=== PATIENT | female | born 1955 | race Caucasian/White ===

== ENCOUNTER 2023-11-20 07:08 | Outpatient (RCR) | payer MEDICARE, OTHER, SELFPAY | END 2023-11-20 23:59 | disposition home or self-care (01) | LOC: RPT 07:08 | PROVIDERS: ATTENDING PHYSICIAN Physical Medicine & Rehabilitation; FAMILY PHYSICIAN Family Medicine | DX: I69.398 Other sequelae of cerebral infarction (principal); Z73.6 Limitation of activities due to disability; I69.320 Aphasia following cerebral infarction | CPT/HCPCS: 92507; 97110; 97535 ==

== ENCOUNTER 2023-11-23 06:57 | Outpatient (RCR) | payer MEDICARE, OTHER, SELFPAY | END 2023-11-23 23:59 | disposition home or self-care (01) | LOC: RPT 06:57 | PROVIDERS: ATTENDING PHYSICIAN Physical Medicine & Rehabilitation; FAMILY PHYSICIAN Family Medicine | DX: I69.320 Aphasia following cerebral infarction (principal); I69.354 Hemiplegia and hemiparesis following cerebral infarction affecting left non-dominant side; I69.322 Dysarthria following cerebral infarction; I69.312 Visuospatial deficit and spatial neglect following cerebral infarction; Z73.6 Limitation of activities due to disability | CPT/HCPCS: 92507; 97110; 97535 ==

== ENCOUNTER 2024-01-18 11:22 | Emergency (ER) | payer MEDICARE, OTHER, SELFPAY ==
[2024-01-18 11:25] VITALS: BP 182/107
--- NOTE | 2024-01-18 12:44 | ED.GENMED ---
History of Present Illness
General
Chief Complaint: Skin Problem
Source: patient and spouse
Time Seen by Provider: 01/18/24 12:00
Travel History
Have you had any contact with someone who has COVID-19?: No
Do you have any symptoms of coronavirus? Fever > 100 degrees, chills, cough, shortness of breath, sore throat, loss of taste or smell, muscle aches, or headache?: No
History of Present Illness
History of Present Illness:
68-year-old female with past medical history of CVA, hypertension, hyperlipidemia, previous rectal cancer presenting to the emergency department for evaluation after she started with left ring finger swelling, pain and erythema over the last 12
hours. Patient notes she has 7 rings on this finger. She normally does not take the rings off. She denies any trauma to the affected area. No other concerns.
Past History
Past History
ED Past Medical History: Cancer, CVA, HTN and Hypercholesterolemia
Social History
Tobacco: Non-smoker
Alcohol: None
Drug: None
Personal:
Living: with family
Review of Systems
Review of Systems
All Other Systems: ROS reviewed and negative except as documented in HPI and ROS
Phy Exam
Physical Exam
Physical Exam:
GENERAL: Alert , in no apparent distress
EYE: conjunctiva clear
Head: Normocephalic atraumatic
NECK: Supple,
ENT: mmm.
LUNGS: no acute respiratory distress
NEUROLOGICAL: Alert and oriented
SKIN: Warm and dry, skin intact.
MUSCULOSKELETAL: well perfused. Multiple rings on the left ring finger with surrounding erythema, edema and ecchymosis. Sensation is intact. Hand/finger is malodorous. Patient does allow for range of motion of the finger but does complain of
pain while doing so
PSYCH: Normal and appropriate interaction.
Scores
Heart Failure Risk
Heart Failure Risk Score: Not Applicable
Heart Score for Chest Pain Patients
STEMI patient?: Not applicable
Withdrawal Assessment of Alcohol
Withdrawal Assessment Completed?: Not applicable
Course
Vital Signs
Initial and Last Documented VS:
Initial Vital Signs
Temp Pulse Resp BP Pulse Ox
97.9 F 82 18 182/107 97
01/18/24 11:25 01/18/24 11:25 01/18/24 11:25 01/18/24 11:25 01/18/24 11:25
Last Documented Vital Signs
Temp Pulse Resp BP Pulse Ox
97.9 F 82 18 182/107 97
01/18/24 11:25 01/18/24 11:25 01/18/24 11:25 01/18/24 11:25 01/18/24 11:25
Procedures
Digital Block
Location of injection for digital block: base of digit
Indiction for Digital Block: pain relief
Was sensory exam normal prior to exam?: intack pin prick
Type of anesthesia: 1% Lidocaine w/o EPI
Complications: none- good anesthesia
Ring removal
Ring removed with: lubricant and other
Is finger swollen distally?: Yes
Distal sensation: intact to touch
Distal capillary refill: brisk
MDM/Problems Addressed
Differential Diagnosis Includes:
Edema is secondary to multiple rings, tenosynovitis, cellulitis
MDM/Problems Addressed:
68-year-old female presenting to the emergency department due to pain over the ring finger with inability to get multiple rings off of her finger secondary to pain and edema. There does appear to be some sort of infectious process underneath the
rings. Due to significant pain patient was digitally blocked with adequate anesthesia that allowed for further exam and removal of rings. 3 rings were removed completely intact. 4 of the rings needed to be cut with [employer] trauma ring cutters.
There was superficial bleeding from the areas of edema following the ring removal with overlying erythema. I do have concern for an overlying cellulitis. Will irrigate wound copiously with saline and peroxide. Discussion of oral antibiotics and
at home management versus inpatient IV antibiotics discussed and patient ultimately be prefers a trial of home antibiotics. She will either come back to the emergency department on Monday to be reevaluated by myself or follow-up with her primary
care provider early in the week next week.
*Pulse Oximetry
Patient hypoxic: no
*Critical Care Note
Total Time (30-74mins, 75-104mins- exclusive of procedures): Not Applicable
ED Attending Note
-
Portions of this chart may have been created with voice recognition software.� Occasional wrong word or��sound alike� substitutions may have occurred due to the inherent limitations of voice recognition software.
Discharge Plan
Departure
Patient Disposition: Home (Routine Discharge)
Date of Disposition: 01/18/24
Time of Disposition: 13:18
Patient with high blood pressure during this ER visit?: Yes
Discharge Problem:
Cellulitis of right ring finger, Ring or other jewelry causing external constriction, initial encounter
Instructions: Cellulitis (Skin Infection), Adult (DC)
Prescriptions:
New
cephalexin 500 mg tablet
500 mg PO Q8H 7 Days Qty: 21 0RF
No Action
atorvastatin 80 MG tablet
80 mg PO DAILY
oxybutynin chloride 5 mg tablet extended release 24hr
5 mg PO QPM
levothyroxine [Synthroid] 50 mcg tablet
50 mcg PO DAILY
vitamin A-vitamin C-vit E-min Tablet
1 tab PO DAILY
omega 5-exo-awm-fish oil [Fish Oil] 1,000 mg (120 mg-180 mg) Capsule
1 cap PO DAILY
aspirin 81 mg Tablet,Chewable
81 mg PO DAILY Qty: 30 0RF
famotidine 20 mg Tablet
20 mg PO DAILY Qty: 30 0RF
cholecalciferol (vitamin D3) 25 mcg (1,000 unit) Tablet
25 mcg PO DAILY Qty: 30 0RF
alendronate 70 MG tablet
70 mg PO WEEKLY Qty: 4 0RF
amlodipine 2.5 MG tablet
2.5 mg PO DAILY Qty: 30 0RF
warfarin [Jantoven] 5 mg Tablet
5 mg PO QPM Qty: 30 0RF
Referrals:
Diego Rosenberg MD [Family Provider] -
Activity Restrictions/Additional Instructions:
Return to the ER on Monday after 9am to see me for wound follow up
Interventions
Interventions:
*Risk Screen - Suicide Last Done: 01/18/24 11:28
*General Assessment Last Done: 01/18/24 11:28
*Neglect/Abuse Screening Last Done: 01/18/24 11:28
*ED COVID-19 Vaccine History Last Done: 01/18/24 11:28
*Nursing Disposition Last Done: 01/18/24 14:05
ED-Skin Assessment Last Done: 01/18/24 12:29
Discharge Date and Time
Discharge Date/Time: 01/18/24 14:05
Print Language: JORDANIAN
== END 2024-01-18 14:05 | disposition home or self-care (01) ==
LOC: EMR 11:22
PROVIDERS: EMERGENCY PHYSICIAN Emergency Medicine; FAMILY PHYSICIAN Family Medicine
DX: L03.011 Cellulitis of right finger (principal); W49.04XA Ring or other jewelry causing external constriction, initial encounter; R22.32 Localized swelling, mass and lump, left upper limb; I10 Essential (primary) hypertension; E78.00 Pure hypercholesterolemia, unspecified; Z85.048 Personal history of other malignant neoplasm of rectum, rectosigmoid junction, and anus; Z86.73 Personal history of transient ischemic attack (TIA), and cerebral infarction without residual deficits
CPT/HCPCS: 99283

== ENCOUNTER 2024-08-23 15:43 | Emergency (ER) | payer MEDICARE, OTHER, SELFPAY ==
[2024-08-23 15:52] VITALS: BP 150/82; BMI 25.0
--- NOTE | 2024-08-23 16:08 | ED.GENMED ---
History of Present Illness
General
Chief Complaint: Psychiatric Problem
Time Seen by Provider: 08/23/24 16:07
History of Present Illness
History of Present Illness:
TIME OF INITIAL ENCOUNTER: 4:15 PM
HPI: Patient comes in from home and reportedly wants to 302 the patient. She reportedly ran out into the neighbors earlier today. She has been having worsening cognitive function as a slow progression over the last several months.
EXAM:
GENERAL: The patient has somewhat of a bizarre affect however is well-groomed
HEENT: Moist oral mucosa
CARDIOVASCULAR: No murmurs, normal heart rate, regular rhythm, No chest wall tenderness
PULMONARY: No respiratory distress, breath sounds are clear and equal
ABDOMEN: Soft with no peritoneal signs, no tenderness
NEUROLOGIC: Excellent strength all extremities, no coordination deficits
PSYCHIATRIC: She does not understand why she is here, has limited insight and judgment, not oriented to month or place
EXTREMITIES: Nontender, no edema, moves all extremities equally
SKIN: No rash, no lesions
NUMBER AND COMPLEXITY OF PROBLEMS ADDRESSED AT THE ENCOUNTER
� Chronic conditions affecting care: High blood pressure, hyperlipidemia, records indicate that she has been aphasic after stroke
� Acute Exacerbation and/or Progression of Chronic Illness: This is an acute problem
� Differential Diagnosis includes: Progressive functional decline, worsening aphasia, cognitive deficits related to old stroke, psychosis
AMOUNT AND/OR COMPLEXITY OF DATA TO BE REVIEWED AND ANALYZED
� I performed an independent evaluation of and my interpretation is:
EKG:
CT:
X-rays:
Laboratory Studies: UDS and urinalysis unremarkable, alcohol undetected, CBC shows mild anemia with hemoglobin just slightly lower than baseline, normal electrolytes, minimal renal insufficiency near baseline
Other:
� Review of other/old records: I reviewed records, the patient was seen by speech therapy in November 2023 and at that time there was evidence for 'mild receptive and moderate expressive aphasia and she presented with deficits in
reading comprehension and written language formulation'
� Clinical information was obtained by an independent historian: EMS
� Prescriptions/Medications Considered but not given:
� Further testing considered but not performed:
RISK OF COMPLICATIONS AND/OR MORBIDITY OR MORTALITY OF PATIENT MANAGEMENT
� Social determinants of health affecting care: Lives at home with
� Discussion with other providers: Discussed with crisis
� Escalation of care including admission/observation vs risk of discharge considered:
ANY OTHER UPDATES:
8:30 PM: Still awaiting disposition from crisis
8:45 PM: 302 was not upheld. Telepsych felt this is more dementia related and I do agree. The patient is not oriented to month and cannot tell me her age and does not understand why she is here. The tells me that this has been a slow
progression. I favor more of a diagnosis of dementia versus worsening executive function related to prior strokes. She has an appointment to see a neurologist in 2 weeks.
Past History
Past History
ED Past Medical History: Cancer, CVA, HTN and Hypercholesterolemia
Social History
Tobacco: Non-smoker
Alcohol: None
Drug: None
Personal:
Living: with family
Phy Exam
Physical Exam
Physical Exam:
See HPI
Course
Orders/Labs/Results
Orders:
Orders
08/23/24 16:49
Alcohol Urgent
Complete Blood Count/With Diff Urgent
Comprehensive Metabolic Panel Urgent
Drug Screen, Urine [Urine Drug Abuse Screen] Urgent
Date Specimen was Collected: 08/23/24
Time Specimen was Collected: 16:16
TSH Reflex To Free T4 Urgent
Urinalysis Reflex To Culture Urgent
Date Specimen was Collected: 08/23/24
Time Specimen was Collected: 16:16
08/23/24 17:56
Crisis Consult Urgent
Reason for Consult: 302
Abnormal Lab Results
08/23/24
16:49
RBC 3.59 L 10^6/uL
(4.20-5.40)
Hgb 10.1 L g/dL
(12.0-16.0)
Hct 29.6 L %
(37.0-47.0)
Absolute Lymphs (auto) 0.4 L 10^3/uL
(1.2-3.4)
Neutrophils % 86.1 H %
(42.2-75.2)
Lymphocytes % 5.9 L %
(20.5-51.1)
BUN 20 H mg/dl
(7-17)
Creatinine 1.2 H mg/dL
(0.6-1.0)
Glucose 108 H mg/dl
(70-99)
AST 43 H U/L
(14-36)
08/23/24 16:49
08/23/24 16:49
Vital Signs
Initial and Last Documented VS:
Initial Vital Signs
Temp Pulse Resp BP Pulse Ox
98.6 F 88 20 150/82 99
08/23/24 15:52 08/23/24 15:52 08/23/24 15:52 08/23/24 15:52 08/23/24 15:52
Last Documented Vital Signs
Temp Pulse Resp BP Pulse Ox
98.6 F 88 20 150/82 99
08/23/24 15:52 08/23/24 15:52 08/23/24 15:52 08/23/24 15:52 08/23/24 15:52
*Critical Care Note
Total Time (30-74mins, 75-104mins- exclusive of procedures): Not Applicable
ED Attending Note
-
Portions of this chart may have been created with voice recognition software.� Occasional wrong word or��sound alike� substitutions may have occurred due to the inherent limitations of voice recognition software.
Discharge Plan
Departure
Patient Disposition: Home (Routine Discharge)
Date of Disposition: 08/23/24
Time of Disposition: 18:17
Patient with high blood pressure during this ER visit?: No
Discharge Problem:
Dementia
Instructions: Dementia ED
Prescriptions:
No Action
atorvastatin 80 MG tablet
80 mg PO DAILY
oxybutynin chloride 5 mg tablet extended release 24hr
5 mg PO QPM
levothyroxine [Synthroid] 50 mcg tablet
50 mcg PO DAILY
vitamin A-vitamin C-vit E-min Tablet
1 tab PO DAILY
omega 3-pln-tmk-fish oil [Fish Oil] 1,000 mg (120 mg-180 mg) Capsule
1 cap PO DAILY
aspirin 81 mg Tablet,Chewable
81 mg PO DAILY Qty: 30 0RF
cephalexin 500 mg tablet
500 mg PO Q8H 7 Days Qty: 21 0RF
famotidine 20 mg Tablet
20 mg PO DAILY Qty: 30 0RF
cholecalciferol (vitamin D3) 25 mcg (1,000 unit) Tablet
25 mcg PO DAILY Qty: 30 0RF
alendronate 70 MG tablet
70 mg PO WEEKLY Qty: 4 0RF
amlodipine 2.5 MG tablet
2.5 mg PO DAILY Qty: 30 0RF
warfarin [Jantoven] 5 mg Tablet
5 mg PO QPM Qty: 30 0RF
Activity Restrictions/Additional Instructions:
Based on my evaluation of the patient, I think that her symptoms very well could be related to either dementia or worsening cognitive dysfunction related to prior stroke. There is no sign of an acute abnormality based on her blood work and urine.
It is very important that you go with her to see the neurologist on the . Return here if worse or any other barth.
Interventions
Interventions:
*Risk Screen - Suicide Last Done: 08/23/24 15:52
*General Assessment Last Done: 08/23/24 15:52
*Neglect/Abuse Screening Last Done: 08/23/24 15:52
ED- Fall Risk Assessment Last Done: 08/23/24 15:52
*ED COVID-19 Vaccine History Last Done: 08/23/24 15:52
ED-Psychological Assessment Last Done: 08/23/24 15:52
Discharge Date and Time
Print Language: CROATIAN
[2024-08-23 16:58] LABS: % Basophils 0.5 % (0-2); % Eosinophils 0.5 % (0-6); % Immature Granulocytes 0.3 % (0-0.5); % Lymphocytes 5.9 % (20.5-51.1); % Monocytes 6.7 % (1.7-9.3); % Neutrophils 86.1 % (42.2-75.2); Absolute Lymphocytes 0.4 10^3/uL (1.2-3.4); Absolute Monocytes 0.4 10^3/uL (0.1-0.6); Absolute Neutrophils 5.2 10^3/uL (1.4-6.5); Hematocrit 29.6 % (37.0-47.0); Hemoglobin 10.1 g/dL (12.0-16.0); Mean Corp Hgb Conc. 34.1 g/dL (33.0-37.0); Mean Corpuscular Hgb 28.1 pg (27.0-31.0); Mean Corpuscular Volume 82.5 fL (81.0-99.0); Mean Platelet Volume 9.9 fL (7.4-10.4); Nucleated Red Blood Cells % 0 %; Platelet Count 189 10^3/uL (130-400); Red Blood Cell Count 3.59 10^6/uL (4.20-5.40); Red Cell Dist. Width 14.2 % (11.5-14.5); White Blood Cell Count 6.1 10^3/uL (4.8-10.8)
[2024-08-23 17:30] LABS: ALT (SGPT) 29 U/L (0-35); AST (SGOT) 43 U/L (14-36); Albumin 4.1 g/dl (3.5-5.0); Alcohol None Detected; Alkaline Phosphatase 68 U/L (38-126); Blood Urea Nitrogen 20 mg/dl (7-17); Calcium 9.2 mg/dl (8.4-10.2); Carbon Dioxide 25 mmol/L (22-30); Chloride 107 mmol/L (98-107); Estimated Creatinine Clearance 39 ml/min; Glucose 108 mg/dl (70-99); Potassium 4.7 mmol/L (3.5-5.1); Sodium 141 mmol/L (135-145); Total Bilirubin 0.7 mg/dl (0.2-1.3); Total Protein 6.9 g/dl (6.3-8.2)
[2024-08-23 17:59] LABS: TSH Reflex To Free T4 3.64 uIU/ml (0.47-4.68)
[2024-08-23 18:24] LABS: Urine Albumin Negative (Neg - Trace); Urine Bilirubin Negative (Negative); Urine Character Clear (Clear); Urine Color Yellow; Urine Glucose Negative (Negative); Urine Ketone Negative (Negative); Urine Leukocyte Negative (Negative); Urine Nitrite Negative (Negative); Urine Occult Blood Negative (Negative); Urine Urobilinogen Negative (Neg - 1+); Urine pH 6.5 (5.0-9.0)
[2024-08-23 18:46] LABS: Amphetamines Negative (Negative); Barbiturates Negative (Negative); Benzodiazepines Negative (Negative); Buprenorphine Negative (Negative); Cocaine Negative (Negative); Marijuana Negative (Negative); Methadone Negative (Negative); Methamphetamines Negative (Negative); Opiates Negative (Negative); Phencyclidine Negative (Negative); Tricyclic Antidepressants Negative (Negative)
[2024-08-23 20:38] VITALS: BP 127/95
== END 2024-08-23 21:01 | disposition home or self-care (01) ==
LOC: EMR 15:43
PROVIDERS: EMERGENCY PHYSICIAN Emergency Medicine; FAMILY PHYSICIAN Internal Medicine
DX: F03.90 Unspecified dementia, unspecified severity, without behavioral disturbance, psychotic disturbance, mood disturbance, and anxiety (principal); E78.00 Pure hypercholesterolemia, unspecified; I10 Essential (primary) hypertension; Z86.73 Personal history of transient ischemic attack (TIA), and cerebral infarction without residual deficits
CPT/HCPCS: 99283; 80053; 80306; 81003; 82077; 84443; 85025

== ENCOUNTER 2024-09-02 13:43 | Emergency (ER) | payer MEDICARE, OTHER, SELFPAY ==
[2024-09-02 13:49] VITALS: BP 156/87
--- NOTE | 2024-09-02 14:30 | ED.GENMED ---
History of Present Illness
<Frank Greene PA-C - Last Filed: 09/02/24 16:50>
General
Chief Complaint: Social Service Referral
Source: patient
Exam Limitations: none
Time Seen by Provider: 09/02/24 14:12
History of Present Illness
History of Present Illness:
68-year-old female presents for reevaluation. She was here 1 week ago for the same. She has a history of dementia and her behavior has been calm more violent lately. She is very agitated. She is a flight risk and has run several times from the
house. She throws things at family members. She does not recognize her family members. It is not safe for her to be home or for her family members to be around her. They are looking for placement. Patient was here 1 week ago under 302 but the
302 was not upheld as there was underlying dementia. It has come to the point now where the family is unable to take care of her.
Past History
<Frank Greene PA-C - Last Filed: 09/02/24 16:50>
Past History
ED Past Medical History: Cancer, CVA, HTN and Hypercholesterolemia
Social History
Tobacco: Non-smoker
Alcohol: None
Drug: None
Personal:
Living: with family
Phy Exam
<BASILIO Raman Last Filed: 09/02/24 16:50>
Physical Exam
Physical Exam:
General: Well-appearing female no acute respiratory distress
HEENT: Normocephalic atraumatic
Heart: Regular rate and rhythm no murmurs
Lungs: Clear no wheeze
Abdomen soft nontender nondistended
Extremities: No cyanosis
Course
<BASILIO Raman Last Filed: 09/02/24 16:50>
Orders/Labs/Results
Orders:
Orders
09/02/24 14:05
Case Management Consult ONCE
Case Management Consult: VN/Home Care
Comment: worsening dimentia-aggressive. family can not care for her.
09/02/24 14:21
PT Consult [Pt Eval And Treat] Urgent
Activity Level: Ambulate
09/02/24 14:33
Crisis Consult Urgent
Reason for Consult: agitation
09/02/24 15:07
PSYCHIATRY CONSULT Urgent
Consulting Provider: Sylvester Gonsales
Was physician already notified: Yes
09/02/24 19:09
Drug Screen, Urine [Urine Drug Abuse Screen] Urgent
09/02/24 19:10
Electrocardiogram (*1) Urgent
Reason for Study: Other
Other Reason for Exam: alt ms
CT Head W/o Iv Contrast Urgent
Comment:
Reason For Exam: alt ms
EKG- Treatment ONCE
Alprazolam [Xanax] 0.5 mg PO NOW STA
09/03/24 08:00
Escitalopram Oxalate [Lexapro] 5 mg PO DAILY
Vital Signs
Initial and Last Documented VS:
Initial Vital Signs
Temp Pulse Resp BP Pulse Ox
98.3 F 76 20 156/87 97
09/02/24 13:49 09/02/24 13:49 09/02/24 13:49 09/02/24 13:49 09/02/24 13:49
Last Documented Vital Signs
Temp Pulse Resp BP Pulse Ox
98.3 F 76 20 156/87 97
09/02/24 13:49 09/02/24 13:49 09/02/24 13:49 09/02/24 13:49 09/02/24 13:49
<Patrick Ames, DO - Last Filed: 09/02/24 19:54>
Orders/Labs/Results
Orders:
Orders
09/02/24 14:05
Case Management Consult ONCE
Case Management Consult: VN/Home Care
Comment: worsening dimentia-aggressive. family can not care for her.
09/02/24 14:21
PT Consult [Pt Eval And Treat] Urgent
Activity Level: Ambulate
09/02/24 14:33
Crisis Consult Urgent
Reason for Consult: agitation
09/02/24 15:07
PSYCHIATRY CONSULT Urgent
Consulting Provider: Sylvester Gonsales
Was physician already notified: Yes
09/02/24 19:09
Drug Screen, Urine [Urine Drug Abuse Screen] Urgent
09/02/24 19:10
Electrocardiogram (*1) Urgent
Reason for Study: Other
Other Reason for Exam: alt ms
CT Head W/o Iv Contrast Urgent
Comment:
Reason For Exam: alt ms
EKG- Treatment ONCE
Alprazolam [Xanax] 0.5 mg PO NOW STA
09/03/24 08:00
Escitalopram Oxalate [Lexapro] 5 mg PO DAILY
Vital Signs
Initial and Last Documented VS:
Initial Vital Signs
Temp Pulse Resp BP Pulse Ox
98.3 F 76 20 156/87 97
09/02/24 13:49 09/02/24 13:49 09/02/24 13:49 09/02/24 13:49 09/02/24 13:49
Last Documented Vital Signs
Temp Pulse Resp BP Pulse Ox
98.3 F 76 20 156/87 97
09/02/24 13:49 09/02/24 13:49 09/02/24 13:49 09/02/24 13:49 09/02/24 13:49
Mileylt;Frank Greene PA-C - Last Filed: 09/02/24 16:50>
MDM/Problems Addressed
Differential Diagnosis Includes:
Patient here with progressive decline in cognitive function now associated with violent behavior and behaviors that pose her risk for others or for herself. Family unable to take care of patient. Patient had lab work done last time she was here.
No new issues otherwise but they are worsening. Discussed with case management who feels as though this is more appropriate for [facility] placement. Will consult crisis
<Frank Greene PA-C - Last Filed: 09/02/24 16:50>
*Critical Care Note
Total Time (30-74mins, 75-104mins- exclusive of procedures): Not Applicable
<Frank Greene PA-C - Last Filed: 09/02/24 16:50>
Update Note
Update Note:
Discussed case with CM, crisis and psychiatry who all saw the patient. Psychiatry recommends placement in geriatric psychiatric facility secondary to level of agitation and dementia. Crisis team working on placement. I reviewed labs from last
week. No new studies were ordered at this time.
Crisis working on placement for [facility]. Case signed out
ED Attending Note
<Frank Greene PA-C - Last Filed: 09/02/24 16:50>
-
Portions of this chart may have been created with voice recognition software.� Occasional wrong word or��sound alike� substitutions may have occurred due to the inherent limitations of voice recognition software.
<Patrick Ames DO - Last Filed: 09/02/24 19:54>
ED Attending Note
Patient seen and examined by attending physician: Yes
I performed the substantive portion of visit, reviewed & personally made and approve the management plan that is documented in note by myself or ROJELIO.: Yes
I performed a history and physical exam of patient and discussed management with resident, I reviewed resident's note and agree with documented findings and plan of care.: Yes
ED Attending Note:
Patient intermittently agitated while in ED. She was seen by psychiatry who recommended Lexapro but not ordered until the morning. Giving a dose of Xanax. Currently awaiting placement. EKG unremarkable and QTc 408 ms.
Discharge Plan
Departure
Patient Disposition: Psych Facility
Date of Disposition: 09/02/24
Time of Disposition: 16:49
Discharge Problem:
Dementia
Prescriptions:
No Action
atorvastatin 80 MG tablet
80 mg PO DAILY
oxybutynin chloride 5 mg tablet extended release 24hr
5 mg PO QPM
levothyroxine [Synthroid] 50 mcg tablet
50 mcg PO DAILY
vitamin A-vitamin C-vit E-min Tablet
1 tab PO DAILY
omega 6-ntq-zvn-fish oil [Fish Oil] 1,000 mg (120 mg-180 mg) Capsule
1 cap PO DAILY
aspirin 81 mg Tablet,Chewable
81 mg PO DAILY Qty: 30 0RF
cephalexin 500 mg tablet
500 mg PO Q8H 7 Days Qty: 21 0RF
famotidine 20 mg Tablet
20 mg PO DAILY Qty: 30 0RF
cholecalciferol (vitamin D3) 25 mcg (1,000 unit) Tablet
25 mcg PO DAILY Qty: 30 0RF
alendronate 70 MG tablet
70 mg PO WEEKLY Qty: 4 0RF
amlodipine 2.5 MG tablet
2.5 mg PO DAILY Qty: 30 0RF
warfarin [Jantoven] 5 mg Tablet
5 mg PO QPM Qty: 30 0RF
Referrals:
Diego Rosenberg MD [Family Provider] -
Interventions
Interventions:
*Risk Screen - Suicide Last Done: 09/02/24 14:12
*General Assessment Last Done: 09/02/24 14:12
*Neglect/Abuse Screening Last Done: 09/02/24 14:12
ED-Psychological Assessment Last Done: 09/02/24 14:12
Discharge Date and Time
Print Language: POLISH
--- NOTE | 2024-09-02 14:35 | CM ---
Addendum entered by Yady Tse RN 09/02/24 15:57:
CM was made aware that crisis cannot place in [facility] at this time due to concerns for lack of psychiatric diagnosis, disposition plan at family is going to refuse to take her home and patient does not have a POA. CM updated CM director with
discharge planning difficulties. CM advised ED PA that placement in a SNF or dementia unit would be difficult as patient's behaviors are not managed.
Plan to await psychiatry consult.
Original Note:
CM reviewed medical records. Patient has been denied a 302 during last admission. CM met with family and they would be agreeable to a 201 for [facility]. CM advised PA to consult crisis.
--- NOTE | 2024-09-02 16:31 | CS.PSYCHR ---
Consult Summary - Psychiatry
-
Pt is a 68 yo female with history of several ischemic strokes, last in April of 2023, who presents with progressive cognitive decline, mood and behavior disturbance. Dtr and (reportedly is POA) present, giving history; pt is unable to give
relevant history. Pt was brought to ED last week for same issues. Family states pt started on Zyprexa 5 mg HS for the past 3 days without benefit. Pt reportedly crying and perseverating daily, not eating or sleeping regularly, up repeatedly at
night. Family reports pt has been easily agitated, throwing things including furniture and clothes down the stairway, wanders out of the house. Pt reportedly needs increasing help with self-care and the home is not equipped (eg has a claw-foot
tub, pt not able to negotiate). Dtr lives in [place], came to help and notes a marked deterioration in the pt, did not recognize dtr at first.
Psych Hx: denied prior to onset of strokes in Nov 2019, reported cognitive decline since then
No prior inpatient or outpatient psychiatric treatment. Started on Zyprexa 5 mg HS- took for the past 3 nights- not effective per family
PMH: ischemic strokes- 11/2019, February 2022 L frontal lobe, April 2023 Rt frontal/parietal; hypertension, hyperlipidemia, anal cancer in remission S/P resection
SH: retired, residing with in older home in [place]
MSE: alert, sitting on gurney, oriented to self/name only, not able to give history, perseverative- repeats 'help me'. No current agitation. No signs of psychosis. Affect is tearful, mood depressed, expressing feelings of guilt
Imp: Unspecified Depressive d/o
Dementia, likely vascular, progressive, with behavior disturbance
Rec: Inpatient [facility] placement. Start trial of SSRI;
would hold off Zyprexa for now- could give 5 mg IM prn for severe agitation/aggressive behavior
will follow
[2024-09-02] MEDS: XANAX 0.5 MG PO (19:17)
[2024-09-02 20:40] VITALS: BP 144/78
[2024-09-03 05:39] VITALS: BP 139/74
[2024-09-03 06:55] VITALS: BP 145/89
[2024-09-03] MEDS: LEXAPRO 5 MG PO (07:17)
[2024-09-03] MEDS: ZYPREXA 5 MG IM (07:29)
[2024-09-03] MEDS: ATIVAN 2 MG IM (08:32)
--- NOTE | 2024-09-03 09:38 | ED.CRISIS ---
ED Crisis Note
ED Crisis Note
Subjective:
Patient sent in for aggressive behavior in the setting of known dementia. Seen by psychiatry, medications adjusted (Zyprexa changed to as needed, started on SSRI). No acute events overnight has been resting comfortably but this morning patient
awake and more agitated, trying to get out of bed and difficult to redirect.
Objective:
Awake and alert, pleasant but disoriented. Actively trying to climb out of bed.
Assessment/Plan:
68-year-old female with dementia presents with worsening behavioral issues. Already seen by psychiatry and medications have been adjusted, they are working towards placement and in fact she has a [facility] bed available at 3 PM today.
Currently here in the ER however she is agitated and difficult to redirect. Will give a dose of IM Zyprexa, IM Ativan and continue to monitor.
--- NOTE | 2024-09-03 12:01 | W.PN.UPDATE ---
Update Note
Progress Note Update
Pt seen, reviewed with Crisis and ED nurse. Pt was trying to get out of bed overnight/early this morning- was given Zyprexa and Ativan IM. Pt is sleeping, resting quietly. Crisis staff report potential bed at [facility] in [facility].
Imp: Unspecified Depressive d/o
Dementia, likely vascular, progressive, with behavior disturbance
Rec: pursuing inpatient [facility] placement
--- NOTE | 2024-09-03 12:48 | EDRN ---
Pt has a lot of jewelry on her person... 5 bracelets, at least 4 necklaces ( yellow metal chains and 1 that resembles pearls). She has rngs on her lt hand ring finger. There were earrings in place but the prior shift removed these and they are in a
container in a belonging bag with her shoes. I am not trying to remove anything from her d/t her degree of dementia and agitation potential , I did take photos and will try to attach photos to her chart
--- NOTE | 2024-09-03 12:54 | EDRN ---
[facility] on Mrs Beatty
[2024-09-03 15:58] VITALS: BP 111/75
== END 2024-09-03 16:01 ==
LOC: EMR 13:43
PROVIDERS: CONSULT PHYSICIAN Psychiatry & Neurology Psychiatry; EMERGENCY PHYSICIAN Emergency Medicine; FAMILY PHYSICIAN Family Medicine
DX: F03.918 Unspecified dementia, unspecified severity, with other behavioral disturbance (principal); I10 Essential (primary) hypertension; E78.00 Pure hypercholesterolemia, unspecified; Z86.73 Personal history of transient ischemic attack (TIA), and cerebral infarction without residual deficits; Z85.048 Personal history of other malignant neoplasm of rectum, rectosigmoid junction, and anus
CPT/HCPCS: 96372; 99285; 70450; 93005; J2358

== ENCOUNTER 2024-11-04 06:56 | Emergency (ER) | payer MEDICARE, OTHER, SELFPAY ==
[2024-11-04 07:00] VITALS: BP 112/76
[2024-11-04 07:31] LABS: % Basophils 0.6 % (0-2); % Eosinophils 0.4 % (0-6); % Immature Granulocytes 0.7 % (0-0.5); % Lymphocytes 5.9 % (20.5-51.1); % Monocytes 5.7 % (1.7-9.3); % Neutrophils 86.7 % (42.2-75.2); Absolute Lymphocytes 0.3 10^3/uL (1.2-3.4); Absolute Monocytes 0.3 10^3/uL (0.1-0.6); Absolute Neutrophils 4.7 10^3/uL (1.4-6.5); Hematocrit 26.9 % (37.0-47.0); Hemoglobin 8.8 g/dL (12.0-16.0); Mean Corp Hgb Conc. 32.7 g/dL (33.0-37.0); Mean Corpuscular Hgb 28.6 pg (27.0-31.0); Mean Corpuscular Volume 87.3 fL (81.0-99.0); Mean Platelet Volume 9.3 fL (7.4-10.4); Nucleated Red Blood Cells % 0 %; Platelet Count 117 10^3/uL (130-400); Red Blood Cell Count 3.08 10^6/uL (4.20-5.40); White Blood Cell Count 5.4 10^3/uL (4.8-10.8)
[2024-11-04 07:34] LABS: Urine Albumin Trace (Neg - Trace); Urine Bilirubin Negative (Negative); Urine Character Slightly Cloudy (Clear); Urine Color Yellow; Urine Glucose Negative (Negative); Urine Ketone Negative (Negative); Urine Leukocyte 2+ (Negative); Urine Nitrite Positive (Negative); Urine Occult Blood Negative (Negative); Urine Urobilinogen Negative (Neg - 1+); Urine pH 6.5 (5.0-9.0)
[2024-11-04 07:41] LABS: ALT (SGPT) 18 U/L (0-35); AST (SGOT) 27 U/L (14-36); Albumin 3.1 g/dl (3.5-5.0); Alkaline Phosphatase 97 U/L (38-126); Blood Urea Nitrogen 20 mg/dl (7-17); Calcium 8.2 mg/dl (8.4-10.2); Carbon Dioxide 24 mmol/L (22-30); Chloride 102 mmol/L (98-107); Glucose 110 mg/dl (70-99); Lipase 101 U/L (23-300); Potassium 4.1 mmol/L (3.5-5.1); Sodium 136 mmol/L (135-145); Total Bilirubin 0.4 mg/dl (0.2-1.3); Total Protein 6.2 g/dl (6.3-8.2); eGFR > 60.00
--- NOTE | 2024-11-04 07:48 | ED.GENMED ---
Addendum entered and electronically signed by Frank Greene PA-C 11/07/24 07:02:
Urine culture shows greater than 100,000 colony-forming units of E. coli. Treated with fosfomycin. The E. coli was pansensitive
Original Note:
History of Present Illness
General
Chief Complaint: Seizure
Source: patient
Exam Limitations: altered mental status and dementia
Time Seen by Provider: 11/04/24 07:33
Nursing documentation reviewed up to this point in time: agreed with
History of Present Illness
History of Present Illness:
68-year-old female past medical history of dementia previous stroke hypertension hyperlipidemia presenting to the emergency department after her prison staff believes she was having convulsions. They claimed that she was having spasms of the
right shoulder. EMS observed this as well and believe it look like she was having spasm of the shoulder but otherwise she was responding and speaking with them en route. She does have dementia at baseline and is not oriented to person place or
time at baseline. They also noticed blood to her lip
Past History
Past History
ED Past Medical History: Cancer, CVA, HTN and Hypercholesterolemia
Social History
Tobacco: Non-smoker
Alcohol: None
Drug: None
Personal:
Living: with family
Review of Systems
Review of Systems
Allergies reviewed?: Yes
All Other Systems: ROS reviewed and negative except as documented in HPI and ROS
Phy Exam
Physical Exam
Physical Exam:
GENERAL: Alert , in no apparent distress
EYE: pupils equal and reactive
NECK: Supple, no significant adenopathy.
ENT: o/p clr, mmm.
CARDIAC: Regular rate and rhythm .
LUNGS: Clear breath sounds bilaterally, no acute respiratory distress, no wheezes/rales/rhonchi
ABDOMEN: Soft, without focal tenderness, no r/g, no cvat
NEUROLOGICAL: Moving all extremities no focal neuro deficits
SKIN: Warm and dry, skin intact.
MUSCULOSKELETAL: No edema, well perfused.
PSYCH: Normal and appropriate interaction.
Course
Orders/Labs/Results
Orders:
Orders
11/04/24 07:20
COVID-19 Antigen Urgent
Source: Nasal Swab
Complete Blood Count/With Diff Urgent
Comprehensive Metabolic Panel Urgent
Lipase Urgent
Urinalysis Reflex To Culture Urgent
Date Specimen was Collected: 11/04/24
Time Specimen was Collected: 07:04
Urine Microscopic Reflex Cult Urgent
Influenza A+B Rapid Molecular Urgent
[place] Source: Nasal Swab
Specimen Description:
Urine Culture Urgent
[place] Source: U
Specimen Description:
Date Specimen was Collected: 11/04/24
Time Specimen was Collected: 07:04
11/04/24 07:45
CT Head W/o Iv Contrast Urgent
Comment:
Reason For Exam: AMS, seizure like activity
11/04/24 09:04
Fosfomycin [Monurol] 3 gm PO ONCE ONE
Abnormal Lab Results
11/04/24
07:20
RBC 3.08 L 10^6/uL
(4.20-5.40)
Hgb 8.8 L g/dL
(12.0-16.0)
Hct 26.9 L %
(37.0-47.0)
MCHC 32.7 L g/dL
(33.0-37.0)
RDW 15.0 H %
(11.5-14.5)
Plt Count 117 L 10^3/uL
(130-400)
Absolute Lymphs (auto) 0.3 L 10^3/uL
(1.2-3.4)
Immature Gran % 0.7 H %
(0-0.5)
Neutrophils % 86.7 H %
(42.2-75.2)
Lymphocytes % 5.9 L %
(20.5-51.1)
BUN 20 H mg/dl
(7-17)
Glucose 110 H mg/dl
(70-99)
Calcium 8.2 L mg/dl
(8.4-10.2)
Total Protein 6.2 L g/dl
(6.3-8.2)
Albumin 3.1 L g/dl
(3.5-5.0)
Urine Nitrite (Reflex) Positive A
(Negative)
Leukocyte Esterase Rfl 2+ A
(Negative)
Urine WBC (Reflex) 26-30 A /HPF
(0-5)
Urine Bacteria (Reflex) Many A
(Negative)
11/04/24 07:20
11/04/24 07:20
Vital Signs
Initial and Last Documented VS:
Initial Vital Signs
Temp Pulse Resp BP Pulse Ox
99.1 F 89 20 112/76 96
11/04/24 07:00 11/04/24 07:00 11/04/24 07:00 11/04/24 07:00 11/04/24 07:00
Last Documented Vital Signs
Temp Pulse Resp BP Pulse Ox
99.1 F 73 13 114/73 97
11/04/24 07:27 11/04/24 10:00 11/04/24 10:00 11/04/24 10:00 11/04/24 10:00
MDM/Problems Addressed
MDM/Problems Addressed:
68-year-old female presenting to the emergency department from nursing facility with concerns of convulsions. Here no ongoing issues. Patient is following basic commands moving all extremities she does have a small cut to her lip at the central
portion of lip that does not appear to be likely traumatic appears more consistent with likely dryness to the lip that split with movement. Patient in no distress here. Vital signs normal on arrival. Patient no distress hemoglobin 8.8 typically
around 10 no evidence of bleeding. Otherwise slight elevation in BUN to creatinine ratio urinalysis potentially consistent with UTI was given antibiotic otherwise stable throughout ER stay no emergent findings head CT with chronic findings but no
emergent findings. Stable for outpatient management return precautions given.
*Critical Care Note
Total Time (30-74mins, 75-104mins- exclusive of procedures): Not Applicable
ED Attending Note
-
Portions of this chart may have been created with voice recognition software.� Occasional wrong word or��sound alike� substitutions may have occurred due to the inherent limitations of voice recognition software.
Discharge Plan
Departure
Patient Disposition: Intermediate/SNF
Date of Disposition: 11/04/24
Time of Disposition: 10:37
Patient with high blood pressure during this ER visit?: No
Condition: Good
Covid-19: Not Applicable
Discharge Problem:
Acute UTI
Instructions: Urinary tract infections in adults
Prescriptions:
No Action
atorvastatin 80 MG tablet
40 mg PO QPM
oxybutynin chloride 5 mg tablet extended release 24hr
5 mg PO DAILY
aspirin 81 mg Tablet,Chewable
81 mg PO DAILY Qty: 30 0RF
amlodipine 2.5 MG tablet
5 mg PO DAILY
alendronate 70 MG tablet
70 mg PO SA
olanzapine 5 mg Tablet
5 mg PO HS
levothyroxine [Synthroid] 75 mcg Tablet
75 mcg PO DAILY
cholecalciferol (vitamin D3) [Vitamin D3] 25 mcg (1,000 unit) Tablet
125 mcg PO DAILY
sennosides [senna] 8.6 mg Tablet
8.6 mg PO DAILY
acetaminophen [Tylenol] 325 mg Tablet
650 mg PO Q6HPRN PRN (Reason: MILD PAIN)
polyethylene glycol 3350 [Miralax] 17 gram Powder In Packet
17 g PO DAILY
famotidine [Pepcid] 20 mg Tablet
20 mg PO DAILY
magnesium hydroxide [Milk of Magnesia] 400 mg/5 mL Suspension
2,400 mg PO [id number] PRN (Reason: CONSTIPATION)
ferrous sulfate 325 mg (65 mg iron) Tablet
325 mg PO DAILY
sertraline 50 mg Tablet
50 mg PO DAILY
ezetimibe [Zetia] 10 mg Tablet
10 mg PO DAILY
Referrals:
Jaja Shaw CRNP [Family Provider] -
Activity Restrictions/Additional Instructions:
Genet was found to have a urinary tract infection here. She was given a single dose of fosfomycin for treatment. Otherwise her head CT did not show any emergent findings. Hemoglobin was slightly lower than baseline. This should be monitored as
an outpatient. Return for any worsening, new or concerning symptoms.
Interventions
Interventions:
*Risk Screen - Suicide Last Done: 11/04/24 07:00
*General Assessment Last Done: 11/04/24 07:00
*Neglect/Abuse Screening Last Done: 11/04/24 07:00
*ED COVID-19 Vaccine History Last Done: 11/04/24 07:28
ED- Cardiac Assessment Last Done: 11/04/24 07:28
ED- Neurological Assessment Last Done: 11/04/24 07:28
ED- Pulmonary Assessment Last Done: 11/04/24 07:28
Discharge Date and Time
Print Language: [place]
[2024-11-04 07:55] LABS: COVID-19 Antigen Negative (Negative)
[2024-11-04 08:00] VITALS: BP 99/68
[2024-11-04 09:00] VITALS: BP 112/71
[2024-11-04 09:00] LABS: Urine Amorphous Seen
[2024-11-04 09:01] LABS: Urine Bacteria Many (Negative); Urine Red Blood Cell 0-2 /HPF (0-2); Urine White Cell 26-30 /HPF (0-5)
[2024-11-04 10:00] VITALS: BP 114/73
[2024-11-04] MEDS: MONUROL 3 GM PO (10:11)
[2024-11-04 11:00] VITALS: BP 125/83
[2024-11-04 12:00] VITALS: BP 123/85
== END 2024-11-04 12:39 ==
LOC: EMR 06:56
PROVIDERS: EMERGENCY PHYSICIAN Emergency Medicine; FAMILY PHYSICIAN Nurse Practitioner Adult Health
DX: N39.0 Urinary tract infection, site not specified (principal); I10 Essential (primary) hypertension; E78.00 Pure hypercholesterolemia, unspecified
CPT/HCPCS: 99284; 70450; 80053; 81003; 81015; 83690; 85025; 87077; 87086; 87186; 87502; 87811

== ENCOUNTER 2025-01-08 07:34 | Emergency (ER) | payer MEDICARE, OTHER, SELFPAY ==
[2025-01-08] VITALS (7 sets, daily range): BP systolic 114–147; BP diastolic 67–91
--- NOTE | 2025-01-08 07:48 | ED.GENMED ---
History of Present Illness
General
Chief Complaint: Head Injury
Source: ambulance crew
Time Seen by Provider: 01/08/25 07:43
History of Present Illness
History of Present Illness:
69-year-old female from behavioral dementia unit presents via EMS after being found on the floor in her room. The bed was at its lowest setting and she was found next to her bed. It looks like she bit her lip. She cannot provide any history. She
is anticoagulated on Coumadin.
Past History
Past History
ED Past Medical History: Cancer, CVA, HTN and Hypercholesterolemia
Social History
Tobacco: Non-smoker
Alcohol: None
Drug: None
Personal:
Living: with family
Phy Exam
Physical Exam
Physical Exam:
General: Well-appearing female no acute respiratory distress
HEENT: Normocephalic swollen lower lip. There is also area of ecchymosis lateral to the right eye. The pupils are equal round reactive
Heart: Regular rate and rhythm
Lungs: Clear no wheeze
Abdomen is soft nontender nondistended
Musculoskeletal exam: No reproducible tenderness about the spine. Patient is rigid in general however motion of her hips seems to reproduce pain response. No obvious deformities.
Course
Orders/Labs/Results
Orders:
Orders
01/08/25 07:48
CT Head W/o Iv Contrast Urgent
Comment:
Reason For Exam: fall
CR Pelvis - 1 Or 2 Views Urgent
Comment:
Reason For Exam: fall
01/08/25 08:10
Complete Blood Count/With Diff Urgent
Comprehensive Metabolic Panel Urgent
Prothrombin Time Urgent
Abnormal Lab Results
01/08/25
08:10
WBC 4.1 L 10^3/uL
(4.8-10.8)
RBC 3.07 L 10^6/uL
(4.20-5.40)
Hgb 8.8 L g/dL
(12.0-16.0)
Hct 26.6 L %
(37.0-47.0)
Absolute Lymphs (auto) 0.4 L 10^3/uL
(1.2-3.4)
Neutrophils % 80.6 H %
(42.2-75.2)
Lymphocytes % 8.6 L %
(20.5-51.1)
PT 21.6 H Sec
(11.4-14.6)
BUN 24 H mg/dl
(7-17)
01/08/25 08:10
01/08/25 08:10
Vital Signs
Initial and Last Documented VS:
Initial Vital Signs
BP
138/73
01/08/25 07:48
Last Documented Vital Signs
Temp BP Pulse Ox
98.6 F 132/75 98
01/08/25 07:50 01/08/25 10:00 01/08/25 11:00
MDM/Problems Addressed
Differential Diagnosis Includes:
Fall. There is a bite vanita to the mucosal surface of the lower lip without significant laceration. CT of head pending. Will x-ray pelvis as well. She is anticoagulated will check INR and basic labs
*Critical Care Note
Total Time (30-74mins, 75-104mins- exclusive of procedures): Not Applicable
Update Note
Update Note:
CT of the head shows no acute finding. X-ray of the pelvis negative for acute finding. Stable for discharge back to facility
ED Attending Note
-
Portions of this chart may have been created with voice recognition software.� Occasional wrong word or��sound alike� substitutions may have occurred due to the inherent limitations of voice recognition software.
Discharge Plan
Departure
Patient Disposition: Home (Routine Discharge)
Date of Disposition: 01/08/25
Time of Disposition: 11:49
Patient with high blood pressure during this ER visit?: No
Discharge Problem:
Fall
Instructions: Minor Head Injury (DC)
Prescriptions:
No Action
atorvastatin 80 MG tablet
40 mg PO QPM
oxybutynin chloride 5 mg tablet extended release 24hr
5 mg PO DAILY
aspirin 81 mg Tablet,Chewable
81 mg PO DAILY Qty: 30 0RF
amlodipine 2.5 MG tablet
5 mg PO DAILY
alendronate 70 MG tablet
70 mg PO SA
olanzapine 5 mg Tablet
5 mg PO HS
levothyroxine [Synthroid] 75 mcg Tablet
75 mcg PO DAILY
cholecalciferol (vitamin D3) [Vitamin D3] 25 mcg (1,000 unit) Tablet
125 mcg PO DAILY
sennosides [senna] 8.6 mg Tablet
8.6 mg PO DAILY
acetaminophen [Tylenol] 325 mg Tablet
650 mg PO Q6HPRN PRN (Reason: MILD PAIN)
polyethylene glycol 3350 [Miralax] 17 gram Powder In Packet
17 g PO DAILY
famotidine [Pepcid] 20 mg Tablet
20 mg PO DAILY
magnesium hydroxide [Milk of Magnesia] 400 mg/5 mL Suspension
2,400 mg PO [id number] PRN (Reason: CONSTIPATION)
ferrous sulfate 325 mg (65 mg iron) Tablet
325 mg PO DAILY
sertraline 50 mg Tablet
50 mg PO DAILY
ezetimibe [Zetia] 10 mg Tablet
10 mg PO DAILY
Referrals:
UNKNOWN,NO INTERVIEW [Family Provider] -
Activity Restrictions/Additional Instructions:
Resume normal medication regimen. Return if needed
Interventions
Interventions:
*Risk Screen - Suicide Last Done: 01/08/25 07:50
*General Assessment Last Done: 01/08/25 07:50
*Neglect/Abuse Screening Last Done: 01/08/25 07:50
ED- Neurological Assessment Last Done: 01/08/25 07:50
ED-Skin Assessment Last Done: 01/08/25 07:50
Discharge Date and Time
Print Language: [place]
[2025-01-08 08:26] LABS: % Basophils 0.7 % (0-2); % Eosinophils 0.5 % (0-6); % Immature Granulocytes 0.5 % (0-0.5); % Lymphocytes 8.6 % (20.5-51.1); % Monocytes 9.1 % (1.7-9.3); % Neutrophils 80.6 % (42.2-75.2); Absolute Lymphocytes 0.4 10^3/uL (1.2-3.4); Absolute Monocytes 0.4 10^3/uL (0.1-0.6); Absolute Neutrophils 3.3 10^3/uL (1.4-6.5); Hematocrit 26.6 % (37.0-47.0); Hemoglobin 8.8 g/dL (12.0-16.0); Mean Corp Hgb Conc. 33.1 g/dL (33.0-37.0); Mean Corpuscular Hgb 28.7 pg (27.0-31.0); Mean Corpuscular Volume 86.6 fL (81.0-99.0); Mean Platelet Volume 9.7 fL (7.4-10.4); Nucleated Red Blood Cells % 0 %; Platelet Count 164 10^3/uL (130-400); Red Blood Cell Count 3.07 10^6/uL (4.20-5.40); Red Cell Dist. Width 14.1 % (11.5-14.5); White Blood Cell Count 4.1 10^3/uL (4.8-10.8)
[2025-01-08 08:34] LABS: INR 1.83; PT 21.6 Sec (11.4-14.6)
[2025-01-08 08:43] LABS: ALT (SGPT) 21 U/L (0-35); AST (SGOT) 27 U/L (14-36); Albumin 3.8 g/dl (3.5-5.0); Alkaline Phosphatase 93 U/L (38-126); Blood Urea Nitrogen 24 mg/dl (7-17); Calcium 9.2 mg/dl (8.4-10.2); Carbon Dioxide 26 mmol/L (22-30); Chloride 104 mmol/L (98-107); Glucose 89 mg/dl (70-99); Potassium 4.1 mmol/L (3.5-5.1); Sodium 139 mmol/L (135-145); Total Bilirubin 0.7 mg/dl (0.2-1.3); Total Protein 7.3 g/dl (6.3-8.2); eGFR > 60.00
== END 2025-01-08 14:37 | disposition home or self-care (01) ==
LOC: EMR 07:34
PROVIDERS: Physician Assistant; EMERGENCY PHYSICIAN Emergency Medicine; FAMILY PHYSICIAN Family Medicine
DX: S09.90XA Unspecified injury of head, initial encounter (principal); W19.XXXA Unspecified fall, initial encounter; F03.90 Unspecified dementia, unspecified severity, without behavioral disturbance, psychotic disturbance, mood disturbance, and anxiety; E78.00 Pure hypercholesterolemia, unspecified; I10 Essential (primary) hypertension; Z79.01 Long term (current) use of anticoagulants; Z86.73 Personal history of transient ischemic attack (TIA), and cerebral infarction without residual deficits
CPT/HCPCS: 99284; 70450; 72170; 80053; 85025; 85610

== ENCOUNTER 2025-03-09 13:23 | Inpatient (IN) | payer MEDICARE, OTHER, SELFPAY ==
[2025-03-09] VITALS (53 sets, daily range): BP systolic 83–159; BP diastolic 46–96; BMI 18.9
--- NOTE | 2025-03-09 10:43 | ED.GENMED ---
History of Present Illness
<Sally Nguyen PA-C - Last Filed: 03/09/25 14:59>
General
Chief Complaint: Rectal Bleeding
Source: ambulance crew and shelter records
Exam Limitations: dementia
Time Seen by Provider: 03/09/25 10:22
History of Present Illness
History of Present Illness:
Patient is a 69-year-old female with past medical history of hypertension, hyperlipidemia, previous CVA, vascular dementia, lupus anticoagulant syndrome, currently on warfarin, rectal cancer, gastric ulcer, who presents to the emergency department
via EMS from [facility] for evaluation of rectal bleeding. According to staff, the patient had a large bloody bowel movement this morning. They report that it was bright red but also somewhat tarry in some places. Patient
herself is unable to provide additional history given her dementia and communication deficit.
Past History
<BASILIO Gomez Last Filed: 03/09/25 14:59>
Past History
ED Past Medical History: Cancer, CVA, HTN and Hypercholesterolemia
Social History
Tobacco: Non-smoker
Alcohol: None
Drug: None
Personal:
Living: with family
Review of Systems
<BASILIO Gomez Last Filed: 03/09/25 14:59>
Review of Systems
Allergies reviewed?: Yes
Unable to obtain full review of systems at this time due to: dementia
Other source history: shelter and ambulance crew
All Other Systems: ROS reviewed and negative except as documented in HPI and ROS
ABD/GI: Reports bloody stools
Phy Exam
<Sally Nguyen PA-C - Last Filed: 03/09/25 14:59>
General Physical Exam
General Presentation: no apparent distress
General age: appears older than age
General Skin: warm, dry, pale and other
General Habitus: frail
General Mental: alert
General Hydration: appears well hydrated
General Chronic Disability: contractures and diapers
ENT Exam
ENT Exam: EOMI, pharynx normal, neck supple and normocephalic
Eye Exam
Eye Exam: PERRL, cornea clear and other (pale conjunctiva bilaterally)
Cardiovascular Exam
Cardiovascular Exam: regular rate/rhythm, no edema, no murmur and normal peripheral pulses
Pulmonary Exam
Pulmonary Exam: lungs clear, no respiratory distress, no rales, no crackles, no rhonchi, no stridor, no wheezing and no cough
Gastrointestinal Exam
Gastrointestinal Exam: normal bowel sounds, non tender, soft, no organomegaly, no pulsatile mass and non distended
Rectal Exam: other (maroon blood noted at the rectum, no external hemorrhoids or anal fissures)
Stool: maroon
Guaiac Status: grossly bloody - positive
Neurological Exam
Neurological Exam: alert and other (non-verbal)
Musculoskeletal Exam
Musculoskeletal Exam: other (contractures of the lower extremities)
Skin Exam
Skin Exam: normal color, warm/dry and other (scattered ecchymosis to the bilateral lower extremities)
Psychiatric Exam
Psychiatric Exam: normal mood/affect
Course
<Sally Nguyen PA-C - Last Filed: 03/09/25 14:59>
Orders/Labs/Results
Orders:
Orders
03/09/25 10:42
IV Insert/Care/Rem.- Treatment PRN
03/09/25 10:43
0.9% Sodium Chloride 1000 ml [Nss] 1,000 ml IV BOLUS
03/09/25 10:49
Type+Screen Urgent
Complete Blood Count/With Diff Urgent
Comprehensive Metabolic Panel Urgent
Ferritin Urgent
Comment: ADD ON
Iron Urgent
Comment: ADD ON
Lipase Urgent
PTT Urgent
Prothrombin Time Urgent
Total Iron Binding Urgent
Comment: ADD ON
Transferrin [S] Urgent
Comment: ADD ON
03/09/25 11:59
* Blood Bank Products Urgent
Blood Bank Products: *Packed RBC Leuko(PRBC's)
Quantity: 3
Transfuse Today: Yes
Reason: Anemia
03/09/25 12:01
IV Insert/Care/Rem.- Treatment PRN
03/09/25 12:29
ABO2 Routine
BBK Wristband Number:
Associate notified that ABO2 has been ordered: [id number]
Date: 03/09/25
Time: 11:34
Video Tape Duplicator ID: [id number]
03/09/25 12:33
Prothrombin Complex(Pcc),Human [Kcentra] 2,660 unit Empty Viaflex Container 100 ml [Viaflex Empty Container] 100 ml IV NOW
03/09/25 12:35
Phytonadione [Aquamephyton] 10 mg 0.9% Sodium Chloride 50 ml [Nss] 50 ml IV NOW
03/09/25 12:50
Admit/Transfer Patient As Directed
Co-Sign Provider:
Level of Care: Inpatient admission
Assign to:: ICU
Physician / Group: shaq
Diagnosis: UGIB
Reason for Hospitalization: UGIB
Expected length of stay greater than two midnights?: Yes
ELOS- Estimated Length of Stay in days: 2
I certify the patient meets the requirements for IP care: Yes
03/09/25 12:51
Code Status As Directed
Resuscitation Status: Do not resuscitate
Reached after discussion with pt or family/Healthcare POA: Yes
DNR Bracelet Application ONCE
PRN Pain Medication Management As Directed
May give lesser potent ordered pain med per pt: Yes
preference::
Protocol:: Medication orders for pain may be administered in a
manner that supports deferring to patient preference
when the pt is:
- Requesting an ordered lesser potent pain medication.
Least to most potent pain medications are defined
as: acetaminophen < NSAID < tramadol < opioids
(morphine, oxycodone, hydromorphone).
- Requesting a lesser dose of the same medication IF
ORDERED.
- Requesting a less intrusive route of administration
if both routes are prescribed by the provider (PO <
IV).
03/09/25 12:53
Add On- LAB Routine
Tests Added?: tibc, ferritin, transferrin, iron
Pantoprazole [Protonix IV] 80 mg IV NOW STA
03/09/25 13:00
Pantoprazole 80 mg/100 ml Nss [Protonix] 80 mg in 100 ml IV Q10H
03/09/25 13:05
0.9% Sodium Chloride [Nss (Preservative Free)] 20 ml IV NOW STA
Abnormal Lab Results
03/09/25
10:49
RBC 1.31 L 10^6/uL
(4.20-5.40)
Hgb 3.7 L* g/dL
(12.0-16.0)
Hct 11.6 L* %
(37.0-47.0)
MCHC 31.9 L g/dL
(33.0-37.0)
RDW 15.9 H %
(11.5-14.5)
MPV 10.6 H fL
(7.4-10.4)
Abs Immat Gran (auto) 0.1 H 10^3/uL
(0-0.05)
Absolute Lymphs (auto) 0.5 L 10^3/uL
(1.2-3.4)
Immature Gran % 0.9 H %
(0-0.5)
Neutrophils % 85.1 H %
(42.2-75.2)
Lymphocytes % 7.6 L %
(20.5-51.1)
PT 98.6 H Sec
(11.4-14.6)
INR > 8.0 H*
APTT 133.0 H Sec
(23.4-35.0)
Chloride 112 H mmol/L
(98-107)
Carbon Dioxide 20 L mmol/L
(22-30)
BUN 51 H mg/dl
(7-17)
Creatinine 1.2 H mg/dL
(0.6-1.0)
Glucose 132 H mg/dl
(70-99)
Calcium 8.3 L mg/dl
(8.4-10.2)
TIBC 239 L ug/dl
(265-497)
Total Protein 5.9 L g/dl
(6.3-8.2)
Albumin 3.2 L g/dl
(3.5-5.0)
Crossmatch IS Only See Detail
03/09/25 10:49
03/09/25 10:49
Vital Signs
Initial and Last Documented VS:
Initial Vital Signs
BP
105/48
03/09/25 10:26
Last Documented Vital Signs
Temp Pulse Resp BP Pulse Ox
98.1 F 86 18 112/72 98
03/09/25 10:27 03/09/25 13:45 03/09/25 13:45 03/09/25 13:45 03/09/25 13:45
Mileylt;Long Ashford DO - Last Filed: 03/09/25 13:08>
Orders/Labs/Results
Orders:
Orders
03/09/25 10:42
IV Insert/Care/Rem.- Treatment PRN
03/09/25 10:43
0.9% Sodium Chloride 1000 ml [Nss] 1,000 ml IV BOLUS
03/09/25 10:49
Type+Screen Urgent
Complete Blood Count/With Diff Urgent
Comprehensive Metabolic Panel Urgent
Ferritin Urgent
Comment: ADD ON
Iron Urgent
Comment: ADD ON
Lipase Urgent
PTT Urgent
Prothrombin Time Urgent
Total Iron Binding Urgent
Comment: ADD ON
Transferrin [S] Urgent
Comment: ADD ON
03/09/25 11:59
* Blood Bank Products Urgent
Blood Bank Products: *Packed RBC Leuko(PRBC's)
Quantity: 3
Transfuse Today: Yes
Reason: Anemia
03/09/25 12:01
IV Insert/Care/Rem.- Treatment PRN
03/09/25 12:29
ABO2 Routine
[employer]pp[employer]Pal[employer] Wristband Number:
Associate notified that ABO2 has been ordered: [id number]
Date: 03/09/25
Time: 11:34
Video Tape Duplicator ID: [id number]
03/09/25 12:33
Prothrombin Complex(Pcc),Human [Kcentra] 2,660 unit Empty Viaflex Container 100 ml [Viaflex Empty Container] 100 ml IV NOW
03/09/25 12:35
Phytonadione [Aquamephyton] 10 mg 0.9% Sodium Chloride 50 ml [Nss] 50 ml IV NOW
03/09/25 12:50
Admit/Transfer Patient As Directed
Co-Sign Provider:
Level of Care: Inpatient admission
Assign to:: ICU
Physician / Group: shaq
Diagnosis: UGIB
Reason for Hospitalization: UGIB
Expected length of stay greater than two midnights?: Yes
ELOS- Estimated Length of Stay in days: 2
I certify the patient meets the requirements for IP care: Yes
03/09/25 12:51
Code Status As Directed
Resuscitation Status: Do not resuscitate
Reached after discussion with pt or family/Healthcare POA: Yes
DNR Bracelet Application ONCE
PRN Pain Medication Management As Directed
May give lesser potent ordered pain med per pt: Yes
preference::
Protocol:: Medication orders for pain may be administered in a
manner that supports deferring to patient preference
when the pt is:
- Requesting an ordered lesser potent pain medication.
Least to most potent pain medications are defined
as: acetaminophen < NSAID < tramadol < opioids
(morphine, oxycodone, hydromorphone).
- Requesting a lesser dose of the same medication IF
ORDERED.
- Requesting a less intrusive route of administration
if both routes are prescribed by the provider (PO <
IV).
03/09/25 12:53
Add On- LAB Routine
Tests Added?: tibc, ferritin, transferrin, iron
Pantoprazole [Protonix IV] 80 mg IV NOW STA
03/09/25 13:00
Pantoprazole 80 mg/100 ml Nss [Protonix] 80 mg in 100 ml IV Q10H
03/09/25 13:05
0.9% Sodium Chloride [Nss (Preservative Free)] 20 ml IV NOW STA
Abnormal Lab Results
03/09/25
10:49
RBC 1.31 L 10^6/uL
(4.20-5.40)
Hgb 3.7 L* g/dL
(12.0-16.0)
Hct 11.6 L* %
(37.0-47.0)
MCHC 31.9 L g/dL
(33.0-37.0)
RDW 15.9 H %
(11.5-14.5)
MPV 10.6 H fL
(7.4-10.4)
Abs Immat Gran (auto) 0.1 H 10^3/uL
(0-0.05)
Absolute Lymphs (auto) 0.5 L 10^3/uL
(1.2-3.4)
Immature Gran % 0.9 H %
(0-0.5)
Neutrophils % 85.1 H %
(42.2-75.2)
Lymphocytes % 7.6 L %
(20.5-51.1)
PT 98.6 H Sec
(11.4-14.6)
INR > 8.0 H*
APTT 133.0 H Sec
(23.4-35.0)
Chloride 112 H mmol/L
(98-107)
Carbon Dioxide 20 L mmol/L
(22-30)
BUN 51 H mg/dl
(7-17)
Creatinine 1.2 H mg/dL
(0.6-1.0)
Glucose 132 H mg/dl
(70-99)
Calcium 8.3 L mg/dl
(8.4-10.2)
TIBC 239 L ug/dl
(265-497)
Total Protein 5.9 L g/dl
(6.3-8.2)
Albumin 3.2 L g/dl
(3.5-5.0)
Crossmatch IS Only See Detail
03/09/25 10:49
03/09/25 10:49
Vital Signs
Initial and Last Documented VS:
Initial Vital Signs
BP
105/48
03/09/25 10:26
Last Documented Vital Signs
Temp Pulse Resp BP Pulse Ox
98.1 F 86 18 112/72 98
03/09/25 10:27 03/09/25 13:45 03/09/25 13:45 03/09/25 13:45 03/09/25 13:45
<Long Ashford DO - Last Filed: 03/09/25 13:08>
*Critical Care Note
Total Time (30-74mins, 75-104mins- exclusive of procedures): 30
<Sally Nguyen PA-C - Last Filed: 03/09/25 14:59>
Update Note
Update Note:
69-year-old female sent to the emergency department from her nursing facility for evaluation after a large bloody bowel movement. Patient has dementia and a communication deficit from previous CVA and is unable to provide additional history.
Medics report that on their arrival the patient was hypotensive with systolics in the 80s to 90s. They report that this did improve with IV fluids that they administered and route. On arrival, patient's vital signs are stable, blood pressure is
105/48. On exam, patient does appear pale but is in no acute distress with a benign abdominal exam, rectal exam does demonstrate maroon heme positive stool. Labs were obtained and are notable for a hemoglobin of 3.7 as well as an INR greater than
8.
12:09 I spoke with patient's , Santy Beatty, phone number [phone]. He consents to blood transfusion for the patient. He reports he is the patient's power of traveling repair accountant and notes that the patient is DO NOT RESUSCITATE. In addition,
[employer] conservator notified of the case. 2 units of packed red blood cells were ordered and reversal of warfarin also initiated with vitamin K and Kcentra after discussion with ED attending who also evaluated the patient. Patient signed
out to the hospitalist without complication.
ED Attending Note
<Sally Nguyen PA-C - Last Filed: 03/09/25 14:59>
-
Portions of this chart may have been created with voice recognition software.� Occasional wrong word or��sound alike� substitutions may have occurred due to the inherent limitations of voice recognition software.
<Long Ashford DO - Last Filed: 03/09/25 13:08>
ED Attending Note
Patient seen and examined by attending physician: Yes
I performed the substantive portion of visit, reviewed & personally made and approve the management plan that is documented in note by myself or ROJELIO.: Yes
ED Attending Note:
Seen with PA examined independently 69-year-old female on warfarin presents with fatigue low blood pressure which responded to fluids looks very pale
Hemoglobin noted INR noted
Will resuscitate with packed cells reverse her coagulopathy
Consent obtained over the phone from spouse
Discharge Plan
Departure
Patient Disposition: Admit
Date of Disposition: 03/09/25
Time of Disposition: 12:36
Presentation/result/management discussed w/ accepting MD/DO: Hospitalist
Patient with high blood pressure during this ER visit?: No
Condition: Fair
Discharge Problem:
GI bleed, Anemia, Supratherapeutic INR
Interventions
Interventions:
*Risk Screen - Suicide Last Done: 03/09/25 12:51
*General Assessment Last Done: 03/09/25 12:51
*Neglect/Abuse Screening Last Done: 03/09/25 12:51
*ED- Fall Risk Assessment Last Done: 03/09/25 12:51
UE-Ifbbzd-Mbiukjrjro Assessment Last Done: 03/09/25 12:51
ED- Cardiac Assessment Last Done: 03/09/25 12:51
ED- Pulmonary Assessment Last Done: 03/09/25 12:51
[2025-03-09] MEDS: NSS 1000 IV ×2 (11:10→19:44)
[2025-03-09 11:33] LABS: ALT (SGPT) 14 U/L (0-35); AST (SGOT) 21 U/L (14-36); Albumin 3.2 g/dl (3.5-5.0); Alkaline Phosphatase 53 U/L (38-126); Blood Urea Nitrogen 51 mg/dl (7-17); Calcium 8.3 mg/dl (8.4-10.2); Carbon Dioxide 20 mmol/L (22-30); Chloride 112 mmol/L (98-107); Glucose 132 mg/dl (70-99); Lipase 76 U/L (23-300); Potassium 3.7 mmol/L (3.5-5.1); Sodium 140 mmol/L (135-145); Total Bilirubin 0.3 mg/dl (0.2-1.3); Total Protein 5.9 g/dl (6.3-8.2); eGFR 48.39
[2025-03-09 11:41] LABS: % Basophils 0.1 % (0-2); % Eosinophils 0.3 % (0-6); % Immature Granulocytes 0.9 % (0-0.5); % Lymphocytes 7.6 % (20.5-51.1); % Neutrophils 85.1 % (42.2-75.2); Absolute Immature Granulocytes 0.1 10^3/uL (0-0.05); Absolute Lymphocytes 0.5 10^3/uL (1.2-3.4); Absolute Monocytes 0.4 10^3/uL (0.1-0.6); Absolute Neutrophils 5.7 10^3/uL (1.4-6.5); Hematocrit 11.6 % (37.0-47.0); Hemoglobin 3.7 g/dL (12.0-16.0); Mean Corp Hgb Conc. 31.9 g/dL (33.0-37.0); Mean Corpuscular Hgb 28.2 pg (27.0-31.0); Mean Corpuscular Volume 88.5 fL (81.0-99.0); Mean Platelet Volume 10.6 fL (7.4-10.4); Nucleated Red Blood Cells % 0.3 %; Platelet Count 230 10^3/uL (130-400); Red Blood Cell Count 1.31 10^6/uL (4.20-5.40); Red Cell Dist. Width 15.9 % (11.5-14.5); White Blood Cell Count 6.7 10^3/uL (4.8-10.8)
[2025-03-09 11:45] LABS: PT 98.6 Sec (11.4-14.6)
[2025-03-09 11:55] LABS: INR > 8.0
--- NOTE | 2025-03-09 12:58 | HPS.HSE ---
Family Physician
-
Family Physician: Honey Leos
Chief Complaint
-
rectal bleeding
History of Present Illness
69-year-old female past medical history of hypertension, hyperlipidemia, prior CVA, vascular dementia, lupus anticoagulant on Coumadin, rectal cancer s/p chemotherapy. hypothyroidism presenting from [facility] for rectal
bleeding. Patient had a large bloody bowel movement this morning. It was bright red but somewhat tarry in some areas. Patient unable to provide additional history due to dementia.
Had colonoscopy several tears ago which was normal.
Does not take NSAIDs, Does nt drink alcohol anymore. Never smoked.
Medical History
Past Medical History
Past Medical History: Reports Other ( hypertension, hyperlipidemia, prior CVA, vascular dementia, lupus anticoagulant on Coumadin, rectal cancer s/p chemotherapy. hypothyroidism)
Past Surgical History: Reports None
Social History
Tobacco: Non-smoker
Alcohol: None
Drug: None
Family History
Family History: Not pertinent
Allergies / Home Medications
Allergies reflects when Allergies were last updated in [facility].
Home Medications with original date entered in [facility]
Allergy/Medication List:
Allergies
Allergy/AdvReac Type Severity Reaction Status Date / Time
sulfamethoxazole Allergy Rash Verified 11/04/24 07:04
[From Bactrim]
trimethoprim [From Bactrim] Allergy Rash Verified 11/04/24 07:04
Home Medications
atorvastatin 80 mg tablet 40 mg PO QPM High Cholesterol 04/04/22
oxybutynin chloride 5 mg tablet,extended release 24 hr 5 mg PO DAILY Urinary Issue 05/17/23
aspirin 81 mg chewable tablet 81 mg PO DAILY #30 tabs 05/22/23
alendronate 70 mg tablet 70 mg PO SA OSTEOPOROSIS 09/03/24
amlodipine 2.5 mg tablet 5 mg PO DAILY Blood Pressure 09/03/24
cholecalciferol (vitamin D3) 25 mcg (1,000 unit) tablet (Vitamin D3) 125 mcg PO DAILY 09/03/24
levothyroxine 75 mcg tablet (Synthroid) 75 mcg PO DAILY 09/03/24
olanzapine 5 mg tablet 5 mg PO HS 09/03/24
acetaminophen 325 mg tablet (Tylenol) 650 mg PO Q6HPRN PRN MILD PAIN 11/04/24
ezetimibe 10 mg tablet (Zetia) 10 mg PO DAILY 11/04/24
famotidine 20 mg tablet (Pepcid) 20 mg PO DAILY 11/04/24
ferrous sulfate 325 mg (65 mg iron) tablet 325 mg PO DAILY 11/04/24
magnesium hydroxide 400 mg/5 mL oral suspension (Milk of Magnesia) 2,400 mg PO [id number] PRN CONSTIPATION 11/04/24
polyethylene glycol 3350 17 gram oral powder packet (Miralax) 17 g PO DAILY 11/04/24
sennosides 8.6 mg tablet (senna) 8.6 mg PO DAILY 11/04/24
sertraline 50 mg tablet 50 mg PO DAILY 11/04/24
Review of Systems
-
History Source: Patient
A 12 point ROS was completed and negative except as noted: Yes
Constitutional: Reports No Symptoms
EENT: Reports No Symptoms
Respiratory: Reports No Symptoms
Cardiac: Reports No Symptoms
Abdomen/GI: Reports See HPI
: Reports No Symptoms
Musculoskeletal: Reports No Symptoms
Skin: Reports No Symptoms
Neurological: Reports No Symptoms
Endocrine: Reports No Symptoms
Hematologic/Lymphatic: Reports No Symptoms
Psych: Reports No Symptoms
Physical Exam
Vital Signs
Vital Signs
Temp Pulse Resp BP Pulse Ox
98.1 F 76 16 105/48 96
03/09/25 10:27 03/09/25 10:27 03/09/25 10:27 03/09/25 10:27 03/09/25 10:27
Physical Exam
General: Well Developed, Well Nourished and No Apparent Distress
HEENT: NormoCephalic, Moist mucous membranes and Atraumatic
Respiratory: Clear
Cardiac: S1/S2 and Regular Rhythm; No Murmur or Rub
GI: Soft, Non Tender, Non Distended and Normal Bowel Sounds; No Organomegaly
Rectal: Deferred by Provider
Musculoskeletal: No Clubbing, No Cyanosis and No Edema
Skin: No Rash
Neuro: Nonfocal/grossly intact
Laboratory Results
-
03/09/25 10:49
03/09/25 10:49
Laboratory Results
PT 98.6 Sec (11.4-14.6) H 03/09/25 10:49
INR > 8.0 H* 03/09/25 10:49
APTT 133.0 Sec (23.4-35.0) H 03/09/25 10:49
Total Bilirubin 0.3 mg/dl (0.2-1.3) 03/09/25 10:49
AST 21 U/L (14-36) 03/09/25 10:49
ALT 14 U/L (0-35) 03/09/25 10:49
Alkaline Phosphatase 53 U/L (38-126) 03/09/25 10:49
Lipase 76 U/L (23-300) 03/09/25 10:49
Data Reviewed
-
Lab Data: Labs Reviewed by me
Old Records: Reviewed
Impression/Plan
-
IMPRESSION:
PLAN:
# Acute blood loss anemia secondary to upper GI bleeding
# Supratherapeutic INR
-Blood pressure 90s
-Maroon-colored stool on rectal examination
- Hemoglobin of 3.7 from 8.8
-INR greater than 8, PTT 133
- IV fluids given, 2 units of blood ordered, will add third unit
-Hold Coumadin, aspirin
- Kcentra, vitamin K being given
- Check iron studies, B12 and folate
-N.p.o.
- Protonix drip
- GI consulted
# Acute kidney injury likely prerenal
- IV fluids given, monitor with fluid bolus, blood transfusion
Lupus anticoagulant
History of rectal cancer
Vascular dementia
Anxiety/depression
- Continue sertraline, olanzapine
Essential hypertension
- Hold amlodipine
Hyperlipidemia
- Continue Zetia
Prior CVA
Osteoporosis
- Hold alendronate
Hypothyroidism
- Continue levothyroxine
Rectal Cancer
-s/p chemotherapy
DNR/DNI
DVT prophylaxis SCDs
N.p.o.
[2025-03-09] MEDS: KCENTRA 100 UNIT IV (13:18)
[2025-03-09] MEDS: PROTONIX IV 80 MG IV (13:21)
[2025-03-09] MEDS: NSS (PRESERVATIVE FREE) 20 ML IV (13:24)
[2025-03-09] MEDS: AQUAMEPHYTON 51 MG IV (13:24)
[2025-03-09] MEDS: PROTONIX 100 IV ×2 (13:25→21:42)
[2025-03-09 14:09] LABS: Iron 88 ug/dl (37-170)
[2025-03-09 14:19] LABS: Percent Saturation 36 % (20-50); Total Iron Binding Capacity 239 ug/dl (265-497)
[2025-03-09 14:40] LABS: Ferritin 78.6 ng/ml (11.1-264.0)
--- NOTE | 2025-03-09 16:26 | PTCARENOTE ---
Rec'd pt at approx 1600 from ED. Pt alert and awake, oriented to self only, says few words. CHG bath completed. Monitor SR. Lungs dim, pox 98-100 RA. +BS, abd soft/nt. Small amt maroon stool with clots noted, pericare performed. in to visit
briefly, updated. 1 unit PRBCs transfusing.
--- NOTE | 2025-03-09 16:35 | CON.INTV ---
Consultation
Consultation Request
Date/Time Consultation Requested: 03/09/2025 - 160
Date/Time Consultation Performed: 03/09/2025 - 163
Requesting Provider: Dr. Acuña
Performing Provider: Dr. Lopez
Reason for Consultation: GI bleed
Medical History
-
Chief Complaint: Bloody stool
History of Present Illness:
69-year-old female with a past medical history of hypertension, hyperlipidemia, history of CVA with residual expressive aphasia, rectal cancer s/p chemotherapy and dementia who presented with rectal bleeding. Patient currently lives on a dementia
unit at [facility] and developed a moderate-sized bowel movement consisting of clots with tarry stool and demetrio blood per EMS. She was brought here to the ER for further care. Reportedly, patient does not take NSAIDs and
does not drink alcohol. In the ER she was afebrile to 98.1 �F, pulse rate 76, respiratory rate 16, BP 105/48 and saturating 96% on room air. Initial labs showed Hb 3.7, INR >8, PT 98.6 seconds, APTT 133 seconds, creatinine 1.2, serum bicarbonate
level 20, and iron saturation 36%. Patient was given 1 L NS 0.9%, Kcentra and pantoprazole and admitted to the ICU for further care. [employer] services consulted for additional management/recommendations.
When I saw the patient she was resting in bed in no acute distress. Patient is nonverbal so history and ROS unable to be obtained. Heart rate 82, BP 127/77 and saturating 98% on room air. Per the RN, she is continuing to have a mild amount of
maroon-colored blood with small amounts of clots.
PMHx: Hypertension, hyperlipidemia, back pain, history of CVA (02/2022), rectal cancer s/p chemotherapy, dementia
PSHx: Hammertoe surgery, right knee surgery, loop implantation (03/2022)
Past Medical History
Past Medical History: Other (Above as per HPI)
Past Surgical History: Other (Above as per HPI)
Social History
Tobacco: Non-smoker
Alcohol: None
Drug: None
Personal:
Living: With Family
Family History
Family History: Other (Mother: 'Heart problems')
Allergies / Home Medications
Allergies
Allergy/AdvReac Type Severity Reaction Status Date / Time
sulfamethoxazole Allergy Rash Verified 11/04/24 07:04
[From Bactrim]
trimethoprim [From Bactrim] Allergy Rash Verified 11/04/24 07:04
Home Medications
�Medication �Instructions �Recorded �Confirmed �Last Taken �Type
alendronate 70 mg tablet 70 mg PO TU OSTEOPOROSIS 09/03/24 03/09/25 Unknown History
olanzapine 5 mg tablet 5 mg PO HS 09/03/24 03/09/25 Unknown History
acetaminophen 325 mg tablet 650 mg PO Q6HPRN PRN mild 11/04/24 03/09/25 Unknown History
(Tylenol) pain/fever
ezetimibe 10 mg tablet (Zetia) 10 mg PO DAILY 11/04/24 03/09/25 Unknown History
famotidine 20 mg tablet (Pepcid) 20 mg PO DAILY 11/04/24 03/09/25 Unknown History
ferrous sulfate 325 mg (65 mg 325 mg PO Q48H 11/04/24 03/09/25 Unknown History
iron) tablet
magnesium hydroxide 400 mg/5 mL 2,400 mg PO DAILYPRN PRN 11/04/24 03/09/25 Unknown History
oral suspension (Milk of Magnesia) CONSTIPATION
sennosides 8.6 mg tablet (senna) 8.6 mg PO DAILY 11/04/24 03/09/25 Unknown History
amlodipine 5 mg tablet 5 mg PO DAILY 03/09/25 03/09/25 Unknown History
atorvastatin 40 mg tablet 40 mg PO DAILY 03/09/25 03/09/25 Unknown History
levothyroxine 100 mcg tablet 100 mcg PO DAILY 03/09/25 03/09/25 Unknown History
sertraline 100 mg tablet 100 mg PO DAILY 03/09/25 03/09/25 Unknown History
tramadol 50 mg tablet 50 mg PO TID 03/09/25 03/09/25 Unknown History
warfarin 2.5 mg tablet 2.5 mg PO QPM 03/09/25 03/09/25 Unknown History
Review of Systems
-
Unable to Obtain full review of systems at this time due to: Dementia
Vitals / Labs / Diagnostic Testing
Vital Signs
Temp Pulse Resp BP Pulse Ox
98.1 F 92 22 110/69 100
03/09/25 15:15 03/09/25 15:31 03/09/25 15:31 03/09/25 15:30 03/09/25 16:07
Lab Data
03/09/25 10:49
03/09/25 10:49
Laboratory Results
03/09/25
10:49
PT 98.6 H
INR > 8.0 H*
APTT 133.0 H
Diagnostic Testing:
Physical Exam
-
HEENT: Normocephalic and Anicteric
Cardiovascular: Peripheral Edema (negative)
Respiratory: Wheeze (negative), Rales (negative), Rhonchi (negative) and Non-Labored Respirations
GI: Soft, Non Distended, Non Tender and Normal Bowel Sounds
Neurology: Awake, Tremors (negative) and Other
Skin: Warm and Dry
General: Respiratory Distress (negative), Comfortable, Chills (negative), Sweats (negative), Other (Pushes me away when I am trying to examine her) and Other (Female who appears as stated age in NAD)
Assessment
-
Assessment: 69-year-old female with a past medical history of hypertension, hyperlipidemia, history of CVA with residual expressive aphasia, rectal cancer s/p chemotherapy and dementia who presented with rectal bleeding. Patient currently lives on
a dementia unit at [facility] and developed a moderate-sized bowel movement consisting of clots with tarry stool and demetrio blood per EMS. She was brought here to the ER for further care. Reportedly, patient does not take
NSAIDs and does not drink alcohol. In the ER she was afebrile to 98.1 �F, pulse rate 76, respiratory rate 16, BP 105/48 and saturating 96% on room air. Initial labs showed Hb 3.7, INR >8, PT 98.6 seconds, APTT 133 seconds, creatinine 1.2, serum
bicarbonate level 20, and iron saturation 36%. Patient was given 1 L NS 0.9%, Kcentra and pantoprazole and admitted to the ICU for further care. [employer] services consulted for additional management/recommendations.
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
Impression:
#Acute gastrointestinal hemorrhage, likely due to brisk upper GI bleed versus lower GI bleed
#Acute blood loss anemia due to above
#Chronic Coumadin use with supratherapeutic INR
#Coagulopathy with elevated PT, INR and APTT
#TODD (baseline creatinine 0.8 � 0.9)
#History of rectal cancer s/p chemotherapy
#History of dementia
#Anxiety depression
#History of essential hypertension
#History of CVA
#History of E. coli UTI (October 2024)
Plan:
- Hb is severely reduced at 3.7, with significantly elevated INR at >8
- 3 units PRBC is ordered and Kcentra was given
- There was reports of maroon-colored stool and also reports of tarry stool hence location of GI bleed not exactly clear at this juncture
- Maintain large-bore IV x 2
- GI consulted, recs appreciated
- Defer endoscopy to GI
- Keep NPO
- Trend H/H and transfuse if needed to keep Hb>7g/dL; keep plt>50k; INR >8 --> Kcentra given; would re-check INR to assure INR is now <1.8
- PPI gtt; can likely change to intermittent dosing by tomorrow
- Hold antiplatelet/anticoagulants for now
- If GI bleeding continues/worsens or if H&H does not rise appropriately then would favor urgent EGD, however if unstable then would obtain CTA abdomen/pelvis with consult to IR depending on findings
- Maintain MAP>65
- Would hold patient's PO antihypertensives for now in this acute period
- Would be prudent to start maintenance IVF while patient remains NPO
- Maintain SpO2 >90-94%
- Aspiration precautions; keep HOB >30-45�C
- Considering we have no recent imaging, obtain CXR to evaluate lung parenchyma
- Replete electrolytes with K>4, Mg>2
- Maintain euglycemia with goal BG 140-180
- prn nebulized bronchodilators - not currently bronchospastic
- Incentive spirometer encouraged 10x per hour for at least 4 hrs a day
- DVT ppx: SCDs for now
Code status: DNR/DNI
Continue ICU level care for this critically ill patient.
Critical care statement: A total of 42 minutes of critical care time was provided for this patient today. This includes management of unstable vital signs, evaluation of the patient at bedside, reviewing the patient's pertinent medical records
including radiographs, microbiology, laboratory evaluations, and discussion with primary team, consultants, pharmacy, nutrition, physical therapy, case management, charge nurse, critical care nursing, and respiratory therapy.
[2025-03-09 18:19] LABS: Magnesium 1.9 mg/dl (1.6-2.3); Phosphorus 4.5 mg/dl (2.5-4.5)
--- NOTE | 2025-03-09 20:00 | PTCARENOTE ---
rec'd pt resting in bed, nonverbal, occas moaning w/ stimulation, extremities stiff, does not follow commands, SR, bp stable, weak distal pulses, skin warm/dry, RA, lungs clear, sat 98, + bowel sounds, abd soft, no vomiting, npo, inc of urine, tanya
care givem
[2025-03-09 21:00] LABS: Hematocrit 19.9 % (37.0-47.0); Hemoglobin 6.9 g/dL (12.0-16.0); Mean Corp Hgb Conc. 34.7 g/dL (33.0-37.0); Mean Corpuscular Hgb 28.6 pg (27.0-31.0); Mean Corpuscular Volume 82.6 fL (81.0-99.0); Mean Platelet Volume 9.8 fL (7.4-10.4); Platelet Count 160 10^3/uL (130-400); Red Blood Cell Count 2.41 10^6/uL (4.20-5.40); Red Cell Dist. Width 14.5 % (11.5-14.5); White Blood Cell Count 6.1 10^3/uL (4.8-10.8)
[2025-03-09 21:07] LABS: INR 1.03
--- NOTE | 2025-03-09 21:14 | PTCARENOTE ---
Nikunj Zamorano NP aware of hgb 6.9, order recd
--- NOTE | 2025-03-09 21:33 | PTCARENOTE ---
1 unit prbc hung per order
[2025-03-10] VITALS (21 sets, daily range): BP systolic 101–153; BP diastolic 64–107; BMI 19.0; BMI 18.9
--- NOTE | 2025-03-10 | PTCARENOTE ---
sys reviewed, changes noted, prbc infused, chg bath done, linens changed
[2025-03-10 01:27] LABS: % Basophils 0.5 % (0-2); % Eosinophils 0.2 % (0-6); % Immature Granulocytes 1.1 % (0-0.5); % Lymphocytes 9.7 % (20.5-51.1); % Monocytes 6.9 % (1.7-9.3); % Neutrophils 81.6 % (42.2-75.2); Absolute Immature Granulocytes 0.1 10^3/uL (0-0.05); Absolute Lymphocytes 0.6 10^3/uL (1.2-3.4); Absolute Monocytes 0.4 10^3/uL (0.1-0.6); Absolute Neutrophils 5.2 10^3/uL (1.4-6.5); Hematocrit 25.2 % (37.0-47.0); Hemoglobin 8.9 g/dL (12.0-16.0); Mean Corp Hgb Conc. 35.3 g/dL (33.0-37.0); Mean Corpuscular Hgb 28.7 pg (27.0-31.0); Mean Corpuscular Volume 81.3 fL (81.0-99.0); Mean Platelet Volume 9.3 fL (7.4-10.4); Nucleated Red Blood Cells % 0.9 %; Platelet Count 155 10^3/uL (130-400); Red Cell Dist. Width 14.8 % (11.5-14.5); White Blood Cell Count 6.4 10^3/uL (4.8-10.8)
[2025-03-10 01:34] LABS: PT 13.7 Sec (11.4-14.6)
--- NOTE | 2025-03-10 01:41 | PTCARENOTE ---
inc of sm amt black soft bm, tanya care given, pt pulled out r hand IV, new R periph 22 g iv inserted
[2025-03-10 01:49] LABS: ALT (SGPT) 13 U/L (0-35); AST (SGOT) 21 U/L (14-36); Albumin 2.9 g/dl (3.5-5.0); Alkaline Phosphatase 53 U/L (38-126); Blood Urea Nitrogen 40 mg/dl (7-17); Calcium 7.9 mg/dl (8.4-10.2); Carbon Dioxide 23 mmol/L (22-30); Chloride 114 mmol/L (98-107); Estimated Creatinine Clearance 41 ml/min; Glucose 115 mg/dl (70-99); Magnesium 1.8 mg/dl (1.6-2.3); Phosphorus 3.4 mg/dl (2.5-4.5); Potassium 3.3 mmol/L (3.5-5.1); Sodium 141 mmol/L (135-145); Total Bilirubin 2.2 mg/dl (0.2-1.3); Total Protein 5.4 g/dl (6.3-8.2); eGFR > 60.00
[2025-03-10 02:53] LABS: Folate 8.9 ng/ml (2.76-20); Vitamin B12 359 pg/ml (239-931)
--- NOTE | 2025-03-10 04:00 | PTCARENOTE ---
sys reviewed, changes noted
[2025-03-10] MEDS: KCL 270 MEQ IV (06:12)
--- NOTE | 2025-03-10 07:04 | CON.GI ---
Addendum entered and electronically signed by Kristopher Light MD 03/10/25 18:54:
I saw and examined the patient.
The PA's note was reviewed and I agree with the note.
Comment:
69 year old female with h/o CVA, vascular dementia, HTN, and lupus antiphospholipid syndrome on Coumadin with previous failed ASA/Plavix, gastric ulcers and ? rectal cancer who p/w melena and rectal bleeding in setting of supratherapeutic INR. Hgb
3.7 with INR >8 on admission. BUN 51, creat 1.2. INR reversed with Kcentra, 1 today. Hgb 8.9 after transfusion. Proceeded to have EGD/unprepped colonoscopy today. EGD normal, colonoscopy showed no blood in TI/proximal colon with melenic stool
in mid/distal colon. Mild/moderate proctitis otherwise no obvious source of bleeding found. Will need hep gtt for now given her anti-phospholipid syndrome. Monitor for rebleed and if occurs, may need repeat endo eval.
Original Note:
Consultation
-
Date/Time Consultation Requested: 03/09/25 1550
Date/Time Consultation Performed: 03/10/25 0700
Requesting Provider: Sallie Acuña MD
Performing Provider: KAMAR Anderson, Kristopher Light MD
Reason for Consultation: GI bleed
Medical History
Chief Complaint / HPI
History of Present Illness:
Pt is a 69yo with hx CVA, vascular dementia, HTN, hyperlipidemia, 2023 hip fx with pinning at [facility], lupus antiphospholipid syndrome on Coumadin, ?gastric ulcers(family did not recall) and rectal cancer ( 3 years treated at [facility] with chemo-
cleared by oncology)with onset of rectal bleeding with noted red and black stools report in ER. On admission pt noted with hbg 3.7 with INR >8, BUN 51, creat 1.2 with rise in hbg to 2.2 after admission. In review with patient and family she
currently denies odynophagia, dysphagia, GERD, nausea, vomiting, abdominal pain, or diarrhea. Pt with hx constipation now with incontinence of stool since cancer treatment . No NSAIDs prior to admission.
Prior scopes
about 3 years colonoscopy - [place] rectal cancer
no hx EGD per family
04/2016 colonoscopy - [facility]- internal hemorrhoids
Past Medical History
Past Medical History: Cancer (rectal CA), CVA, HTN, Hypercholesterolemia and Other (vascular dementia, lupus antiphospholipid syndrome on coumadin, gastric ulcers)
Past Surgical History: Cardiac (loop recorder), Orthopedic (knee surgery, hip pinning ) and Other (hammertoe surgery )
Social History
Tobacco: Non-Smoker
Alcohol: Occasional
Drug: None
Personal:
Living: Other ([facility])
Employment: Retired
Family History
Family History: Other (no family hx colon caner or GI problems)
Allergies / Home Medications
Allergy/AdvReac Type Severity Reaction Status Date / Time
sulfamethoxazole Allergy Rash Verified 11/04/24 07:04
[From Bactrim]
trimethoprim [From Bactrim] Allergy Rash Verified 11/04/24 07:04
�Medication �Instructions �Recorded
alendronate 70 mg tablet 70 mg PO TU OSTEOPOROSIS 09/03/24
olanzapine 5 mg tablet 5 mg PO HS 09/03/24
acetaminophen 325 mg tablet 650 mg PO Q6HPRN PRN mild 11/04/24
(Tylenol) pain/fever
ezetimibe 10 mg tablet (Zetia) 10 mg PO DAILY 11/04/24
famotidine 20 mg tablet (Pepcid) 20 mg PO DAILY 11/04/24
ferrous sulfate 325 mg (65 mg 325 mg PO Q48H 11/04/24
iron) tablet
magnesium hydroxide 400 mg/5 mL 2,400 mg PO DAILYPRN PRN 11/04/24
oral suspension (Milk of Magnesia) CONSTIPATION
sennosides 8.6 mg tablet (senna) 8.6 mg PO DAILY 11/04/24
amlodipine 5 mg tablet 5 mg PO DAILY 03/09/25
atorvastatin 40 mg tablet 40 mg PO DAILY 03/09/25
levothyroxine 100 mcg tablet 100 mcg PO DAILY 03/09/25
sertraline 100 mg tablet 100 mg PO DAILY 03/09/25
tramadol 50 mg tablet 50 mg PO TID 03/09/25
warfarin 2.5 mg tablet 2.5 mg PO QPM 03/09/25
Review of Systems
-
Unable to obtain full review of systems at this time due to: Dementia
History Source: Patient and Family
Constitutional: Reports Fever and Weight Loss (118 prior now 110 )
EENT: Reports No Symptoms
Respiratory: Reports No Symptoms
Cardiac: Reports No Symptoms
Abdomen/GI: Reports Constipated and Other (incontinence of stool)
: Reports Incontinence
Musculoskeletal: Reports Other (hx hip fracture -- several fall at [place] )
Neurological: Reports Weakness
Endocrine: Reports No Symptoms
Hematologic/Lymphatic: Reports Bleeding
Vital Signs
Temp Pulse Resp BP Pulse Ox
98.2 F 75 15 123/67 100
03/10/25 03:28 03/10/25 06:00 03/10/25 06:00 03/10/25 06:00 03/10/25 04:00
Physical Exam
Exam
General: Well Developed, Well Nourished and No Apparent Distress
HEENT: Normocephalic and Anicteric
Respiratory: Clear
Cardiac: Regular Rhythm
GI: Soft, Non Tender and Non Distended
Rectal: Black (black stools ) and Other (no palpible masses or lesions )
Musculoskeletal: No Clubbing and No Cyanosis
Skin: Warm and Dry
Neuro: Awake, Alert and Other (confused )
Psych: Calm
Results
WBC 6.4 10^3/uL (4.8-10.8) 03/10/25 01:17
Hgb 8.9 g/dL (12.0-16.0) L D 03/10/25 01:17
Hct 25.2 % (37.0-47.0) L 03/10/25 01:17
MCV 81.3 fL (81.0-99.0) 03/10/25 01:17
Plt Count 155 10^3/uL (130-400) 03/10/25 01:17
Absolute Neuts (auto) 5.2 10^3/uL (1.4-6.5) 03/10/25 01:17
PT 13.7 Sec (11.4-14.6) 03/10/25 01:17
INR 1.00 03/10/25 01:17
APTT 133.0 Sec (23.4-35.0) H 03/09/25 10:49
Sodium 141 mmol/L (135-145) 03/10/25 01:17
Potassium 3.3 mmol/L (3.5-5.1) L 03/10/25 01:17
Chloride 114 mmol/L (98-107) H 03/10/25 01:17
Carbon Dioxide 23 mmol/L (22-30) 03/10/25 01:17
BUN 40 mg/dl (7-17) H 03/10/25 01:17
Creatinine 1.0 mg/dL (0.6-1.0) 03/10/25 01:17
Calcium 7.9 mg/dl (8.4-10.2) L 03/10/25 01:17
Total Bilirubin 2.2 mg/dl (0.2-1.3) H D 03/10/25 01:17
AST 21 U/L (14-36) 03/10/25 01:17
ALT 13 U/L (0-35) 03/10/25 01:17
Alkaline Phosphatase 53 U/L (38-126) 03/10/25 01:17
Lipase 76 U/L (23-300) 03/09/25 10:49
Diagnostic Image Results:
Prior GI Procedures:
EGD: family did not recall
Colonoscopy:
about 3 years colonoscopy - [facility] rectal cancer
04/2016 colonoscopy - [facility]- internal hemorrhoids
Assessment / Plan
-
Pt is a 69yo with hx CVA, vascular dementia, HTN, hyperlipidemia, lupus antiphospholipid syndrome on Coumadin, gastric ulcers and rectal cancer with onset of rectal bleeding with noted red and black stools report in ER. On admission pt noted with
hbg 3.7 with INR >8, BUN 51, creat 1.2 with rise in hbg to 2.2 after admission.
-rectal bleeding - red and black stools
-hx rectal cancer with chemo 3 years ago at [facility]
-anemia
-coagulopathy on admission
-hypokalemia
-hx lupus antiphospholipid ab syndrome on coumadin prior to admission
-hx rectal cancer
-possilbe hx gastric ulcers- family did not recall
'
other med problems:
-CVA
-vascular dementia
-hx hip/knee surgery
-loop recorder
PLAN:
ETiology of bleeding/anemia related to upper GI source as noted with black stools in setting of high INR-- PUD, ectasia, mass vs other --
plan for EGD today if neg will need to consider colonoscopy with hx rectal CA-- though no palpable mass on exam
NPO
replete K -- K rider already ordered
INR down to 1 today and hbg 8.9 overnight
cont PPI gtt
trend hbg
spouse updated on plan and agreeable to EGD
NSAID avoidance
-
-
Thank you for consultation and allowing me to participate in the patient's care. Please call the location director GI physician during the after hours with any questions or concerns.
[2025-03-10] MEDS: PROTONIX 100 IV (08:11)
--- NOTE | 2025-03-10 09:00 | PTCARENOTE ---
Rec'd care of patient at 0700. Patient alert. Oriented to self. Occasionally aware she is in a hospital. Confused/forgetful. Slow to respond at times. Hx cva/aphasia. Follows commands. MAEx4. NSR with prolonged QT interval on tele. Rate in the
60-70's. Lung sounds cta. Pulse ox 99-100% on RA. +BS. NPO. Reported dark stools overnight by previous RN. Incontinent of urine. CHG bath provided and purewick placed for accurate I/O. NSR/PPI/KCl infusing through peripheral INTs. Repeat H&H ordered
for 1000. GI at bedside; plan for EGD today.
[2025-03-10 10:36] LABS: Hematocrit 26.6 % (37.0-47.0); Hemoglobin 9.1 g/dL (12.0-16.0)
--- NOTE | 2025-03-10 11:14 | PTCARENOTE ---
Patient transported to GI lab for endoscopy. VSS.
--- NOTE | 2025-03-10 12:57 | PTCARENOTE ---
Patient back in room. Vitals stable. Drowsy. NSR on tele. Pulse ox 100% on RA. IVFs and PPI gtt infusing.
[2025-03-10] MEDS: NSS 1000 IV (14:00)
--- NOTE | 2025-03-10 15:59 | CM ---
Addendum entered by Vikki Garcia 03/10/25 16:12:
[facility] does not use [facility] or [facility] for referrals. Referral forwarded via standard fax to [phone]. , Swathi Quiroz.
Original Note:
Initial assessment completed with . Patient is a resident of [facility] memory care unit since September 10, 2024. She is W/CH dependent. She has a defibrillator, was not in the , does have a HC POA which will supply.
PCP is Dr. Diego Rosenberg and Pharmacy is [facility] on [address] in [place]. Discharge Plan of Care is to return to [facility]. Will forward referral.
--- NOTE | 2025-03-10 16:17 | W.PN.INTV ---
Today's Communication / Plan
Recommendations
- Monitor serial H&H
- No further bleeding noted, patient can be transferred out of ICU. [employer] service will sign off, please call as needed.
Assessment
-
Assessment: 69-year-old female with a past medical history of hypertension, hyperlipidemia, history of CVA with residual expressive aphasia, rectal cancer s/p chemotherapy and dementia who presented with rectal bleeding. Patient currently lives on
a dementia unit at [facility] and developed a moderate-sized bowel movement consisting of clots with tarry stool and demetrio blood per EMS. She was brought here to the ER for further care. Reportedly, patient does not take
NSAIDs and does not drink alcohol. In the ER she was afebrile to 98.1 �F, pulse rate 76, respiratory rate 16, BP 105/48 and saturating 96% on room air. Initial labs showed Hb 3.7, INR >8, PT 98.6 seconds, APTT 133 seconds, creatinine 1.2, serum
bicarbonate level 20, and iron saturation 36%. Patient was given 1 L NS 0.9%, Kcentra and pantoprazole and admitted to the ICU for further care. [employer] services consulted for additional management/recommendations.
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
03/10. Patient hemodynamically stable, 119/81, not on any pressors.
Current infusions, IV proton pump inhibitor as well as normal saline infusing at 75 mL/h. Saturating in high 90s on room air. No further hematochezia, melena or hematemesis noted overnight
Assessment and plan:
#1. Acute blood loss anemia with GI bleed, ?upper vs lower in the setting of Coumadin related supratherapeutic INR.
- Status post vitamin K, Kcentra and blood transfusion
- Hemoglobin improved, 9.1 this morning. No further bleeding noted
- Currently on IV PPI, plan for EGD and colonoscopy today
- Patient hemodynamically stable, not requiring any pressors.
- INR down to 1.0 this morning
Code status: DNR/DNI
Continue ICU level care for this critically ill patient.
Critical care statement: A total of 41 minutes of critical care time was provided for this patient today. This includes management of unstable vital signs, evaluation of the patient at bedside, reviewing the patient's pertinent medical records
including radiographs, microbiology, laboratory evaluations, and discussion with primary team, consultants, pharmacy, nutrition, physical therapy, case management, charge nurse, critical care nursing, and respiratory therapy.
Subjective Dataa
Subjective Data
Date of Service:
Date of Service: March 10, 2025
Subjective:
Patient comfortably sitting in bed, in no acute distress.
Review of Systems
Genitourinary: Other (No new symptoms reported.)
Objective Data
Data Reviewed
Vital Signs / I&O / Oxygen:
Vital Signs
Temp Pulse Resp BP Pulse Ox
98.3 F 73 18 119/81 100
03/10/25 15:35 03/10/25 15:00 03/10/25 15:00 03/10/25 15:00 03/10/25 15:00
Intake and Output
03/09/25 03/10/25 03/11/25
06:59 06:59 06:59
Intake Total 1500 / 1652.5 875.0 / 875.0
Output Total 625 / 625
Balance 1500 / 1652.5 250.0 / 250.0
SaO2 100
Physical Exam
General: Comfortable
HEENT: Normocephalic
Cardiovascular: S1-S2
Respiratory: Clear
GI: Soft and Non Distended
Neurology: Awake
Skin: Warm
Labs/Micro/Reports
Lab Data
03/10/25 10:13
03/10/25 01:17
Laboratory Results
03/09/25 03/10/25
20:49 01:17
PT 14.0 13.7
INR 1.03 D 1.00
--- NOTE | 2025-03-10 16:35 | PTCARENOTE ---
Patient downgraded to tele level.
--- NOTE | 2025-03-10 18:14 | W.PN.HOSP.TC ---
Addendum entered and electronically signed by Mark Major MD 03/11/25 16:30:
69 female history of hypertension dementia lupus anticoagulant on Coumadin, rectal cancer status postchemotherapy hypothyroidism
Acute blood loss anemia secondary to upper GI bleeding with a s/p 3 units PRBC supratherapeutic INR
S/p 3 units PRBC
S/p Kcentra and vitamin K
Hold Coumadin
PPI
GI consult for EGD
If noted more bleeding hemodynamically unstable obtain stat stat CT GI bleed study and start pressor support if needed along with blood transfusion
TODD early prerenal etiology
IV fluids
Lupus anticoagulant
Hold Coumadin
Consult hematology for recommendation in terms along term anticoagulation as she has had life-threatening bleeding and presented with hemoglobin of 3.7
Anxiety/depression
Continue olanzapine and sertraline
Hypothyroidism
Continue levothyroxine
Original Note:
Today's Communication/Plan
-
Endoscopy/colonoscopy
Assessment / Plan
Assessment / Plan
Impression
Patient is a 69-year-old female with extensive past medical history including hypertension hyperlipidemia, history of CVA with residual expressive aphasia, rectal cancer s/p chemo and dementia who presented with rectal bleeding. She resides in a
dementia unit at [facility]. Developed diarrhea stool with demetrio blood per EMS and was brought to ER for further care.
Does not take NSAIDs or drink alcohol. In ER she was vitally stable, maintaining saturations on room air.
Patient has a history of antiphospholipid syndrome for which she is on chronic Coumadin therapy. On arrival her hemoglobin was 3.7 and INR of greater than 8, PT greater than 98.6 seconds, APTT 133 seconds, received 2 units of Kcentra andVitamin K,
which helped to bring INR down to 1. In addition she also received 3 packs of blood now her hemoglobin is 8.9.
Endoscopy and colonoscopy done. Gastroenterology suggested heparin infusion
Assessment/plan
1. Acute blood loss anemia secondary to lower GI bleed
Presented with hemoglobin of 3.7 and INR of greater than 8
S/p vitamin K and Kcentra along with blood transfusion
Now hemoglobin improved to 8.9, INR 1, no further bleed overnight
As per the nurse, she had black stool in the morning
Endoscopy 03/10/2025
Impression: - Normal esophagus.
- No gross lesions in the entire stomach.
- Normal duodenal bulb, first portion of the duodenum
and second portion of the duodenum.
- No specimens collected.
Colonoscopy 03/10/2025
Impression: - Preparation of the colon was inadequate.
- Hemorrhoids found on perianal exam.
- The examined portion of the ileum was normal. No
blood or hematin noted.
- Blood in the rectum, in the sigmoid colon, in the
descending colon and in the transverse colon.
- Congested mucosa in the rectum.
- Erythematous mucosa in the rectum.
- Internal hemorrhoids.
- No specimens collected.
Heparin infusion suggested by Dr. Kuldeep Mancilla
2. Chronic anticoagulation for lupus antiphospholipid syndrome
Patient requires chronic Coumadin therapy
Need hematology consult in the dilemma as the patient developed bleeding with Coumadin and INR of greater than 8 with life-threatening bleed
Awaiting hematology recommendations
3. Dementia
Patient has baseline dementia
Resides at [facility]
other med problems:
-CVA
-vascular dementia
-hx hip/knee surgery
-loop recorder
DVT prophylaxis- sequential compression devices
CODE STATUS full code
Anticipated Discharge: 24 - 48 hours
Subjective/Interval History
-
Date of Service: March 10, 2025
Patient has dementia, denies any abdominal pain, any blood in stool, sleeping but easily arousable
Objective Data
-
Labs:
Laboratory Results
03/10/25
10:13
Hgb 9.1 L
Hct 26.6 L
Vital Signs:
Vital Signs
Temp Pulse Resp BP Pulse Ox
98.3 F 73 21 125/75 100
03/10/25 15:35 03/10/25 18:00 03/10/25 18:00 03/10/25 16:00 03/10/25 18:00
I&O
03/09/25 03/10/25 03/11/25
06:59 06:59 06:59
Intake Total 1500 / 1652.5 960.0 / 960.0
Output Total 825 / 825
Balance 1500 / 1652.5 135.0 / 135.0
Review of Systems
-
All other systems: Reviewed and negative
Physical Exam
-
General: No Apparent Distress and Appears Chronically Ill
HEENT: Moist Mucous Membranes and Anicteric
Respiratory: Clear to Auscultation; Negative Wheezes, Rales or Rhonchi
Cardiac: Regular Rhythm and S1/S2
GI: Soft, Nontender, Nondistended and Normal Bowel Sounds
Musculoskeletal: No Clubbing, No Cyanosis and No Edema
Skin: Warm and Dry
Neuro: Awake, Oriented and No Motor Deficits
Psych: Calm
[2025-03-10 19:52] LABS: White Blood Cell Count 11.9 10^3/uL (4.8-10.8)
[2025-03-10] MEDS: PROTONIX 40 MG PO (20:16)
[2025-03-10] MEDS: HEPARIN 3000 UNITS IV (20:19)
[2025-03-10 20:22] LABS: Hemoglobin 9.2 g/dL (12.0-16.0); Mean Corp Hgb Conc. 35.4 g/dL (33.0-37.0); Mean Corpuscular Hgb 28.9 pg (27.0-31.0); Mean Corpuscular Volume 81.8 fL (81.0-99.0); Mean Platelet Volume 9.4 fL (7.4-10.4); Platelet Count 67 10^3/uL (130-400); Red Blood Cell Count 3.18 10^6/uL (4.20-5.40); Red Cell Dist. Width 15.4 % (11.5-14.5)
[2025-03-10] MEDS: HEPARIN 25000 UNITS/250 ML IV (20:23)
--- NOTE | 2025-03-10 21:38 | CON.ONC ---
Consultation
-
Date Consultation Requested: 03/10/25
Date Consultation Performed: 03/10/25
Requesting Provider: Sallie Acuña MD
Performing Provider: Chandni Vargas MD
Reason for Consultation: Coagulopathy, anemia
Impression
Impression
Coagulopathy
Rectal bleeding in settin gof supratherapeutic INR
Plan
Plan
Warfarin is standard of care for APLA.
But in this pt with dementia and multiple other medical problems, now admitted coagulopathic and GI bleeding, switch to Eliquis could be considered.
Obtain records from [facility] regarding previous cancer treatment.
Thank you for consult, will follow along with you.
Patient History
History of Present Illness
Pt is a 69yo with hx CVA, vascular dementia, HTN, hyperlipidemia, 2023 hip fx, lupus antiphospholipid syndrome on Coumadin, gastric ulcers and rectal cancer s/p chemo/RT at [facility]. She is on coumadin for APLA. She presents with onset of rectal
bleeding. On admission pt noted with hbg 3.7 with INR >8, BUN 51, creat 1.2 with rise in hbg to 2.2 after admission. Denies being on antibiotics recently. Pt unable to give much history.
Past-Medical/Surgical History
Past Medical History
Rectal CA, CVA, HTN, Hypercholesterolemia, vascular dementia, lupus antiphospholipid syndrome on coumadin, gastric ulcers
Past Surgical History
Cardiac (loop recorder), Orthopedic (knee surgery, hip pinning ) and Other (hammertoe surgery)
Social History
Tobacco: Non-Smoker
Alcohol: Occasional
Drug: None
Personal:
Living: Other ([facility])
Employment: Retired
Family History
Family History: Denies family history of cancer or blood disorders.
Patient Medication
�Medication �Instructions �Recorded �Confirmed �Last Taken �Type
alendronate 70 mg tablet 70 mg PO OSTEOPOROSIS 09/03/24 03/09/25 Unknown History
olanzapine 5 mg tablet 5 mg PO HS Mental Health/Anxiety 09/03/24 03/09/25 Unknown History
acetaminophen 325 mg tablet 650 mg PO Q6HPRN PRN mild 11/04/24 03/09/25 Unknown History
(Tylenol) pain/fever
ezetimibe 10 mg tablet (Zetia) 10 mg PO DAILY High Cholesterol 11/04/24 03/09/25 Unknown History
famotidine 20 mg tablet (Pepcid) 20 mg PO DAILY Gastrointestinal 11/04/24 03/09/25 Unknown History
Issue
ferrous sulfate 325 mg (65 mg 325 mg PO Q48H Electrolyte 11/04/24 03/09/25 Unknown History
iron) tablet Repletion
magnesium hydroxide 400 mg/5 mL 2,400 mg PO DAILYPRN PRN 11/04/24 03/09/25 Unknown History
oral suspension (Milk of Magnesia) CONSTIPATION
sennosides 8.6 mg tablet (senna) 8.6 mg PO DAILY Constipation 11/04/24 03/09/25 Unknown History
amlodipine 5 mg tablet 5 mg PO DAILY Blood Pressure 03/09/25 03/09/25 Unknown History
atorvastatin 40 mg tablet 40 mg PO DAILY High Cholesterol 03/09/25 03/09/25 Unknown History
levothyroxine 100 mcg tablet 100 mcg PO DAILY Thyroid 03/09/25 03/09/25 Unknown History
sertraline 100 mg tablet 100 mg PO DAILY Mental 03/09/25 03/09/25 Unknown History
Health/Anxiety
tramadol 50 mg tablet 50 mg PO TID Pain 03/09/25 03/09/25 Unknown History
warfarin 2.5 mg tablet 2.5 mg PO QPM Blood Clot 03/09/25 03/09/25 Unknown History
Prevention/Tx
Active Medications
Generic Name Dose Route Start Last Admin
Trade Name Freq PRN Reason Stop Dose Admin
Heparin Sodium 25,000 units in 250 mls @ 0 mls/hr 03/10/25 18:15 03/10/25 20:23
Heparin 10490 Units/250 Ml IV 250 mls
PER PROTOCOL HERMINIA Administration
Protocol
Per Protocol
Pantoprazole Sodium 40 mg 03/10/25 20:00 03/10/25 20:16
Pantoprazole 40 Mg Delayed Release Tablet PO 04/07/25 19:59 40 mg
BID HERMINIA Administration
Sodium Chloride 0 flush 03/09/25 17:00
Sodium Chloride 0.9% (Flush) Syringe IV 04/06/25 16:59
PER PROTOCOL HERMINIA
Physical Exam
-
Awake, interactive, confused, poor historian
Labs
Lab Results
WBC 11.9 10^3/uL (4.8-10.8) H 03/10/25:25
RBC 3.18 10^6/uL (4.20-5.40) L 03/10/25:
Hgb 9.2 g/dL (12.0-16.0) L 03/10/25:
Hct 26.0 % (37.0-47.0) L 03/10/25
MCV 81.8 fL (81.0-99.0) 03/10/25:
MCH 28.9 pg (27.0-31.0) 03/10/25:
MCHC 35.4 g/dL (33.0-37.0) 03/10/25:
RDW 15.4 % (11.5-14.5) H 03/10/25:
Plt Count 67 10^3/uL (130-400) L D 03/10/25
MPV 9.4 fL (7.4-10.4) 03/10/25:
Abs Immat Gran (auto) 0.1 10^3/uL (0-0.05) H 03/10/25 01:17
Absolute Neuts (auto) 5.2 10^3/uL (1.4-6.5) 03/10/25 01:17
Absolute Lymphs (auto) 0.6 10^3/uL (1.2-3.4) L 03/10/25 01:17
Absolute Monos (auto) 0.4 10^3/uL (0.1-0.6) 03/10/25 01:17
Absolute Eos (auto) 0.0 10^3/uL (0-0.7) 03/10/25 01:17
Absolute Basos (auto) 0.0 10^3/uL (0-0.2) 03/10/25 01:17
Immature Gran % 1.1 % (0-0.5) H 03/10/25 01:17
Neutrophils % 81.6 % (42.2-75.2) H 03/10/25 01:17
Lymphocytes % 9.7 % (20.5-51.1) L 03/10/25 01:17
Monocytes % 6.9 % (1.7-9.3) 03/10/25 01:17
Eosinophils % 0.2 % (0-6) 03/10/25 01:17
Basophils % 0.5 % (0-2) 03/10/25 01:17
Creatinine 1.0 mg/dL (0.6-1.0) 03/10/25 01:17
Vital Signs
Vital Signs
Temp Pulse Resp BP Pulse Ox
98.3 F 75 21 130/71 100
03/10/25 15:35 03/10/25 19:00 03/10/25 19:00 03/10/25 19:00 03/10/25 19:00
[2025-03-11 02:56] LABS: APTT 151.9 Sec (23.4-35.0)
[2025-03-11 03:19] VITALS: BP 152/74
[2025-03-11 07:00] VITALS: BP 140/83
--- NOTE | 2025-03-11 07:00 | W.PN.GI.CBS2 ---
Addendum entered and electronically signed by Lynda Leo MD 03/11/25 17:02:
I saw and examined the patient.
The VESSEL SPECIALIST or PA's note was reviewed and I agree with the note.
Comment: 69-year-old female with history of CVA, vascular dementia, lupus antiphospholipid syndrome on Coumadin presenting with rectal bleeding and melena with INR greater than 8 and hemoglobin 3.7. She underwent an endoscopy with Dr. Light yesterday
which was negative and did a colonoscopy which showed blood in the colon. She is now having brown stools. She was started on low residue diet.
We started her heparin yesterday given her history of antiphospholipid syndrome but her platelets dramatically dropped. I discussed with hematology Dr. Church and plan to stop heparin for now as could be heparin-induced thrombocytopenia.
If has overt significant bleeding event from CTA, if recurrent drop in hemoglobin or signs of bleeding may need full prep for colonoscopy and then potential capsule.
Addendum entered and electronically signed by KAMAR Torres 03/11/25 14:37:
per review prior drop in platelets in past -- heme following Dr. Leo texted to review with heme
Addendum entered and electronically signed by KAMAR Torres 03/11/25 14:35:
pt also noted with 42,000 Etiology unclear
Addendum entered and electronically signed by KAMAR Torres 03/11/25 10:41:
bili 2.2 on 03/10 repeat pending
Original Note:
Today's Communication / Plan
-
Etiology of bleeding/anemia unclear- colonic vs SB bleeding in setting of severe coagulopathy on admission
s/p neg EGD to 2nd portion of duodenum neg and colon with blood throughout and poor prep
bleeding improved with correction of INR
if recurrent drop in hbg or signs of active bleeding consider full prep for colonoscopy then capsule
if aggressive bleeding can also consider CTA
last stool brown-yellow without signs of bleeding
clear diet ok to advance
close watch of hbg and INR- slight drop to hbg 8.4 today
currently on heparin gtt-discussed with pt, spouse and hospitalist for risk/benefit wtih anticoagulation and hx falls
for heme eval for consideration of alternative to Coumadin for antiphospholipid syndrome - if resuming coumadin stressed good watch of INR-- spouse also on coumadin so aware of importance of levels
NSAID avoidance
repeat K pending - hospitalist for management
spouse updated -- review with Dr. Major and resident team
Assessment / Plan
-
69 year old female with h/o CVA, vascular dementia, HTN, and lupus antiphospholipid syndrome on Coumadin with previous failed ASA/Plavix, gastric ulcers and ? rectal cancer who p/w melena and rectal bleeding in setting of supratherapeutic INR. Hgb
3.7 with INR >8 on admission. BUN 51, creat 1.2. INR reversed with Kcentra. Hgb 8.9 after transfusion. Proceeded to have EGD/unprepped colonoscopy 03/10. EGD normal, colonoscopy showed no blood in TI/proximal colon with melenic stool in
mid/distal colon. Mild/moderate proctitis otherwise no obvious source of bleeding found. Will need hep gtt for now given her anti-phospholipid syndrome.
Laboratory Tests
03/09/25 03/10/25 03/10/25
20:49 01:17 10:13
Hgb 6.9 L* D 8.9 L D 9.1 L
03/10/25
19:25
Hgb 9.2 L
Laboratory Tests
03/11/25
10:03
Hgb 8.4 L
03/10/25 EGD to 2nd portion duodenum Kuldeep - Normal esophagus.
- No gross lesions in the entire stomach.
- Normal duodenal bulb, first portion of the duodenum
and second portion of the duodenum.
- No specimens collected.
03/10/25 colon to TILee - Preparation of the colon was inadequate.
- Hemorrhoids found on perianal exam.
- The examined portion of the ileum was normal. No
blood or hematin noted.
- Blood in the rectum, in the sigmoid colon, in the
descending colon and in the transverse colon.
- Congested mucosa in the rectum.
- Erythematous mucosa in the rectum.
- Internal hemorrhoids.
- No specimens collected.
-rectal bleeding - red and black stools
-hx rectal cancer with chemo 3 years ago at [place]
-anemia
-coagulopathy on admission s/p K centra
-hypokalemia
-hx lupus antiphospholipid ab syndrome on Coumadin prior to admission
-hx rectal cancer
-possible hx gastric ulcers- family did not recall
'
other med problems:
-CVA
-vascular dementia
-hx hip/knee surgery
-loop recorder
PLAN:
Etiology of bleeding/anemia unclear- colonic vs SB bleeding in setting of severe coagulopathy on admission
s/p neg EGD to 2nd portion of duodenum neg and colon with blood throughout and poor prep
bleeding improved with correction of INR
if recurrent drop in hbg or signs of active bleeding consider full prep for colonoscopy then capsule
if aggressive bleeding can also consider CTA
last stool brown-yellow without signs of bleeding
clear diet ok to advance
close watch of hbg and INR- slight drop to hbg 8.4 today
currently on heparin gtt-discussed with pt, spouse and hospitalist for risk/benefit wtih anticoagulation and hx falls
for heme eval for consideration of alternative to Coumadin for antiphospholipid syndrome - if resuming coumadin stressed good watch of INR-- spouse also on coumadin so aware of importance of levels
NSAID avoidance
repeat K pending - hospitalist for management
spouse updated -- review with Dr. Major and resident team
Subjective
Subjective
Date of Service: March 11, 2025
03/11 yellow/brown stool on clear diet feeling well no complaints
Objective
Data Reviewed
Laboratory Data:
Laboratory Results
PT 13.7 Sec (11.4-14.6) 03/10/25 01:17
INR 1.00 03/10/25 01:17
APTT 151.9 Sec (23.4-35.0) H* 03/11/25 02:32
Phosphorus 3.4 mg/dl (2.5-4.5) 03/10/25 01:17
Magnesium 1.8 mg/dl (1.6-2.3) 03/10/25 01:17
Total Bilirubin 2.2 mg/dl (0.2-1.3) H D 03/10/25 01:17
AST 21 U/L (14-36) 03/10/25 01:17
ALT 13 U/L (0-35) 03/10/25 01:17
Alkaline Phosphatase 53 U/L (38-126) 03/10/25 01:17
Lipase 76 U/L (23-300) 03/09/25 10:49
Vital Signs and I&O:
Vital Signs
Temp Pulse Resp BP Pulse Ox
99.1 F 79 18 152/74 96
03/11/25 03:19 03/11/25 03:19 03/11/25 03:19 03/11/25 03:19 03/11/25 03:19
I&O
03/10/25 03/11/25 03/12/25
06:59 06:59 06:59
Intake Total 1500 / 1652.5 960.0 / 960.0
Output Total 825 / 825
Balance 1500 / 1652.5 135.0 / 135.0
Physical Exam
Physical Exam
HEENT: Anicteric and Moist mucous membranes
Cardiology: Normal Sinus Rhythm
Pulmonary: Clear
GI: Soft, Non Distended and Non Tender
Extremities: No Edema
Neuro: Non Focal
--- NOTE | 2025-03-11 09:01 | PN.CDI ---
CDI
- -
CDI:
Physician Documentation Request
Admit Date: 03/09/25 13:23
Dear Doctor Avery,
Clinical Indicators:
Patient admitted with rectal bleeding.
PMH included antiphospholipid syndrome; Home medication: Coumadin 2.5 mg po qPM.
03/10 GI consult ' who p/w melena and rectal bleeding in setting of supratherapeutic INR... Mild/moderate proctitis otherwise no obvious source of bleeding found.'
03/10 PN, 'INR of greater than 8 S/p vitamin K and Kcentra...'
Please clarify the likely relationship between the rectal bleeding and Coumadin use:
Yes, rectal bleeding is related to/associated with/exacerbated by Coumadin use.
No, rectal bleeding is not related to/associated with/exacerbated by Coumadin use.
Other, please specify
Use of terms such as suspected, likely, concern for, or probable (associated with a specific diagnosis that is being evaluated, monitored, or treated as if it exists) are acceptable and can be coded in the inpatient setting, when documented at the
time of discharge.
Thank you,
JESSICA Mcneil RN
CDI Specialist
available via tiger text
Please use your independent medical judgment in providing your response.
[2025-03-11] MEDS: PROTONIX 40 MG PO ×2 (09:03→20:39)
--- NOTE | 2025-03-11 09:13 | PN.CDI ---
CDI
- -
CDI:
Physician Documentation Request
Admit Date: 03/09/25 13:23
Dear Doctor Avery,
Clinical Indicators:
Patient admitted with rectal bleeding.
03/09 RN skin/wound assessment: Right Heel Pressure Injury Unstageable, POA
Left Lateral Ankle Pressure Injury Stage 2, POA
Physician documentation of the type and location of wounds is required for compliant documentation. Based on the above clinical findings and your assessment, please provide the following in your progress note:
1. Location of the ulcer/wound, including laterality.
2. Type (etiology) of ulcer/wound:
- Pressure (decubitus) ulcer
- Other, please specify
3. If a pressure ulcer, please also include the stage* of the ulcer:
- Stage 1 - Skin intact, non-blanchable redness
- Stage 2 - Partial thickness loss of dermis, includes intact or open blister
- Stage 3 - Full thickness tissue not including bone, tendon or muscle
- Stage 4 - Full thickness tissue loss, including exposed bone, tendon or muscle
- Unstageable - Full thickness loss in which the base of the ulcer is covered by slough (yellow, may, gonzalez, green or brown) and/or eschar (may, brown or black) in the wound bed.
- Unable to determine
Use of terms such as suspected, likely, concern for, or probable (associated with a specific diagnosis that is being evaluated, monitored, or treated as if it exists) are acceptable and can be coded in the inpatient setting, when documented at the
time of discharge.
Thank you,
JESSICA Mcneil RN
CDI Specialist
available via tiger text
Please use your independent medical judgment in providing your response.
*Source: National Pressure Ulcer Advisory Panel (NPUAP)
[2025-03-11 10:25] LABS: Hematocrit 23.6 % (37.0-47.0); Hemoglobin 8.4 g/dL (12.0-16.0); Mean Corp Hgb Conc. 35.6 g/dL (33.0-37.0); Mean Corpuscular Hgb 29.4 pg (27.0-31.0); Mean Corpuscular Volume 82.5 fL (81.0-99.0); Platelet Count 42 10^3/uL (130-400); Red Blood Cell Count 2.86 10^6/uL (4.20-5.40); Red Cell Dist. Width 15.2 % (11.5-14.5); White Blood Cell Count 9.1 10^3/uL (4.8-10.8)
[2025-03-11 10:26] LABS: APTT 65.7 Sec (23.4-35.0)
[2025-03-11 11:00] VITALS: BP 139/83
[2025-03-11 11:08] LABS: ALT (SGPT) 14 U/L (0-35); AST (SGOT) 25 U/L (14-36); Albumin 2.8 g/dl (3.5-5.0); Alkaline Phosphatase 66 U/L (38-126); Blood Urea Nitrogen 14 mg/dl (7-17); Calcium 7.7 mg/dl (8.4-10.2); Carbon Dioxide 22 mmol/L (22-30); Chloride 109 mmol/L (98-107); Estimated Creatinine Clearance 45 ml/min; Glucose 102 mg/dl (70-99); Potassium 2.4 mmol/L (3.5-5.1); Sodium 137 mmol/L (135-145); Total Bilirubin 1.3 mg/dl (0.2-1.3); Total Protein 5.2 g/dl (6.3-8.2); eGFR > 60.00
[2025-03-11] MEDS: KCL 40 MEQ PO ×2 (11:34→17:43)
--- NOTE | 2025-03-11 14:59 | W.PN.ONC ---
Today's Communication / Plan
-
Hold heparin
Monitor CBC and for bleeding
Impression
Impression
Coagulopathy
Rectal bleeding in setting of supratherapeutic INR (blood in colon on colonoscopy)
Antiphospholipid syndrome (triple positive), w/ h/o thrombosis/CVAs
Thrombocytopenia
Plan
Plan
With platelet count < 50, will hold heparin
Monitor CBC daily, monitor for bleeding
Etiology of thrombocytopenia unclear - can be seen in APL syndrome, also dilutional after multiple PRBC transfusions.
With triple positive APL syndrome, should be back on a/c when able. Coumadin is ideal if able to better monitor INR at [facility].
Subjective/Objective
Subjective/Objective
Unable to give any history or concerns. at bedside. No obvious GI bleeding, but platelets now = 42.
Vital Signs:
Vital Signs
Temp Pulse Resp BP Pulse Ox
98.5 F 77 17 139/83 97
03/11/25 11:00 03/11/25 11:00 03/11/25 11:00 03/11/25 11:00 03/11/25 11:00
Lab Results:
Laboratory Data
WBC 9.1 10^3/uL (4.8-10.8) 03/11/25 10:03
Hgb 8.4 g/dL (12.0-16.0) L 03/11/25 10:03
Plt Count 42 10^3/uL (130-400) L D 03/11/25 10:03
PT 13.7 Sec (11.4-14.6) 03/10/25 01:17
INR 1.00 03/10/25 01:17
APTT 65.7 Sec (23.4-35.0) H 03/11/25 10:03
eGFR > 60.00 03/11/25 10:03
[2025-03-11 15:00] VITALS: BP 116/67
--- NOTE | 2025-03-11 15:15 | W.PN.HOSP.TC ---
Addendum entered and electronically signed by Mark Major MD 03/11/25 16:33:
69 female history of hypertension dementia lupus anticoagulant on Coumadin, rectal cancer status postchemotherapy hypothyroidism
Acute blood loss anemia secondary to upper GI bleeding with a s/p 3 units PRBC supratherapeutic INR
S/p 3 units PRBC
S/p Kcentra and vitamin K
Hold Coumadin
PPI
GI s/p EGD/C-Scope EGD findings without acute pathology noted. C-scope findings with old blood and congested mucosa of the rectum with some erythema. Internal hemorrhoids.
If noted more bleeding hemodynamically unstable obtain stat stat CT GI bleed study and start pressor support if needed along with blood transfusion
TODD early prerenal etiology
IV fluids
Lupus anticoagulant
Hold Coumadin
Consult hematology for recommendation in terms along term anticoagulation as she has had life-threatening bleeding and presented with hemoglobin of 3.7
-Post bidirectional scope GI recommended to initiate heparin drip
Anxiety/depression
Continue olanzapine and sertraline
Hypothyroidism
Continue levothyroxine
Thrombocytopenia�acute
Did not receive heparin products prior to drop from the low 100 to the 60s. Started on heparin drip while platelets were in the 60s now 42. Will go ahead and hold heparin drip until platelet count improves to greater than 50. Hematology following
Hypokalemia replete
Original Note:
Today's Communication/Plan
-
Hold heparin
Monitor platelet count
Observe for any further bleed
Obtain medical records from [facility]
Assessment / Plan
Assessment / Plan
Impression
Patient is a 69-year-old female with extensive past medical history including hypertension hyperlipidemia, history of CVA with residual expressive aphasia, rectal cancer s/p chemo and dementia who presented with rectal bleeding. She resides in a
dementia unit at [facility]. Developed diarrhea stool with demetrio blood per EMS and was brought to ER for further care.
Does not take NSAIDs or drink alcohol. In ER she was vitally stable, maintaining saturations on room air.
Patient has a history of antiphospholipid syndrome for which she is on chronic Coumadin therapy. On arrival her hemoglobin was 3.7 and INR of greater than 8, PT greater than 98.6 seconds, APTT 133 seconds, received 2 units of Kcentra andVitamin K,
which helped to bring INR down to 1. In addition she also received 3 packs of blood now her hemoglobin is 8.9.
Endoscopy and colonoscopy done.
Assessment/plan
1. Acute blood loss anemia secondary to lower GI bleed
Presented with hemoglobin of 3.7 and INR of greater than 8
S/p vitamin K and Kcentra along with blood transfusion
Now hemoglobin improved to 8.9, INR 1, no further bleed overnight
Endoscopy 03/10/2025
Impression: - Normal esophagus.
- No gross lesions in the entire stomach.
- Normal duodenal bulb, first portion of the duodenum
and second portion of the duodenum.
- No specimens collected.
Colonoscopy 03/10/2025
Impression: - Preparation of the colon was inadequate.
- Hemorrhoids found on perianal exam.
- The examined portion of the ileum was normal. No
blood or hematin noted.
- Blood in the rectum, in the sigmoid colon, in the
descending colon and in the transverse colon.
- Congested mucosa in the rectum.
- Erythematous mucosa in the rectum.
- Internal hemorrhoids.
- No specimens collected.
Unclear source of bleed
Given the coagulopathy with an INR of greater than 8, bleeding could have been provoked from otherwise benign appearing ulcer
Advance diet as tolerated
risk versus benefit discussed with the spouse, heme-onc evaluating for alternative to Coumadin for antiphospholipid syndrome
In case of resuming Coumadin, strict monitoring of INR
Heparin held as platelet counts below 50
2. Chronic anticoagulation for lupus antiphospholipid syndrome
Patient requires chronic Coumadin therapy
Rectal bleeding most likely secondary to inappropriate INR monitoring, secondary to warfarin use
Risk versus benefit discussed with the family, heme-onc following for appropriate anticoagulation over discharge
Records requested from [facility] regarding her rectal cancer treatment
3. Dementia
Patient has baseline dementia
Resides at [facility]
other med problems:
-CVA
-vascular dementia
-hx hip/knee surgery
-loop recorder
DVT prophylaxis- sequential compression devices
CODE STATUS full code
Anticipated Discharge: 24 - 48 hours
Subjective/Interval History
-
Date of Service: March 11, 2025
Patient very quiet and communicates with 1 word, reports no issues denies abdominal pain or any blood in stools
Oriented to name and place
Objective Data
-
Labs:
Laboratory Results
03/11/25 03/11/25
10:03 17:00
WBC 9.1
Hgb 8.4 L
Hct 23.6 L
Plt Count 42 L D
APTT 65.7 H Pending
Sodium 137
Potassium 2.4 L* D
Chloride 109 H
Carbon Dioxide 22
BUN 14
Creatinine 0.9
Glucose 102 H
Calcium 7.7 L
Total Bilirubin 1.3
AST 25
ALT 14
Alkaline Phosphatase 66
Vital Signs:
Vital Signs
Temp Pulse Resp BP Pulse Ox
98.5 F 77 17 139/83 97
03/11/25 11:00 03/11/25 11:00 03/11/25 11:00 03/11/25 11:00 03/11/25 11:00
I&O
03/10/25 03/11/25 03/12/25
06:59 06:59 06:59
Intake Total 1500 / 1652.5 960.0 / 960.0
Output Total 825 / 825
Balance 1500 / 1652.5 135.0 / 135.0
Review of Systems
-
All other systems: Reviewed and negative
Physical Exam
-
General: No Apparent Distress
HEENT: Moist Mucous Membranes
Respiratory: Clear to Auscultation; Negative Wheezes, Rales or Rhonchi
Cardiac: Regular Rhythm and S1/S2
GI: Soft, Nontender, Nondistended and Normal Bowel Sounds
Musculoskeletal: No Clubbing, No Cyanosis and No Edema
Skin: Warm, Dry and Other (Stage I pressure injury on right heel, stage 2 pressure injury on her left lateral ankle )
Neuro: Awake, Oriented and Nonfocal/Grossly Intact
Psych: Calm
[2025-03-11] MEDS: COUMADIN 3 MG PO (17:43)
[2025-03-11 17:58] LABS: Transferrin 163 mg/dL (200-360)
[2025-03-11 19:50] VITALS: BP 140/82
[2025-03-11 20:13] LABS: Blood Urea Nitrogen 14 mg/dl (7-17); Carbon Dioxide 24 mmol/L (22-30); Chloride 108 mmol/L (98-107); Estimated Creatinine Clearance 45 ml/min; Glucose 106 mg/dl (70-99); Potassium 3.3 mmol/L (3.5-5.1); Sodium 134 mmol/L (135-145); eGFR > 60.00
[2025-03-11 23:35] VITALS: BP 148/79
[2025-03-12] MEDS: KCL 40 MEQ PO (00:12)
[2025-03-12 03:10] VITALS: BP 146/91
[2025-03-12 07:21] LABS: INR 1.18; PT 15.5 Sec (11.4-14.6)
[2025-03-12 07:25] VITALS: BP 155/96
[2025-03-12 07:28] LABS: % Basophils 0.1 % (0-2); % Eosinophils 0.4 % (0-6); % Immature Granulocytes 1.6 % (0-0.5); % Monocytes 5.8 % (1.7-9.3); % Neutrophils 85.1 % (42.2-75.2); Absolute Immature Granulocytes 0.1 10^3/uL (0-0.05); Absolute Lymphocytes 0.5 10^3/uL (1.2-3.4); Absolute Monocytes 0.4 10^3/uL (0.1-0.6); Absolute Neutrophils 5.9 10^3/uL (1.4-6.5); Hematocrit 23.9 % (37.0-47.0); Hemoglobin 8.4 g/dL (12.0-16.0); Mean Corp Hgb Conc. 35.1 g/dL (33.0-37.0); Mean Corpuscular Hgb 29.1 pg (27.0-31.0); Mean Corpuscular Volume 82.7 fL (81.0-99.0); Nucleated Red Blood Cells % 0.3 %; Platelet Count 28 10^3/uL (130-400); Red Blood Cell Count 2.89 10^6/uL (4.20-5.40); Red Cell Dist. Width 15.9 % (11.5-14.5); White Blood Cell Count 6.9 10^3/uL (4.8-10.8)
[2025-03-12 07:43] LABS: Blood Urea Nitrogen 14 mg/dl (7-17); Calcium 8.3 mg/dl (8.4-10.2); Carbon Dioxide 23 mmol/L (22-30); Chloride 111 mmol/L (98-107); Estimated Creatinine Clearance 41 ml/min; Glucose 97 mg/dl (70-99); Magnesium 1.6 mg/dl (1.6-2.3); Potassium 4.1 mmol/L (3.5-5.1); Sodium 137 mmol/L (135-145); eGFR > 60.00
--- NOTE | 2025-03-12 07:52 | W.PN.ONC2 ---
Today's Communication / Plan
-
Continue to hold heparin with following platelet count.
Timing of platelet count drop too soon for HIT.
Always challenging balancing treatment of bleeding and thrombosis simultaneously. Luckily no current thrombosis despite high risk antiphospholipid antibody syndrome. HgB stable.
Impression
Impression
Coagulopathy
Rectal bleeding in setting of supratherapeutic INR (blood in colon on colonoscopy)
Antiphospholipid syndrome (triple positive), w/ h/o thrombosis/CVAs
Thrombocytopenia, progressive
Plan
Plan
With platelet count < 50, continue to hold heparin
Monitor CBC daily, monitor for bleeding
Etiology of thrombocytopenia unclear - can be seen in APL syndrome, also dilutional after multiple PRBC transfusions.
Unlikely HIT with rapid timing of thrombocytopenia. 4Ts score = 3 (<5% likelihood HIT)
With triple positive APL syndrome, should be back on a/c when able. Coumadin is ideal if able to better monitor INR at [facility].
Subjective/Objective
Chief Complaint
ACS heme-onc follow-up
Subjective
Poor historian. Mostly nonverbal but does answer simple questions. Denies bleeding but history unreliable.
Vital Signs:
Vital Signs
Temp Pulse Resp BP Pulse Ox
98.3 F 76 18 146/91 97
03/12/25 03:10 03/12/25 03:10 03/12/25 03:10 03/12/25 03:10 03/12/25 03:10
Lab Results:
Laboratory Data
WBC 6.9 10^3/uL (4.8-10.8) 03/12/25 06:31
Hgb 8.4 g/dL (12.0-16.0) L 03/12/25 06:31
Plt Count 28 10^3/uL (130-400) L* D 03/12/25 06:31
PT 15.5 Sec (11.4-14.6) H 03/12/25 06:31
INR 1.18 03/12/25 06:31
APTT Cancelled 03/11/25 17:00
eGFR > 60.00 03/12/25 06:31
Physical Exam
Cardiology: S1 and S2
Pulmonary: Clear
GI: Soft
Extremities: No C/C/E
[2025-03-12] MEDS: PROTONIX 40 MG PO ×2 (08:05→20:12)
[2025-03-12 10:17] LABS: Band Neutrophils 0 % (0-3); Lymphocytes 5 % (20-51); Metamyelocytes 1 % (-); Monocytes 7 % (2-9); Normal RBC Morphology No; Nucleated Red Blood Cells 1 (-); Platelets Checked Yes; Segmented Neutrophils 87 % (42-75)
[2025-03-12 10:19] LABS: Anisocytosis 1+; Hypochromasia 1+; Polychromasia 1+
[2025-03-12 10:21] LABS: Acanthocytes FEW; Basophilic Stippling FEW; Ovalocytes FEW
[2025-03-12 10:22] LABS: Total Cells Counted 100
[2025-03-12 11:25] VITALS: BP 146/82
--- NOTE | 2025-03-12 11:39 | W.PN.GI.CBS2 ---
Today's Communication / Plan
-
GI signing off pls call with changes in clinical status, monitor for si/sx of bleeding
Assessment / Plan
-
69-year-old female with history of CVA, vascular dementia, lupus antiphospholipid syndrome on Coumadin presenting with rectal bleeding and melena with INR greater than 8 and hemoglobin 3.7. She underwent an endoscopy with Dr. Light 03/10 which was
negative and also did a colonoscopy which showed blood in the colon. She is now having brown stools. She was started on low residue diet.
We started her heparin 03/10 given her history of antiphospholipid syndrome but her platelets dramatically dropped. Heparin now off. Hematology following re: thrombocytopenia. Coumadin restarted.
If has overt significant bleeding event from CTA, if recurrent drop in hemoglobin or signs of bleeding may need full prep for colonoscopy and then potential capsule.
At this juncture, GI will sign off pls call with ?s or changes in clinical status
Subjective
Subjective
Date of Service: March 12, 2025
No further bleeding
Restarted on coumadin
Pt with no GI complaints
Objective
Data Reviewed
Laboratory Data:
Laboratory Results
03/12/25 06:31
03/12/25 06:31
Laboratory Results
PT 15.5 Sec (11.4-14.6) H 03/12/25 06:31
INR 1.18 03/12/25 06:31
APTT Cancelled 03/11/25 17:00
Phosphorus 3.4 mg/dl (2.5-4.5) 03/10/25 01:17
Magnesium 1.6 mg/dl (1.6-2.3) 03/12/25 06:31
Total Bilirubin 1.3 mg/dl (0.2-1.3) 03/11/25 10:03
AST 25 U/L (14-36) 03/11/25 10:03
ALT 14 U/L (0-35) 03/11/25 10:03
Alkaline Phosphatase 66 U/L (38-126) 03/11/25 10:03
Lipase 76 U/L (23-300) 03/09/25 10:49
Vital Signs and I&O:
Vital Signs
Temp Pulse Resp BP Pulse Ox
98.5 F 78 18 146/82 99
03/12/25 11:25 03/12/25 11:25 03/12/25 11:25 03/12/25 11:25 03/12/25 11:25
I&O
03/11/25 03/12/25 03/13/25
06:59 06:59 06:59
Intake Total 960.0 / 960.0 282 / 282 120 / 120
Output Total 825 / 825
Balance 135.0 / 135.0 282 / 282 120 / 120
Physical Exam
Physical Exam
GI: Non Distended and Non Tender
--- NOTE | 2025-03-12 14:54 | W.PN.HOSP.TC ---
Addendum entered and electronically signed by Mark Major MD 03/13/25 14:20:
Acute blood loss anemia secondary to upper GI bleeding with a s/p 3 units PRBC supratherapeutic INR
Hgb stable
S/p 3 units PRBC
S/p Kcentra and vitamin K
Hold Coumadin
PPI
GI s/p EGD/C-Scope EGD findings without acute pathology noted. C-scope findings with old blood and congested mucosa of the rectum with some erythema. Internal hemorrhoids.
If noted more bleeding hemodynamically unstable obtain stat stat CT GI bleed study and start pressor support if needed along with blood transfusion
TODD Resovled
Lupus anticoagulant
Resume Coumadin, daily INR, goal 2-3
Consult hematology for recommendation in terms along term anticoagulation as she has had life-threatening bleeding and presented with hemoglobin of 3.7
-Post bidirectional scope GI recommended to initiate heparin drip
Anxiety/depression
Continue olanzapine and sertraline
Hypothyroidism
Continue levothyroxine
Thrombocytopenia�acute
Did not receive heparin products prior to drop from the low 100 to the 60s. Started on heparin drip while platelets were in the 60s now 42. Therfore, unlikley HIT.
Will go ahead and hold heparin drip until platelet count improves to greater than 50. Hematology following
Hypokalemia replete
Original Note:
Today's Communication/Plan
-
Continue to monitor platelet count
Continue to monitor INR
Watch out for bleeding
Assessment / Plan
Assessment / Plan
Impression
Patient is a 69-year-old female with extensive past medical history including hypertension hyperlipidemia, history of CVA with residual expressive aphasia, rectal cancer s/p chemo and dementia who presented with rectal bleeding. She resides in a
dementia unit at [facility]. Developed diarrhea stool with demetrio blood per EMS and was brought to ER for further care.
Does not take NSAIDs or drink alcohol. In ER she was vitally stable, maintaining saturations on room air.
Patient has a history of antiphospholipid syndrome for which she is on chronic Coumadin therapy. On arrival her hemoglobin was 3.7 and INR of greater than 8, PT greater than 98.6 seconds, APTT 133 seconds, received 2 units of Kcentra andVitamin K,
which helped to bring INR down to 1. In addition she also received 3 packs of blood now her hemoglobin is 8.9.
Endoscopy and colonoscopy done.
Assessment/plan
1.Acute thrombocytopenia
Unclear etiology
Could be dilutional secondary to multiple blood transfusions
Given timing of heparin, less likely to be HIT
Possible thrombocytopenia with antiphospholipid syndrome, but patient has never had platelet counts below 50
Patient required bridging of heparin and warfarin, given the platelet counts,heparin is on hold
Heme-onc is following-appreciate recommendations-continue warfarin for now without heparin-continue to monitor platelet counts-can resume heparin once platelet count above 50
2. Acute blood loss anemia secondary to lower GI bleed
Presented with hemoglobin of 3.7 and INR of greater than 8
S/p vitamin K and Kcentra along with blood transfusion
Now hemoglobin improved to 8.9, INR 1, no further bleed overnight
Endoscopy 03/10/2025
Impression: - Normal esophagus.
- No gross lesions in the entire stomach.
- Normal duodenal bulb, first portion of the duodenum
and second portion of the duodenum.
- No specimens collected.
Colonoscopy 03/10/2025
Impression: - Preparation of the colon was inadequate.
- Hemorrhoids found on perianal exam.
- The examined portion of the ileum was normal. No
blood or hematin noted.
- Blood in the rectum, in the sigmoid colon, in the
descending colon and in the transverse colon.
- Congested mucosa in the rectum.
- Erythematous mucosa in the rectum.
- Internal hemorrhoids.
- No specimens collected.
Unclear source of bleed
Given the coagulopathy with an INR of greater than 8, bleeding could have been provoked from otherwise benign appearing ulcer
Advance diet as tolerated
May need full prep colonoscopy and then potential capsule, if hemoglobin continues to drop or if there are overt signs of bleeding.
risk versus benefit discussed with the spouse, heme-onc evaluating for alternative to Coumadin for antiphospholipid syndrome
In case of resuming Coumadin, strict monitoring of INR
Heparin held as platelet counts below 50
Challenging situation- Given low platelet counts, requirement of heparin bridging and subtherapeutic INR
3. Chronic anticoagulation for lupus antiphospholipid syndrome
Patient requires chronic Coumadin therapy
Rectal bleeding most likely secondary to inappropriate INR monitoring, secondary to warfarin use
Risk versus benefit discussed with the family, heme-onc following for appropriate anticoagulation over discharge
Records requested from [facility] regarding her rectal cancer treatment
4. Dementia
Patient has baseline dementia
Resides at [facility]
other med problems:
-CVA
-vascular dementia
-hx hip/knee surgery
-loop recorder
DVT prophylaxis- sequential compression devices
CODE STATUS full code
Anticipated Discharge: 24 - 48 hours
Subjective/Interval History
-
Date of Service: March 12, 2025
Patient denies any complaints, mostly remains quite in response with 1 or 2 words, has underlying dementia
Objective Data
-
Labs:
Laboratory Results
03/12/25
06:31
WBC 6.9
Hgb 8.4 L
Hct 23.9 L
Plt Count 28 L* D
PT 15.5 H
INR 1.18
Sodium 137
Potassium 4.1
Chloride 111 H
Carbon Dioxide 23
BUN 14
Creatinine 1.0
Glucose 97
Calcium 8.3 L
Vital Signs:
Vital Signs
Temp Pulse Resp BP Pulse Ox
98.5 F 78 18 146/82 99
03/12/25 11:25 03/12/25 11:25 03/12/25 11:25 03/12/25 11:25 03/12/25 11:25
I&O
03/11/25 03/12/25 03/13/25
06:59 06:59 06:59
Intake Total 960.0 / 960.0 282 / 282 120 / 120
Output Total 825 / 825
Balance 135.0 / 135.0 282 / 282 120 / 120
Review of Systems
-
All other systems: Reviewed and negative
Physical Exam
-
General: No Apparent Distress, Cachectic and Other (Flat affect, does not speak much, responds with 1 to 2 words)
HEENT: Moist Mucous Membranes and Anicteric
Respiratory: Clear to Auscultation; Negative Wheezes, Rales or Rhonchi
Cardiac: Regular Rhythm and S1/S2
GI: Soft, Nontender, Nondistended and Normal Bowel Sounds
Musculoskeletal: No Clubbing, No Cyanosis and No Edema
Skin: Warm, Dry and Other (Stage I pressure injury on right heel, stage 2 pressure injury on her left lateral ankle)
Neuro: Awake and Oriented (To name only)
Psych: Calm and Confused (Because of underlying dementia)
[2025-03-12 15:36] VITALS: BP 120/77
[2025-03-12] MEDS: COUMADIN 3 MG PO (17:21)
[2025-03-12 19:27] VITALS: BP 142/86
[2025-03-12 23:46] VITALS: BP 156/108
[2025-03-13] VITALS (9 sets, daily range): BP systolic 145–188; BP diastolic 91–106; PULSE 81; O2SAT 98
--- NOTE | 2025-03-13 07:42 | W.PN.HOSP.TC ---
Addendum entered and electronically signed by Mark Major MD 03/13/25 14:21:
Acute blood loss anemia secondary to upper GI bleeding with a s/p 3 units PRBC supratherapeutic INR
Hgb stable
S/p 3 units PRBC
S/p Kcentra and vitamin K
Hold Coumadin
PPI
GI s/p EGD/C-Scope EGD findings without acute pathology noted. C-scope findings with old blood and congested mucosa of the rectum with some erythema. Internal hemorrhoids.
If noted more bleeding hemodynamically unstable obtain stat stat CT GI bleed study and start pressor support if needed along with blood transfusion
TODD Resovled
Lupus anticoagulant
Resume Coumadin, daily INR, goal 2-3
Consult hematology for recommendation in terms along term anticoagulation as she has had life-threatening bleeding and presented with hemoglobin of 3.7
-Post bidirectional scope GI recommended to initiate heparin drip
Anxiety/depression
Continue olanzapine and sertraline
Hypothyroidism
Continue levothyroxine
Thrombocytopenia�acute
Did not receive heparin products prior to drop from the low 100 to the 60s. Started on heparin drip while platelets were in the 60s now 42. Therfore, unlikley HIT.
Will go ahead and hold heparin drip until platelet count improves to greater than 50. Hematology following
Hypokalemia replete
Original Note:
Today's Communication/Plan
-
Follow INR and platelet count
Continue warfarin, resume heparin once platelet count greater than 50
Heme-onc following, follow recommendations
Assessment / Plan
Assessment / Plan
Impression
Patient is a 69-year-old female with extensive past medical history including hypertension hyperlipidemia, history of CVA with residual expressive aphasia, rectal cancer s/p chemo and dementia who presented with rectal bleeding. She resides in a
dementia unit at [facility]. Developed diarrhea stool with demetrio blood per EMS and was brought to ER for further care.
Does not take NSAIDs or drink alcohol. In ER she was vitally stable, maintaining saturations on room air.
Patient has a history of antiphospholipid syndrome for which she is on chronic Coumadin therapy. On arrival her hemoglobin was 3.7 and INR of greater than 8, PT greater than 98.6 seconds, APTT 133 seconds, received 2 units of Kcentra andVitamin K,
which helped to bring INR down to 1. In addition she also received 3 packs of blood now her hemoglobin is 8.9.
Endoscopy and colonoscopy done.
Assessment/plan
1.Acute thrombocytopenia
Unclear etiology
Could be dilutional secondary to multiple blood transfusions
Given timing of heparin, less likely to be HIT
Possible thrombocytopenia with antiphospholipid syndrome, but patient has never had platelet counts below 50
Patient required bridging of heparin and warfarin, given the platelet counts,heparin is on hold
Heme-onc is following-appreciate recommendations-continue warfarin for now without heparin-continue to monitor platelet counts-can resume heparin once platelet count above 50
Progressive thrombocytopenia, platelet count dropped to 26, heme-onc following, updated them, INR 1.5
Continue warfarin, continue to monitor platelet count and INR
2. Acute blood loss anemia secondary to lower GI bleed
Presented with hemoglobin of 3.7 and INR of greater than 8
S/p vitamin K and Kcentra along with blood transfusion
Now hemoglobin improved to 9.1, INR 1.5, no further bleed overnight
Endoscopy 03/10/2025
Impression: - Normal esophagus.
- No gross lesions in the entire stomach.
- Normal duodenal bulb, first portion of the duodenum
and second portion of the duodenum.
- No specimens collected.
Colonoscopy 03/10/2025
Impression: - Preparation of the colon was inadequate.
- Hemorrhoids found on perianal exam.
- The examined portion of the ileum was normal. No
blood or hematin noted.
- Blood in the rectum, in the sigmoid colon, in the
descending colon and in the transverse colon.
- Congested mucosa in the rectum.
- Erythematous mucosa in the rectum.
- Internal hemorrhoids.
- No specimens collected.
Unclear source of bleed
Given the coagulopathy with an INR of greater than 8, bleeding could have been provoked from otherwise benign appearing ulcer
Advance diet as tolerated
May need full prep colonoscopy and then potential capsule, if hemoglobin continues to drop or if there are overt signs of bleeding. GI signed off for now
risk versus benefit discussed with the spouse, heme-onc evaluating for alternative to Coumadin for antiphospholipid syndrome
In case of resuming Coumadin, strict monitoring of INR
Heparin held as platelet counts below 50
Challenging situation- Given low platelet counts, requirement of heparin bridging and subtherapeutic INR
3. Chronic anticoagulation for lupus antiphospholipid syndrome
Patient requires chronic Coumadin therapy
Rectal bleeding most likely secondary to inappropriate INR monitoring, secondary to warfarin use
Risk versus benefit discussed with the family, heme-onc following for appropriate anticoagulation over discharge
Records requested from [facility] regarding her rectal cancer treatment
4. Dementia
Patient has baseline dementia
Resides at [facility]
other med problems:
-CVA
-vascular dementia
-hx hip/knee surgery
-loop recorder
DVT prophylaxis- sequential compression devices
CODE STATUS full code
Anticipated Discharge: 24 - 48 hours
Subjective/Interval History
-
Date of Service: March 13, 2025
No active issues, patient denies any complaints
No blood in stools, no obvious source of bleed
Objective Data
-
Labs:
Laboratory Results
03/13/25
07:40
WBC Pending
Hgb Pending
Hct Pending
Plt Count Pending
PT Pending
INR Pending
Sodium Pending
Potassium Pending
Chloride Pending
Carbon Dioxide Pending
BUN Pending
Creatinine Pending
Glucose Pending
Calcium Pending
Vital Signs:
Vital Signs
Temp Pulse Resp BP Pulse Ox
99.0 F 81 18 152/93 98
03/13/25 03:41 03/13/25 03:41 03/13/25 03:41 03/13/25 03:41 03/13/25 03:41
I&O
03/12/25 03/13/25 03/14/25
06:59 06:59 06:59
Intake Total 282 / 282 840 / 840
Balance 282 / 282 840 / 840
Review of Systems
-
All other systems: Reviewed and negative
Physical Exam
-
General: No Apparent Distress, Cachectic and Other (Fragile and weak, flat affect, speech limited to 1 or 2 words)
HEENT: Moist Mucous Membranes and Anicteric
Respiratory: Clear to Auscultation; Negative Wheezes, Rales or Rhonchi
Cardiac: Regular Rhythm and S1/S2
GI: Soft, Nontender, Nondistended and Normal Bowel Sounds
Musculoskeletal: No Clubbing, No Cyanosis and No Edema
Skin: Warm, Dry and Other (Stage I pressure injury on right heel, stage II pressure injury on her left lateral ankle)
Neuro: Awake and Other (Knows her name, does not know the year or where she is at the moment )
Psych: Calm
[2025-03-13 08:01] LABS: % Basophils 0.1 % (0-2); % Eosinophils 0.4 % (0-6); % Immature Granulocytes 1.4 % (0-0.5); % Lymphocytes 4.2 % (20.5-51.1); % Monocytes 5.7 % (1.7-9.3); % Neutrophils 88.2 % (42.2-75.2); Absolute Immature Granulocytes 0.1 10^3/uL (0-0.05); Absolute Lymphocytes 0.3 10^3/uL (1.2-3.4); Absolute Monocytes 0.5 10^3/uL (0.1-0.6); Absolute Neutrophils 6.9 10^3/uL (1.4-6.5); Hemoglobin 9.7 g/dL (12.0-16.0); Mean Corp Hgb Conc. 34.6 g/dL (33.0-37.0); Mean Corpuscular Volume 83.6 fL (81.0-99.0); Nucleated Red Blood Cells % 0.3 %; Platelet Count 26 10^3/uL (130-400); Red Blood Cell Count 3.35 10^6/uL (4.20-5.40); White Blood Cell Count 7.8 10^3/uL (4.8-10.8)
[2025-03-13 08:15] LABS: INR 1.51; PT 18.7 Sec (11.4-14.6)
[2025-03-13] MEDS: PROTONIX 40 MG PO ×2 (08:34→19:46)
[2025-03-13 09:15] LABS: Blood Urea Nitrogen 14 mg/dl (7-17); Calcium 8.6 mg/dl (8.4-10.2); Carbon Dioxide 24 mmol/L (22-30); Chloride 105 mmol/L (98-107); Estimated Creatinine Clearance 41 ml/min; Glucose 113 mg/dl (70-99); Magnesium 1.5 mg/dl (1.6-2.3); Potassium 3.9 mmol/L (3.5-5.1); Sodium 134 mmol/L (135-145); eGFR > 60.00
--- NOTE | 2025-03-13 10:28 | W.PN.ONC2 ---
Today's Communication / Plan
-
.
Impression
Impression
p/w rectal bleeding, Hgb 3.7g/dL, warfarin coagulopathy
s/p vitamin K and Kcentra 03/09 with INR >8 to 1.3. Heparin resumed 03/10, warfarin 03/11, however, due to worsening thrombocytopenia heparin stopped and last dose of warfarin was on 03/12
s/p neg EGD to 2nd portion of duodenum neg and colon with blood throughout and poor prep
ABLA s/p 3U PRBC on 03/09, Hgb stable 9.7g/dL
Antiphospholipid syndrome (triple positive), w/ h/o thrombosis/CVAs
Thrombocytopenia, progressive with nml platelets on admission ->26,000 today. no B12 or folate deficiency
Plan
Plan
With platelet count < 50, hold anticoagulation, NSAIDs, antiplatelet
Etiology of thrombocytopenia unclear - can be seen in APL syndrome
monitor for infection
Unlikely HIT with rapid timing of thrombocytopenia. 4Ts score = 3 (<5% likelihood HIT), however, will collect out of an abundance of caution
smear review
check DIC panel
IV iron for ferritin <100 with anemia
daily CBC
With triple positive APL syndrome, should be back on a/c when able. Coumadin is ideal if able to better monitor INR at [facility].
Subjective/Objective
Subjective
Vital Signs:
Vital Signs
Temp Pulse Resp BP Pulse Ox
98.5 F 78 16 162/96 99
03/13/25 07:31 03/13/25 07:31 03/13/25 07:31 03/13/25 07:31 03/13/25 07:31
Lab Results:
Laboratory Data
WBC 7.8 10^3/uL (4.8-10.8) 03/13/25 07:40
Hgb 9.7 g/dL (12.0-16.0) L 03/13/25 07:40
Plt Count 26 10^3/uL (130-400) L* 03/13/25 07:40
PT 18.7 Sec (11.4-14.6) H 03/13/25 07:40
INR 1.51 03/13/25 07:40
APTT Cancelled 03/11/25 17:00
eGFR > 60.00 03/13/25 07:40
Orders
Orders
Orders From Last 24 Hours
03/14/25 06:00
B12 [Vitamin B12] IN AM
D-Dimer IN AM
HIT [Heparin Associated Platelet Ab] [S] IN AM
INR [Prothrombin Time] IN AM
03/15/25 06:00
INR [Prothrombin Time] IN AM
03/16/25 06:00
INR [Prothrombin Time] IN AM
03/17/25 06:00
INR [Prothrombin Time] IN AM
03/18/25 06:00
INR [Prothrombin Time] IN AM
[2025-03-13] MEDS: FERRLECIT 110 MG IV (15:03)
[2025-03-14] VITALS (7 sets, daily range): BP systolic 136–163; BP diastolic 62–105; BMI 17.9
[2025-03-14 07:20] LABS: Hematocrit 28.3 % (37.0-47.0); Hemoglobin 9.5 g/dL (12.0-16.0); Mean Corp Hgb Conc. 33.6 g/dL (33.0-37.0); Mean Corpuscular Hgb 28.2 pg (27.0-31.0); Mean Platelet Volume 9.9 fL (7.4-10.4); Platelet Count 23 10^3/uL (130-400); Red Blood Cell Count 3.37 10^6/uL (4.20-5.40); Red Cell Dist. Width 15.9 % (11.5-14.5); White Blood Cell Count 10.2 10^3/uL (4.8-10.8)
[2025-03-14 07:22] LABS: Fibrinogen 610 MG/DL (199-459); INR 1.76
[2025-03-14 07:32] LABS: D-Dimer 4.33 ug/mlFEU (0.00-0.50)
[2025-03-14] MEDS: PROTONIX 40 MG PO ×2 (08:55→19:32)
[2025-03-14 09:02] LABS: Blood Urea Nitrogen 17 mg/dl (7-17); Calcium 8.5 mg/dl (8.4-10.2); Carbon Dioxide 22 mmol/L (22-30); Chloride 106 mmol/L (98-107); Estimated Creatinine Clearance 37 ml/min; Glucose 112 mg/dl (70-99); Potassium 3.7 mmol/L (3.5-5.1); Sodium 133 mmol/L (135-145); eGFR 53.72
--- NOTE | 2025-03-14 09:02 | W.PN.ONC2 ---
Documented by User: KAMAR Duncan 03/14/25 12:14
Today's Communication / Plan
-
.
Impression
Impression
p/w rectal bleeding, Hgb 3.7g/dL, warfarin coagulopathy
s/p vitamin K and Kcentra 03/09 with INR >8 to 1.3. Heparin resumed 03/10, warfarin 03/11, however, due to worsening thrombocytopenia heparin stopped and last dose of warfarin was on 03/12
s/p neg EGD to 2nd portion of duodenum neg and colon with blood throughout and poor prep
ABLA/SAGE s/p 3U PRBC on 03/09, Hgb stable 9.5g/dL
Antiphospholipid syndrome (triple positive), w/ h/o thrombosis/CVAs
Thrombocytopenia, progressive with nml platelets on admission ->23,000 today. no B12 or folate deficiency. Dr. Mitchell's review of peripheral smear 03/13 no schistocytes. No evidence of acute DIC with elevated fibrinogen
Plan
Plan
Etiology of thrombocytopenia unclear, however, with intermediate 4T score, CT head today negative for bleeding, resolution of rectal bleeding, stable Hgb, and triple positive APLS with hx thrombosis, I will start Argatroban empirically while
awaiting HIT results due to very high risk of catastrophic thrombosis with close monitoring for bleeding and serial CBC
CBC BID, can collect with labs needed on argatroban protocol d/w nursing
monitor for infection
monitor for bleeding
IV iron for ferritin <100 with anemia
Subjective/Objective
Subjective
s/p stat CT due to concern for neurological changes
denies overt bleeding
Vital Signs:
Vital Signs
Temp Pulse Resp BP Pulse Ox
97.8 F 90 20 162/62 98
03/14/25 07:45 03/14/25 07:45 03/14/25 07:45 03/14/25 07:45 03/14/25 07:45
Lab Results:
Laboratory Data
WBC 10.2 10^3/uL (4.8-10.8) 03/14/25 06:46
Hgb 9.5 g/dL (12.0-16.0) L 03/14/25 06:46
Plt Count 23 10^3/uL (130-400) L* 03/14/25 06:46
PT 21.0 Sec (11.4-14.6) H 03/14/25 06:46
INR 1.76 03/14/25 06:46
APTT Cancelled 03/11/25 17:00
eGFR Cancelled 03/14/25 06:46
Physical Exam
HEENT: Moist Mucous Membranes; No Jaundice
Cardiology: Normal Sinus Rhythm
Pulmonary: Clear
GI: Soft
Extremities: Pulses Present
Neuro: Other (left hemiparesis. Lethargic. Able to state name. unwilling or unable to follow commands)
Orders
Orders
Orders From Last 24 Hours
03/13/25 14:00
Ferric Gluconate [Ferrlecit] 125 mg 0.9% Sodium Chloride 100 ml [Nss] 100 ml IV DAILY@1400
03/14/25 06:46
D-Dimer IN AM
Fibrinogen IN AM
INR [Prothrombin Time] IN AM
03/15/25 06:00
INR [Prothrombin Time] IN AM
03/16/25 06:00
INR [Prothrombin Time] IN AM
03/17/25 06:00
INR [Prothrombin Time] IN AM
03/18/25 06:00
INR [Prothrombin Time] IN AM

Documented by User: Abdi Hayden MD 03/14/25 13:09
Plan
Plan
Etiology of thrombocytopenia unclear, however, with intermediate 4T score, CT head today negative for bleeding, resolution of rectal bleeding, stable Hgb, and triple positive APLS with hx thrombosis, I will start Argatroban empirically while
awaiting HIT results due to very high risk of catastrophic thrombosis with close monitoring for bleeding and serial CBC
CBC BID, can collect with labs needed on argatroban protocol d/w nursing
monitor for infection
monitor for bleeding
IV iron for ferritin <100 with anemia
Agree with above assessment. I can find no other likely explanation for her dramatic drop in her platelet count besides her exposure to heparin. She is at great risk for spontaneous arterial and venous thromboses. We will begin argatroban.
Assuming that her platelet count begins to rise in the next several days, and she has no bleeding, she could be transitioned to warfarin.
--- NOTE | 2025-03-14 09:16 | W.PN.HOSP.TC ---
Addendum entered and electronically signed by Mark Major MD 03/14/25 13:52:
Facial droop worsening, softly spoken
Scleral Anicteric
MMM
No JVD
CTABL
RRR, S1/S2
Soft, NT, ND, BS+
Warm, Dry
Left upper extremity contracted
Left lower extremity with some ecchymosis associated around the knee effusion/swelling
AA oriented x 1-2
Calm
Acute blood loss anemia secondary to upper GI bleeding with a s/p 3 units PRBC supratherapeutic INR
Hgb stable
S/p 3 units PRBC
S/p Kcentra and vitamin K
Hold Coumadin
PPI
GI s/p EGD/C-Scope EGD findings without acute pathology noted. C-scope findings with old blood and congested mucosa of the rectum with some erythema. Internal hemorrhoids.
If noted more bleeding hemodynamically unstable obtain stat stat CT GI bleed study and start pressor support if needed along with blood transfusion
TODD Resovled
Lupus anticoagulant
Resume Coumadin, daily INR, goal 2-3
Consult hematology for recommendation in terms along term anticoagulation as she has had life-threatening bleeding and presented with hemoglobin of 3.7
-Post bidirectional scope GI recommended to initiate heparin drip
Anxiety/depression
Continue olanzapine and sertraline
Hypothyroidism
Continue levothyroxine
Thrombocytopenia�acute
Did not receive heparin products prior to drop from the low 100 to the 60s. Started on heparin drip while platelets were in the 60s now 42. Therfore, unlikley HIT. 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 This morning recommended to obtain
HIT profile and to start argatroban
Will go ahead and hold heparin drip until platelet count improves to greater than 50. Hematology following
Will do clinicals concern for DIC at this time as no schistocytes on peripheral smear and fibrinogen in the 600s
Hypokalemia replete
Stroke alert called
Noted this morning worsening facial droop additionally I called her and he told me in the she was not articulating as much as previous this was concerning therefore I called a stroke alert. Updated neurology.
Not a tPA candidate as she has a platelet count in the 23's and presented with significant GI bleed
CTA head and neck along with CT brain without contrast ordered
Original Note:
Today's Communication/Plan
-
Start argatroban as advised by heme-onc
Monitor platelet count and INR
Continue to monitor for any signs of bleed/thrombus
Assessment / Plan
Assessment / Plan
Impression
Patient is a 69-year-old female with extensive past medical history including hypertension hyperlipidemia, history of CVA with residual expressive aphasia, rectal cancer s/p chemo and dementia who presented with rectal bleeding. She resides in a
dementia unit at [facility]. Developed diarrhea stool with demetrio blood per EMS and was brought to ER for further care.
Does not take NSAIDs or drink alcohol. In ER she was vitally stable, maintaining saturations on room air.
Patient has a history of antiphospholipid syndrome for which she is on chronic Coumadin therapy. On arrival her hemoglobin was 3.7 and INR of greater than 8, PT greater than 98.6 seconds, APTT 133 seconds, received 2 units of Kcentra andVitamin K,
which helped to bring INR down to 1. In addition she also received 3 packs of blood now her hemoglobin is 8.9.
Endoscopy and colonoscopy done.
Today platelet counts 23
In addition, her noticed change in mental status and worsening of facial droop and that is why a stroke alert was called
Assessment/plan
# Stroke alert
Worsening of mental status and facial droop, noticed by in the morning
Stroke alert called at 1030
CTA head/neck with perfusion-no LVO, no perfusion mismatch, with the level of symptoms
Head CT, no acute changes
Neurology consult appreciated-most likely toxic metabolic encephalopathy plus recrudescence of prior stroke in setting of acute illness as per neuro
Platelet count 23, not a candidate for TNK
#Acute thrombocytopenia
Progressive thrombocytopenia with platelet count of 23 today
Heme-onc following-appreciate recommendations-Given negative CT head for bleed, resolution of rectal bleeding, stable hemoglobin and, and triple positive APLS with history of thrombosis, heme-onc decided to start argatroban empirically while
awaiting HIT results
Continue to monitor platelet count and INR
Observe for any signs of bleed/thrombus
#Acute blood loss anemia secondary to lower GI bleed
Endoscopy and colonoscopy could not explain the bleed
Vitamin B12 and folate normal
Peripheral smear no schistocytes, no evidence of acute DIC
Hemoglobin stable
#Chronic anticoagulation for lupus antiphospholipid syndrome
Heme-onc following, presented with supratherapeutic INR with warfarin
Unable to bridge with heparin due to low platelet counts
Started on argatroban, awaiting HIT results
Monitor INR
other med problems:
-CVA
-vascular dementia-Resides at [facility]
-hx hip/knee surgery
-loop recorder
DVT prophylaxis- sequential compression devices
CODE STATUS full code
Anticipated Discharge: 24 - 48 hours
Subjective/Interval History
-
Date of Service: March 14, 2025
Patient has baseline dementia and history of CVA in 2021 with residual expressive aphasia
Does not speak much, did not communicate any issues in the morning
noticed changes in mental status and expressed concern
Stroke alert was called around 1030
Objective Data
-
Labs:
Laboratory Results
03/14/25 03/14/25
06:46 08:00
WBC 10.2
Hgb 9.5 L
Hct 28.3 L
Plt Count 23 L*
PT 21.0 H
INR 1.76
Sodium Cancelled 133 L
Potassium Cancelled 3.7
Chloride Cancelled 106
Carbon Dioxide Cancelled 22
BUN Cancelled 17
Creatinine Cancelled 1.1 H
Glucose Cancelled 112 H
Calcium Cancelled 8.5
Vital Signs:
Vital Signs
Temp Pulse Resp BP Pulse Ox
97.8 F 90 20 162/62 98
03/14/25 07:45 03/14/25 07:45 03/14/25 07:45 03/14/25 07:45 03/14/25 07:45
I&O
03/13/25 03/14/25 03/15/25
06:59 06:59 06:59
Intake Total 840 / 840 410 / 410
Balance 840 / 840 410 / 410
Review of Systems
-
Unable to obtain full review of systems at this time due to: Dementia
Physical Exam
-
General: Cachectic and Other (Very weak and fragile, does not speak much )
HEENT: Other (Breathing on room air, left nasolabial flattening)
Respiratory: Clear to Auscultation; Negative Wheezes, Rales or Rhonchi
Cardiac: Regular Rhythm and S1/S2
GI: Soft, Nontender, Nondistended and Normal Bowel Sounds
Musculoskeletal: No Clubbing, No Cyanosis and No Edema
Skin: Warm and Dry
Neuro: Awake and Other (Right upper extremity 4/5, left upper extremity 2/, 5 bilateral lower extremity withdraws to noxious stimuli)
Psych: Confused
[2025-03-14] MEDS: MAGNESIUM SULFATE 50 IV (09:43)
[2025-03-14 10:42] LABS: Glucose - Point of Care 118 mg/dl (70-99)
--- NOTE | 2025-03-14 10:54 | CON.NEURO ---
Neuro Assessment/Plan
Assessment
brain MRI from 04/2023 imgs rev'd, agree area of infarction in right MCA territory involving precentral and postcentral gyrus and insular cortex
Head CT 12/2024 same
Plan
not a TNK candidate due to plt 23
check CTA head/neck with perfusion - no LVO, no perfusion mismatch. with the level of symptoms, I don't believe that a stroke is causing this;
most likely toxic metabolic encephalopathy + recrudescence of prior stroke in the setting of acute illness
Consultation
Order
Date of Consultation: 03/14/25
Requesting Provider: Mark Major
Reason for Consult: stroke alert
Subjective/Objective
Subjective Data
Date of Service: March 14, 2025
LKN 0800, seen by 0830, some slurred speech, now with worsening of facial droop and altered mental status
69-year-old female past medical history of hypertension, hyperlipidemia, prior CVA, vascular dementia, lupus anticoagulant on Coumadin, rectal cancer s/p chemotherapy. hypothyroidism presenting from [facility] for rectal
bleeding. Patient had a large bloody bowel movement this morning. It was bright red but somewhat tarry in some areas. Patient unable to provide additional history due to dementia. She was admitted for severe anemia which stabilized after several
units of transfusion, and elevated INR for which Coumadin was held. During the admission she developed thrombocytopenia, platelets 23
Objective Data
Vital Signs
Temp Pulse Resp BP Pulse Ox
36.7 C 90 20 137/89 98
03/14/25 09:31 03/14/25 07:45 03/14/25 07:45 03/14/25 09:31 03/14/25 07:45
Lab Results
03/14/25 06:46
03/14/25 08:00
PT 21.0 Sec (11.4-14.6) H 03/14/25 06:46
INR 1.76 03/14/25 06:46
APTT Cancelled 03/11/25 17:00
Sodium 133 mmol/L (135-145) L 03/14/25 08:00
Potassium 3.7 mmol/L (3.5-5.1) 03/14/25 08:00
BUN 17 mg/dl (7-17) 03/14/25 08:00
Glucose 112 mg/dl (70-99) H 03/14/25 08:00
Calcium 8.5 mg/dl (8.4-10.2) 03/14/25 08:00
Phosphorus 3.4 mg/dl (2.5-4.5) 03/10/25 01:17
Vitamin B12 359 pg/ml (239-931) 03/10/25 01:17
Patient Allergies
sulfamethoxazole [From Bactrim] Allergy (Verified 11/04/24 07:04)
Rash
trimethoprim [From Bactrim] Allergy (Verified 11/04/24 07:04)
Rash
CVA Assessment
Onset of Stroke Symptoms
Time pt last seen normal is known: Yes
Date last time pt seen normal: 03/14/25
Time last time pt seen normal: 08:00
NIH Stroke Score
Level of Consciousness: 0 - Alert
LOC Questions: 2-Neither correct
LOC Commands: 1-Performs one correctly
Best Horizontal Gaze: 0-Normal
Visual Andrews: 0=Normal, no visual loss
Facial Palsy: 1=Minor paralysis
Motor - Right Arm: 0=No drift 10 seconds
Motor - Left Arm: 2=Partial vs. gravity
Motor - Right Le-None vs. gravity
Motor - Left Le-None vs. gravity
Limb Ataxia: 0-Absent
Sensation: 0-Normal
Best Language: 3-Mute/global aphasia
Dysarthria: 0-Normal
Extinction and Inattention: 0-No abnormality
NIH Total Score:: 15
Tenecteplase Contraindications
Inclusion and Exclusion criteria reviewed: Yes
Reasons for NON-Tx with Thrombolytics ABSOLUTE Exclusions: Platelet count < 100
Physical Exam
-
awake, attends bilaterally, nonverbal, inconsistent following simple commands
blink to threat bilaterally
L nasolabial flattening
RUE antigravity x10 seconds, LUE some antigravity when lifted with spasticity
bilateral LE no antigravity, withdraw to noxious stim more on the right
Medications
-
Active Medications
Generic Name Dose Route Start Last Admin
Trade Name Freq PRN Reason Stop Dose Admin
Acetaminophen 650 mg 03/14/25 04:26
Acetaminophen 325 Mg Tablet PO 04/11/25 04:25
Q4HPRN PRN
headache,mild pain,fever>100.4
Hydralazine HCl 5 mg 03/14/25 09:27
Hydralazine 20 Mg/Ml Vial IV 04/11/25 09:26
Q6HPRN PRN
sbp>160
Ferric Sodium Gluconate 110 mls @ 110 mls/hr 03/13/25 14:00 03/13/25 15:03
Complex 125 mg/ Sodium IV 03/17/25 14:59 110 mls
Chloride DAILY@1400 HERMINIA Administration
Magnesium Sulfate 2 gram in 50 mls @ 25 mls/hr 03/14/25 09:21 03/14/25 09:43
Magnesium Sulfate IV 03/14/25 11:20 50 mls
NOW STA Administration
Pantoprazole Sodium 40 mg 03/10/25 20:00 03/14/25 08:55
Pantoprazole 40 Mg Delayed Release Tablet PO 04/07/25 19:59 40 mg
BID HERMINIA Administration
Polyethylene Glycol 17 grams 03/13/25 07:51
Polyethylene Glycol Powder 17 Grams Packet PO 04/10/25 07:50
DAILYPRN PRN
constipation
Senna/Docusate Sodium 1 tablet 03/13/25 07:52
Docusate W/Senna (Kylie-Colace) Tablet PO 04/10/25 07:51
DAILYPRN PRN
Constipation
Sodium Chloride 0 flush 03/09/25 17:00
Sodium Chloride 0.9% (Flush) Syringe IV 04/06/25 16:59
PER PROTOCOL HERMINIA
Warfarin Sodium 3 mg 03/11/25 18:00 03/12/25 17:21
Warfarin 3 Mg Tablet PO 03/16/25 17:59 3 mg
QPM HERMINIA Administration
Home Medications
�Medication �Instructions �Recorded
alendronate 70 mg tablet 70 mg PO TU OSTEOPOROSIS 09/03/24
olanzapine 5 mg tablet 5 mg PO HS Mental Health/Anxiety 09/03/24
acetaminophen 325 mg tablet 650 mg PO Q6HPRN PRN mild 11/04/24
(Tylenol) pain/fever
ezetimibe 10 mg tablet (Zetia) 10 mg PO DAILY High Cholesterol 11/04/24
famotidine 20 mg tablet (Pepcid) 20 mg PO DAILY Gastrointestinal 11/04/24
Issue
ferrous sulfate 325 mg (65 mg 325 mg PO Q48H Electrolyte 11/04/24
iron) tablet Repletion
magnesium hydroxide 400 mg/5 mL 2,400 mg PO DAILYPRN PRN 11/04/24
oral suspension (Milk of Magnesia) CONSTIPATION
sennosides 8.6 mg tablet (senna) 8.6 mg PO DAILY Constipation 11/04/24
amlodipine 5 mg tablet 5 mg PO DAILY Blood Pressure 03/09/25
atorvastatin 40 mg tablet 40 mg PO DAILY High Cholesterol 03/09/25
levothyroxine 100 mcg tablet 100 mcg PO DAILY Thyroid 03/09/25
sertraline 100 mg tablet 100 mg PO DAILY Mental 03/09/25
Health/Anxiety
tramadol 50 mg tablet 50 mg PO TID Pain 03/09/25
warfarin 2.5 mg tablet 2.5 mg PO QPM Blood Clot 03/09/25
Prevention/Tx
--- NOTE | 2025-03-14 10:57 | RR ---
A Rapid Response was called on this patient, please see Rapid Response form.
MD noticed increase L sided facial droop. Stroke alert and Rapid Response called. EKG, BS, vital signs taken. NIH 24. Hx CVA with residual. 18 guage placed in R FA. Pt taken to CT.
[2025-03-14] MEDS: FERRLECIT 110 MG IV (13:35)
[2025-03-14 13:56] LABS: ALT (SGPT) 29 U/L (0-35); AST (SGOT) 35 U/L (14-36); Albumin 2.9 g/dl (3.5-5.0); Alkaline Phosphatase 81 U/L (38-126); Direct Bilirubin 0.3 mg/dl (0.0-0.4); Total Protein 5.5 g/dl (6.3-8.2)
[2025-03-14 15:09] LABS: INR 2.01; PT 22.9 Sec (11.4-14.6)
[2025-03-14] MEDS: ARGATROBAN 252.5 MG IV (15:44)
[2025-03-14 18:00] LABS: APTT 152.4 Sec (23.4-35.0)
--- NOTE | 2025-03-14 18:07 | PTCARENOTE ---
Baseline PTT 71.0. and KAMAR notified per order. Argatroban gtt initiated at 1.4 ml/hr. Weight used was 47kg. Verified with pharmacist. PTT 2 hours after initiated ordered and obtained. Resulted at 152.4. notified. Infusion on hold per
protocol. PTT ordered for 20:00.
[2025-03-14] MEDS: PROTONIX PO (19:25)
[2025-03-14 21:00] LABS: APTT 116.8 Sec (23.4-35.0)
[2025-03-14] MEDS: APRESOLINE 5 MG IV (22:34)
[2025-03-14 23:08] LABS: APTT 122.2 Sec (23.4-35.0)
[2025-03-15 03:03] LABS: APTT 125.7 Sec (23.4-35.0)
[2025-03-15 03:14] VITALS: BP 160/76
[2025-03-15 06:08] VITALS: BMI 18.1
[2025-03-15 06:56] LABS: PT 25.4 Sec (11.4-14.6)
[2025-03-15 06:58] LABS: APTT 106.2 Sec (23.4-35.0)
[2025-03-15 07:01] VITALS: BP 133/79
--- NOTE | 2025-03-15 07:06 | PTCARENOTE ---
Pharmacy made aware of PTT levels and Argatroban gtt rate adjusted based on pharmacy recommendation and protocol.
--- NOTE | 2025-03-15 07:35 | PTCARENOTE ---
PTT resulted at 106.2. Dose adjusted per protocol, confirmed with pharmacy. Argatroban drip now running at 0.2ml/hr.
[2025-03-15 07:40] LABS: % Basophils 0.2 % (0-2); % Eosinophils 0.8 % (0-6); % Immature Granulocytes 1.4 % (0-0.5); % Lymphocytes 4.1 % (20.5-51.1); % Neutrophils 87.5 % (42.2-75.2); Absolute Eosinophils 0.1 10^3/uL (0-0.7); Absolute Immature Granulocytes 0.1 10^3/uL (0-0.05); Absolute Lymphocytes 0.4 10^3/uL (1.2-3.4); Absolute Monocytes 0.5 10^3/uL (0.1-0.6); Absolute Neutrophils 7.4 10^3/uL (1.4-6.5); Hematocrit 27.2 % (37.0-47.0); Hemoglobin 9.2 g/dL (12.0-16.0); Mean Corp Hgb Conc. 33.8 g/dL (33.0-37.0); Mean Corpuscular Hgb 28.4 pg (27.0-31.0); Mean Platelet Volume 11.5 fL (7.4-10.4); Nucleated Red Blood Cells % 0 %; Platelet Count 42 10^3/uL (130-400); Red Blood Cell Count 3.24 10^6/uL (4.20-5.40); White Blood Cell Count 8.5 10^3/uL (4.8-10.8)
--- NOTE | 2025-03-15 07:41 | W.PN.HOSP.TC ---
Today's Communication/Plan
-
Assessment / Plan
Assessment / Plan
NAD
Scleral Anicteric
MMM
No JVD
CTABL
RRR, S1/S2
Soft, NT, ND, BS+
Warm, Dry
Left upper extremity contracted
Left lower extremity with some ecchymosis associated around the knee effusion/swelling
AA, facial droop appears improved
Calm
Acute blood loss anemia secondary to upper GI bleeding with a s/p 3 units PRBC supratherapeutic INR
Hgb stable
S/p 3 units PRBC
S/p Kcentra and vitamin K
Hold Coumadin
PPI
GI s/p EGD/C-Scope EGD findings without acute pathology noted. C-scope findings with old blood and congested mucosa of the rectum with some erythema. Internal hemorrhoids.
If noted more bleeding hemodynamically unstable obtain stat stat CT GI bleed study and start pressor support if needed along with blood transfusion
TODD Resovled
Lupus anticoagulant
Has not recieved Coumadin since, daily INR, goal 2-3, currently INR trending up as it is 2.3, will need to monitor closely
Consulted hematology for recommendation in terms along term anticoagulation as she has had life-threatening bleeding and presented with hemoglobin of 3.7
-Post bidirectional scope GI recommended to initiate heparin drip
Anxiety/depression
Continue olanzapine and sertraline
Hypothyroidism
Continue levothyroxine
Thrombocytopenia�acute
Hematolgy initally not concerned for HIT, however PLT remained low with a juana of 23, sterefore, hematolgy started agatroban, plt improving slightly, still less then 50k
Will go ahead and hold heparin drip until platelet count improves to greater than 50. Hematology following
Will do clinicals concern for DIC at this time as no schistocytes on peripheral smear and fibrinogen in the 600s
Hypokalemia replete
Hyponatremia encourage po itnake
Anticipated Discharge: > 48 hours
Subjective/Interval History
-
Date of Service: March 15, 2025
seen and examiend.
no acute overnigthe events
Objective Data
-
Labs:
Laboratory Results
03/14/25 03/14/25 03/15/25
20:38 22:48 02:40
WBC
Hgb
Hct
Plt Count
PT
INR
APTT 116.8 H 122.2 H 125.7 H
Sodium
Potassium
Chloride
Carbon Dioxide
BUN
Creatinine
Glucose
Calcium
Total Bilirubin
AST
ALT
Alkaline Phosphatase
03/15/25 03/15/25 03/15/25
06:41 11:30 18:00
WBC 8.5 Pending
Hgb 9.2 L Pending
Hct 27.2 L Pending
Plt Count 42 L D Pending
PT 25.4 H
INR 2.30
APTT 106.2 H Pending
Sodium Pending
Potassium Pending
Chloride Pending
Carbon Dioxide Pending
BUN Pending
Creatinine Pending
Glucose Pending
Calcium Pending
Total Bilirubin Pending
AST Pending
ALT Pending
Alkaline Phosphatase Pending
Vital Signs:
Vital Signs
Temp Pulse Resp BP Pulse Ox
98.3 F 97 20 160/76 98
03/15/25 03:14 03/15/25 03:14 03/15/25 03:14 03/15/25 03:14 03/15/25 03:14
I&O
03/14/25 03/15/25 03/16/25
06:59 06:59 06:59
Intake Total 410 / 410 480 / 480
Balance 410 / 410 480 / 480
[2025-03-15 07:55] LABS: ALT (SGPT) 24 U/L (0-35); AST (SGOT) 27 U/L (14-36); Albumin 2.9 g/dl (3.5-5.0); Alkaline Phosphatase 90 U/L (38-126); Blood Urea Nitrogen 19 mg/dl (7-17); Calcium 8.8 mg/dl (8.4-10.2); Carbon Dioxide 23 mmol/L (22-30); Chloride 105 mmol/L (98-107); Estimated Creatinine Clearance 32 ml/min; Glucose 107 mg/dl (70-99); Total Bilirubin 0.8 mg/dl (0.2-1.3); Total Protein 5.6 g/dl (6.3-8.2); eGFR 48.39
[2025-03-15 08:12] LABS: Magnesium 2.1 mg/dl (1.6-2.3); Potassium 3.6 mmol/L (3.5-5.1); Sodium 133 mmol/L (135-145)
[2025-03-15] MEDS: PROTONIX PO (08:25)
[2025-03-15 11:22] VITALS: BP 119/70
--- NOTE | 2025-03-15 11:40 | W.PN.ONC ---
Today's Communication / Plan
-
Argatroban started 03/14 with dropping platelets and concern for HIT
Platelet count up to 42K today
Continue argatroban
HIT Christine pending
If HIT is confirmed, will resume coumadin once platelet count > 100 (will need few day overlap with argatroban)
Close monitoring for bleeding and serial CBC
CBC BID, can collect with labs needed on argatroban protocol d/w nursing
monitor for infection
monitor for bleeding
IV iron for ferritin <100 with anemia
Impression
Impression
p/w rectal bleeding, Hgb 3.7g/dL, warfarin coagulopathy
ABLA/SAGE s/p 3U PRBC on 03/09
s/p neg EGD to 2nd portion of duodenum neg and colon with blood throughout and poor prep
s/p vitamin K and Kcentra 03/09 with INR >8 to 1.3. Heparin resumed 03/10, warfarin 03/11, however, due to worsening thrombocytopenia heparin stopped and last dose of warfarin was on 03/12
Antiphospholipid syndrome (triple positive), w/ h/o thrombosis/CVAs
Thrombocytopenia, progressive with nml platelets on admission ->23,000 today. no B12 or folate deficiency. Dr. Mitchell's review of peripheral smear 03/13 no schistocytes. No evidence of acute DIC with elevated fibrinogen
Plan
Plan
Argatroban started 03/14 with dropping platelets and concern for HIT
Platelet count up to 42K today
Continue argatroban
HIT Christine pending
If HIT is confirmed, will resume coumadin once platelet count > 100 (will need few day overlap with argatroban)
Close monitoring for bleeding and serial CBC
CBC BID, can collect with labs needed on argatroban protocol d/w nursing
monitor for infection
monitor for bleeding
IV iron for ferritin <100 with anemia
Subjective/Objective
Subjective/Objective
sleepy, no acute issues
Vital Signs:
Vital Signs
Temp Pulse Resp BP Pulse Ox
98.1 F 96 16 119/70 98
03/15/25 11:22 03/15/25 11:22 03/15/25 11:22 03/15/25 11:22 03/15/25 11:22
Lab Results:
Laboratory Data
WBC 8.5 10^3/uL (4.8-10.8) 03/15/25 06:41
Hgb 9.2 g/dL (12.0-16.0) L 03/15/25 06:41
Plt Count 42 10^3/uL (130-400) L D 03/15/25 06:41
PT 25.4 Sec (11.4-14.6) H 03/15/25 06:41
INR 2.30 03/15/25 06:41
APTT 106.2 Sec (23.4-35.0) H 03/15/25 06:41
eGFR 48.39 03/15/25 06:41
[2025-03-15 11:51] LABS: APTT 105.3 Sec (23.4-35.0)
[2025-03-15] MEDS: FERRLECIT 110 MG IV (13:37)
--- NOTE | 2025-03-15 14:23 | PTCARENOTE ---
Addendum entered by Padmini Latham RN 03/15/25 14:57:
Pump programmed for 0.1ml/hr and started. PTT and CBC ordered for 1899.
Addendum entered by Padmini Latham RN 03/15/25 14:27:
Correction - Argatroban gtt placed on hold at 14:15 as per .
Original Note:
PTT result at 105.3. Discussed with pharmacy for new rate to be 0.053 mcg/kg/min which equals 0.1ml/hr. Pump would not let me program this small of a dose. Notified pharmacy and MD. Argatroban gtt placed on hold at 14:45 as per .
[2025-03-15 15:49] VITALS: BP 112/58
[2025-03-15 18:54] LABS: % Basophils 0.3 % (0-2); % Eosinophils 0.8 % (0-6); % Immature Granulocytes 1.4 % (0-0.5); % Lymphocytes 5.2 % (20.5-51.1); % Monocytes 6.7 % (1.7-9.3); % Neutrophils 85.6 % (42.2-75.2); Absolute Eosinophils 0.1 10^3/uL (0-0.7); Absolute Immature Granulocytes 0.1 10^3/uL (0-0.05); Absolute Lymphocytes 0.4 10^3/uL (1.2-3.4); Absolute Monocytes 0.5 10^3/uL (0.1-0.6); Absolute Neutrophils 6.2 10^3/uL (1.4-6.5); Hematocrit 25.6 % (37.0-47.0); Hemoglobin 8.5 g/dL (12.0-16.0); Mean Corp Hgb Conc. 33.2 g/dL (33.0-37.0); Mean Corpuscular Hgb 28.8 pg (27.0-31.0); Mean Corpuscular Volume 86.8 fL (81.0-99.0); Mean Platelet Volume 10.6 fL (7.4-10.4); Nucleated Red Blood Cells % 0.4 %; Platelet Count 61 10^3/uL (130-400); Red Blood Cell Count 2.95 10^6/uL (4.20-5.40); Red Cell Dist. Width 16.4 % (11.5-14.5); White Blood Cell Count 7.3 10^3/uL (4.8-10.8)
[2025-03-15 18:59] LABS: APTT 116.1 Sec (23.4-35.0)
[2025-03-15] MEDS: PROTONIX 40 MG PO (19:13)
[2025-03-15 19:47] VITALS: BP 157/96
[2025-03-15] MEDS: ARGATROBAN 252.5 MG IV (23:08)
[2025-03-15 23:34] VITALS: BP 149/90
[2025-03-15 23:57] LABS: APTT 102.5 Sec (23.4-35.0)
[2025-03-16] VITALS (7 sets, daily range): BP systolic 136–162; BP diastolic 78–92
[2025-03-16 05:13] LABS: Hematocrit 23.5 % (37.0-47.0); Hemoglobin 7.9 g/dL (12.0-16.0); Mean Corp Hgb Conc. 33.6 g/dL (33.0-37.0); Mean Corpuscular Hgb 28.4 pg (27.0-31.0); Mean Corpuscular Volume 84.5 fL (81.0-99.0); Mean Platelet Volume 10.7 fL (7.4-10.4); Platelet Count 59 10^3/uL (130-400); Red Blood Cell Count 2.78 10^6/uL (4.20-5.40); Red Cell Dist. Width 15.7 % (11.5-14.5); White Blood Cell Count 6.3 10^3/uL (4.8-10.8)
[2025-03-16 05:18] LABS: INR 1.97; PT 22.6 Sec (11.4-14.6)
[2025-03-16 05:20] LABS: APTT 94.1 Sec (23.4-35.0)
--- NOTE | 2025-03-16 07:27 | W.PN.UPDATE ---
Update Note
Progress Note Update
Platelet count trending up on argatroban. Continue per protocol.
Daily CBC.
Will resume coumadin when platelet count nears normal
--- NOTE | 2025-03-16 09:07 | W.PN.HOSP.TC ---
Today's Communication/Plan
-
Assessment / Plan
Assessment / Plan
NAD
Scleral Anicteric
MMM
No JVD
CTABL
RRR, S1/S2
Soft, NT, ND, BS+
Warm, Dry
Left upper extremity contracted
Left lower extremity with some ecchymosis associated around the knee effusion/swelling
AA, facial droop appears improved
Calm
Acute blood loss anemia secondary to upper GI bleeding with a s/p 3 units PRBC supratherapeutic INR
Hgb stable
S/p 3 units PRBC
S/p Kcentra and vitamin K
Hold Coumadin
PPI
GI s/p EGD/C-Scope EGD findings without acute pathology noted. C-scope findings with old blood and congested mucosa of the rectum with some erythema. Internal hemorrhoids.
If noted more bleeding hemodynamically unstable obtain stat stat CT GI bleed study and start pressor support if needed along with blood transfusion
TODD Resovled
Lupus anticoagulant
Has not recieved Coumadin since, daily INR, goal 2-3, Inr 1.9. Hold coumadin until plt >100K
Consulted hematology for recommendation in terms along term anticoagulation as she has had life-threatening bleeding and presented with hemoglobin of 3.7
-Post bidirectional scope GI recommended to initiate heparin drip
Anxiety/depression
Continue olanzapine and sertraline
Hypothyroidism
Continue levothyroxine
Thrombocytopenia�acute
Hematolgy initally not concerned for HIT, however PLT remained low with a juana of 23, sterefore, hematolgy started agatroban, plt improving slightly
Will go ahead and hold heparin drip until platelet count improves to greater than 50. Hematology following
Will do clinicals concern for DIC at this time as no schistocytes on peripheral smear and fibrinogen in the 600s
Hypokalemia replete
Hyponatremia encourage po itnake
Anticipated Discharge: > 48 hours
Subjective/Interval History
-
Date of Service: March 16, 2025
seen and examined. no new complaints. no acute ovenright events
Objective Data
-
Labs:
Laboratory Results
03/15/25 03/16/25 03/16/25
23:36 04:49 04:49
WBC 6.3
Hgb 7.9 L
Hct 23.5 L
Plt Count 59 L
PT Cancelled 22.6 H
INR Cancelled
APTT 102.5 H
03/16/25 03/16/25
04:49 10:00
WBC
Hgb
Hct
Plt Count
PT
INR 1.97
APTT 94.1 H Pending
Vital Signs:
Vital Signs
Temp Pulse Resp BP Pulse Ox
98.3 F 89 18 162/91 96
03/16/25 07:07 03/16/25 07:07 03/16/25 07:07 03/16/25 07:07 03/16/25 07:07
I&O
03/15/25 03/16/25 03/17/25
06:59 06:59 06:59
Intake Total 480 / 480 600 / 600
Balance 480 / 480 600 / 600
[2025-03-16] MEDS: PROTONIX 40 MG PO ×2 (09:50→19:48)
[2025-03-16 10:46] LABS: APTT 91.6 Sec (23.4-35.0)
[2025-03-16 14:33] LABS: APTT 97.5 Sec (23.4-35.0)
[2025-03-16] MEDS: FERRLECIT 110 MG IV (15:25)
[2025-03-16] MEDS: ARIXTRA 5 MG SC (20:17)
[2025-03-17 03:21] VITALS: BP 124/80
[2025-03-17 07:21] LABS: PT 24.6 Sec (11.4-14.6)
[2025-03-17 07:28] VITALS: BP 148/81
[2025-03-17 07:57] LABS: Hematocrit 24.2 % (37.0-47.0); Mean Corp Hgb Conc. 33.1 g/dL (33.0-37.0); Mean Corpuscular Hgb 28.3 pg (27.0-31.0); Mean Corpuscular Volume 85.5 fL (81.0-99.0); Mean Platelet Volume 10.1 fL (7.4-10.4); Platelet Count 68 10^3/uL (130-400); Red Blood Cell Count 2.83 10^6/uL (4.20-5.40); Red Cell Dist. Width 15.4 % (11.5-14.5); White Blood Cell Count 4.3 10^3/uL (4.8-10.8)
--- NOTE | 2025-03-17 08:02 | W.PN.HOSP.TC ---
Today's Communication/Plan
-
Monitor platelet count
Follow HIT panel
Continue fondaparinux as advised by heme-onc
Assessment / Plan
Assessment / Plan
Impression
Patient is a 69-year-old female with extensive past medical history including hypertension, hyperlipidemia, history of CVA with residual expressive aphasia,rectal cancer s/p chemo and dementia who presented with rectal bleeding. She resides in a
dementia unit at [facility]. Developed diarrhea stool with demetrio blood per EMS and was brought to ER for further care.
S/p bidirectional scope, no acute pathology noted except for congested mucosa of rectum and internal hemorrhoids.
Has history of antiphospholipid syndrome, on chronic Coumadin therapy, supratherapeutic INR on presentation, reverted with Kcentra and vitamin K.
Current issue is her platelet counts, heme-onc following
Stroke alert during her stay in the hospital, no evidence of stroke on CT and CTA. Low platelet count, not a candidate for TNK.
Platelet count improved to 68, continue to monitor, once above 100 can start bridging with heparin to resume Coumadin.
Assessment/plan
#Acute blood loss anemia secondary to lower GI bleed
Endoscopy and colonoscopy could not explain the bleed
Vitamin B12 and folate normal
Peripheral smear no schistocytes, no evidence of acute DIC
Hemoglobin stable
S/p 3 units PRBC
S/p Kcentra and vitamin K
#TODD Resovled-
#Acute thrombocytopenia
Progressive thrombocytopenia with platelet count dropped to as low as 23, Coumadin on hold, started on argatroban, platelet count started to improve, currently on fondaparinux
Monitor platelet [id number] now
Awaiting HIT results-if confirmed, resume Coumadin once platelet count greater than 100 with overlap with argatroban,
CBC twice daily
No clinical concern for DIC at this time, no schistocytes on peripheral smear and fibrinogen is in 600s
Heme-onc consult appreciated-would likely continue fondaparinux indefinitely to minimize issues with warfarin dosing and supratherapeutic INR
#Lupus anticoagulant
High risk of thrombosis
Continue fondaparinux for now, heme-onc following regarding final recommendations for patient's chronic anticoagulation
#Anxiety/depression
Continue olanzapine and sertraline
#Hypothyroidism
Continue levothyroxine
#Hypokalemia replete as needed
#Hyponatremia encourage po intake
CODE STATUS-DNR
DVT prophylaxis-fondaparinux
Anticipated Discharge: 24 - 48 hours
Subjective/Interval History
-
Date of Service: March 17, 2025
Patient does not speak much due to residual expressive aphasia, no other issues, denies any complaints with head nodding
Objective Data
-
Labs:
Laboratory Results
03/17/25
06:27
WBC 4.3 L
Hgb 8.0 L
Hct 24.2 L
Plt Count 68 L
PT 24.6 H
INR 2.20
Vital Signs:
Vital Signs
Temp Pulse Resp BP Pulse Ox
97.6 F 74 18 148/81 95
03/17/25 07:28 03/17/25 07:28 03/17/25 07:28 03/17/25 07:28 03/17/25 07:28
I&O
03/16/25 03/17/25 03/18/25
06:59 06:59 06:59
Intake Total 600 / 600 840 / 840
Balance 600 / 600 840 / 840
Review of Systems
-
All other systems: Reviewed and negative
Physical Exam
-
General: No Apparent Distress, Cachectic and Other (Contractures in left arm, residual effects of CVA in 2019)
HEENT: Moist Mucous Membranes and Anicteric
Respiratory: Clear to Auscultation; Negative Wheezes, Rales or Rhonchi
Cardiac: Regular Rhythm and S1/S2
GI: Soft, Nontender, Nondistended and Normal Bowel Sounds
Musculoskeletal: No Clubbing, No Cyanosis and Other (Bruising over bilateral knees and legs)
Skin: Warm, Dry and Other (Bruising over the knees)
Neuro: Awake, Oriented (To name only) and Other (Left upper extremity contracted left lower extremity ecchymosis associated with knee effusion/swelling)
Psych: Calm
--- NOTE | 2025-03-17 09:12 | W.PN.ONC ---
Today's Communication / Plan
-
Platelet count improving
Argatroban was stopped, switched to fondaparinux on 03/16 due to inability to dose at appropriate level (very low), suspect baseline PTT elevation from antiphospholipid syndrome is interfering with ability to accurately dose argatroban
Continue fondaparinux
Await HIT Christine
Would likely continue fondaparinux indefinitely to minimize issues with warfarin dosing and supratherapeutic INR/bleeding
Impression
Impression
p/w rectal bleeding, Hgb 3.7g/dL, warfarin coagulopathy
ABLA/SAGE s/p 3U PRBC on 03/09
s/p neg EGD to 2nd portion of duodenum neg and colon with blood throughout and poor prep
s/p vitamin K and Kcentra 03/09 with INR >8 to 1.3. Heparin resumed 03/10, warfarin 03/11, however, due to worsening thrombocytopenia heparin stopped and last dose of warfarin was on 03/12
Antiphospholipid syndrome (triple positive), w/ h/o thrombosis/CVAs
Thrombocytopenia, progressive with nml platelets on admission. no B12 or folate deficiency. Dr. Mitchell's review of peripheral smear 03/13 no schistocytes. No evidence of acute DIC with elevated fibrinogen
Vascular dementia
Plan
Plan
Platelet count improving
Argatroban was stopped, switched to fondaparinux on 03/16 due to inability to dose at appropriate level (very low), suspect baseline PTT elevation from antiphospholipid syndrome is interfering with ability to accurately dose argatroban
Continue fondaparinux
Await HIT Christine
Would likely continue fondaparinux indefinitely to minimize issues with warfarin dosing and supratherapeutic INR/bleeding
Subjective/Objective
Subjective/Objective
non verbal this am, makes eye contact.
No bleeding per RN
Vital Signs:
Vital Signs
Temp Pulse Resp BP Pulse Ox
97.6 F 74 18 148/81 95
03/17/25 07:28 03/17/25 07:28 03/17/25 07:28 03/17/25 07:28 03/17/25 09:09
Lab Results:
Laboratory Data
WBC 4.3 10^3/uL (4.8-10.8) L 03/17/25 06:27
Hgb 8.0 g/dL (12.0-16.0) L 03/17/25 06:27
Plt Count 68 10^3/uL (130-400) L 03/17/25 06:27
PT 24.6 Sec (11.4-14.6) H 03/17/25 06:27
INR 2.20 03/17/25 06:27
APTT 127.0 Sec (23.4-35.0) H 03/16/25 18:02
eGFR 48.39 03/15/25 06:41
Orders
Orders
Orders From Last 24 Hours
03/16/25 21:00
Fondaparinux Sodium [Arixtra] 5 mg SC QPM
[2025-03-17] MEDS: PROTONIX 40 MG PO ×2 (09:13→20:37)
[2025-03-17 11:18] VITALS: BP 136/74
[2025-03-17] MEDS: FERRLECIT 110 MG IV (13:50)
[2025-03-17] MEDS: FLUSH (NSS) 1 FLUSH IV (13:50)
--- NOTE | 2025-03-17 14:18 | W.PN.UPDATE ---
Update Note
Progress Note Update
Seen and examined by me independently in collaboration with the medical radiation dosimetrist.
Lab data and imaging data reviewed.
Addendum as below :
GI bleed with seems to have resolved. Blood loss anemia seems to be stable.
Ongoing evaluation for thrombocytopenia which is improving. Continue with arixtra and transition to Coumadin when okay from hematology standpoint.
[2025-03-17 15:00] VITALS: BP 146/84
--- NOTE | 2025-03-17 16:50 | PTCARENOTE ---
Pt awake,alert, non-verbal; nods head in response to questions; follows commands appropriately. Pt able to move RUE/RLE; Lt hand contracted; has occ slight movement; moves LLE slightly randomly. Pt has slight Lt facial droop. VSS. On room air-
pulse ox 97%, no SOB noted. Abd soft, rounded, ab PO; appetite fair. Aspir prec maintained. Incont BM and urine. Resting in bed at present. Will continue to monitor.
[2025-03-17] MEDS: ARIXTRA 5 MG SC (17:29)
[2025-03-17 22:54] VITALS: BP 141/87
--- NOTE | 2025-03-18 07:27 | W.PN.HOSP.TC ---
Addendum entered and electronically signed by Alberto Elam MD 03/18/25 14:26:
Seen and examined by me independently in collaboration with the medical sociologist.
Lab data and imaging data reviewed.
Addendum as below :
Patient hemodynamically stable and H&H stable.
Slow improvement in platelets noted. Patient had on Arixtra and Coumadin on hold. HIT pending. Hematology following.
DC back to facility when okay from hematology standpoint.
Original Note:
Today's Communication/Plan
-
Follow platelet counts
Follow-up HIT panel
Reach out to heme-onc and discuss choice of anticoagulation on discharge
Assessment / Plan
Assessment / Plan
Impression
Patient is a 69-year-old female with extensive past medical history including hypertension, hyperlipidemia, history of CVA with residual expressive aphasia,rectal cancer s/p chemo and dementia who presented with rectal bleeding. She resides in a
dementia unit at [facility]. Developed diarrhea stool with demetrio blood per EMS and was brought to ER for further care.
S/p bidirectional scope, no acute pathology noted except for congested mucosa of rectum and internal hemorrhoids.
Has history of antiphospholipid syndrome, on chronic Coumadin therapy, supratherapeutic INR on presentation, reverted with Kcentra and vitamin K.
Current issue is her platelet counts, heme-onc following
Stroke alert during her stay in the hospital, no evidence of stroke on CT and CTA. Low platelet count, not a candidate for TNK.
Platelet count improved to 68, continue to monitor, once above 100 can start bridging with heparin to resume Coumadin.
Assessment/plan
#Acute blood loss anemia secondary to lower GI bleed
Endoscopy and colonoscopy could not explain the bleed
Vitamin B12 and folate normal
Peripheral smear no schistocytes, no evidence of acute DIC
Hemoglobin stable
S/p 3 units PRBC
S/p Kcentra and vitamin K
#TODD Resovled-serum creatinine stable at 1.1-1.2
#Acute thrombocytopenia
Progressive thrombocytopenia with platelet count dropped to as low as 23, Coumadin on hold, started on argatroban, held argatroban on 03/16 as platelet count started to improve, currently on fondaparinux
Monitor platelet [id number] now
Awaiting HIT [id number] consult appreciated-would likely continue fondaparinux indefinitely to minimize issues with warfarin dosing and supratherapeutic INR
No clinical concern for DIC at this time, no schistocytes on peripheral smear and fibrinogen is in 600s
#Lupus anticoagulant
High risk of thrombosis
Continue fondaparinux for now, heme-onc following regarding final recommendations for patient's chronic anticoagulation
#Anxiety/depression
Continue olanzapine and sertraline
#Hypothyroidism
Continue levothyroxine
#Hypokalemia replete as needed
#Hyponatremia encourage po intake
CODE STATUS-DNR
DVT prophylaxis-fondaparinux
Anticipated Discharge: 24 - 48 hours
Subjective/Interval History
-
Date of Service: March 18, 2025
GI bleed resolved, platelet count improving, patient communicates with head nodding and occasional 1-2 words, history of dementia, reports no issues
Objective Data
-
Labs:
Laboratory Results
03/18/25
06:48
WBC Pending
Hgb Pending
Hct Pending
Plt Count Pending
PT Pending
INR Pending
Sodium Pending
Potassium Pending
Chloride Pending
Carbon Dioxide Pending
BUN Pending
Creatinine Pending
Glucose Pending
Calcium Pending
Vital Signs:
Vital Signs
Temp Pulse Resp BP Pulse Ox
98.3 F 90 16 141/87 95
03/17/25 22:54 03/17/25 22:54 03/17/25 22:54 03/17/25 22:54 03/17/25 22:54
I&O
03/17/25 03/18/25 03/19/25
06:59 06:59 06:59
Intake Total 840 / 840 590 / 590
Balance 840 / 840 590 / 590
Review of Systems
-
All other systems: Reviewed and negative
Physical Exam
-
General: No Apparent Distress, Cachectic and Other (Contractures in the left arm)
HEENT: Anicteric and Other (Breathing on room air)
Respiratory: Clear to Auscultation; Negative Wheezes, Rales or Rhonchi
Cardiac: Regular Rhythm and S1/S2
GI: Soft, Nontender, Nondistended and Normal Bowel Sounds
Musculoskeletal: No Clubbing, No Cyanosis and Other (Bruising over bilateral knees and legs)
Skin: Warm and Dry
Neuro: Awake, Oriented and Other (Left upper extremity contracture, left lower extremity ecchymosis associated with knee swelling)
Psych: Calm
[2025-03-18 07:45] VITALS: BP 138/76
[2025-03-18 07:45] LABS: % Basophils 0.4 % (0-2); % Immature Granulocytes 4.3 % (0-0.5); % Lymphocytes 6.3 % (20.5-51.1); % Monocytes 8.7 % (1.7-9.3); % Neutrophils 79.3 % (42.2-75.2); Absolute Eosinophils 0.1 10^3/uL (0-0.7); Absolute Immature Granulocytes 0.2 10^3/uL (0-0.05); Absolute Lymphocytes 0.3 10^3/uL (1.2-3.4); Absolute Monocytes 0.4 10^3/uL (0.1-0.6); Absolute Neutrophils 3.9 10^3/uL (1.4-6.5); Hemoglobin 8.4 g/dL (12.0-16.0); Mean Corp Hgb Conc. 33.6 g/dL (33.0-37.0); Mean Corpuscular Hgb 28.9 pg (27.0-31.0); Mean Corpuscular Volume 85.9 fL (81.0-99.0); Mean Platelet Volume 9.6 fL (7.4-10.4); Nucleated Red Blood Cells % 0.4 %; Platelet Count 69 10^3/uL (130-400); Red Blood Cell Count 2.91 10^6/uL (4.20-5.40); Red Cell Dist. Width 15.3 % (11.5-14.5); White Blood Cell Count 4.9 10^3/uL (4.8-10.8)
[2025-03-18 07:47] LABS: INR 1.61; PT 19.4 Sec (11.4-14.6)
[2025-03-18 08:25] LABS: Blood Urea Nitrogen 21 mg/dl (7-17); Calcium 8.4 mg/dl (8.4-10.2); Carbon Dioxide 24 mmol/L (22-30); Chloride 105 mmol/L (98-107); Estimated Creatinine Clearance 35 ml/min; Glucose 104 mg/dl (70-99); Potassium 3.9 mmol/L (3.5-5.1); Sodium 134 mmol/L (135-145); eGFR 53.72
[2025-03-18] MEDS: PROTONIX 40 MG PO ×2 (08:50→20:20)
--- NOTE | 2025-03-18 10:16 | W.PN.ONC2 ---
Today's Communication / Plan
-
.
Impression
Impression
p/w rectal bleeding, Hgb 3.7g/dL, warfarin coagulopathy
ABLA/SAGE s/p 3U PRBC on 03/09 -Hgb stable
s/p neg EGD to 2nd portion of duodenum neg and colon with blood throughout and poor prep
s/p vitamin K and Kcentra 03/09 with INR >8 to 1.3. Heparin resumed 03/10, warfarin 03/11, however, due to worsening thrombocytopenia heparin stopped and last dose of warfarin was on 03/12
Antiphospholipid syndrome (triple positive), w/ h/o thrombosis/CVAs
Thrombocytopenia, progressive with nml platelets on admission. no B12 or folate deficiency. Dr. Mitchell's review of peripheral smear 03/13 no schistocytes. No evidence of acute DIC with elevated fibrinogen
Vascular dementia
Plan
Plan
Platelet count improving, 69,000 today
Argatroban was stopped, switched to fondaparinux on 03/16 due to inability to dose at appropriate level (very low), suspect baseline PTT elevation from antiphospholipid syndrome is interfering with ability to accurately dose argatroban
Continue fondaparinux
Await HIT Christine
Would likely continue fondaparinux vs enoxaparin (if HIT negative) indefinitely to minimize issues with warfarin dosing and supratherapeutic INR/bleeding discussed with pt and today who are agreeable to this plan
at bedside provided updates and questions answered
Subjective/Objective
Subjective
answers 'yes' or 'no' only
denies pain
eating breakfast with 's assistance who reports improved appetite
reports mental status near baseline, however, less verbal than her historic baseline
Vital Signs:
Vital Signs
Temp Pulse Resp BP Pulse Ox
97.7 F 71 18 138/76 99
03/18/25 07:45 03/18/25 07:45 03/18/25 07:45 03/18/25 07:45 03/18/25 07:45
Lab Results:
Laboratory Data
WBC 4.9 10^3/uL (4.8-10.8) 03/18/25 06:48
Hgb 8.4 g/dL (12.0-16.0) L 03/18/25 06:48
Plt Count 69 10^3/uL (130-400) L 03/18/25 06:48
PT 19.4 Sec (11.4-14.6) H 03/18/25 06:48
INR 1.61 03/18/25 06:48
APTT 127.0 Sec (23.4-35.0) H 03/16/25 18:02
eGFR 53.72 03/18/25 06:48
Physical Exam
HEENT: Moist Mucous Membranes; No Jaundice
Cardiology: Normal Sinus Rhythm
Pulmonary: Clear
GI: Soft
Extremities: Pulses Present; No Edema
Neuro: Other (left hemiparesis, follows simple commands, awake and alert)
Orders
Orders
Orders From Last 24 Hours
03/18/25 06:48
INR [Prothrombin Time] IN AM
03/19/25 06:00
Complete Blood Count/No Diff IN AM
03/20/25 06:00
Complete Blood Count/No Diff IN AM
03/21/25 06:00
Complete Blood Count/No Diff IN AM
--- NOTE | 2025-03-18 14:48 | CM ---
Patient at baseline, per PT. Patient will return to [facility]. Will need to call [facility] to review functional status prior to discharge.
Plan: Case management will continue to follow and assist with discharge planning. Back to [facility] pending acceptance back from their administration.
[2025-03-18 15:07] VITALS: BP 128/61
[2025-03-18] MEDS: ARIXTRA 5 MG SC (17:51)
[2025-03-18 23:00] VITALS: BP 147/89
[2025-03-19 07:24] LABS: INR 1.43; PT 17.7 Sec (11.4-14.6)
[2025-03-19 07:29] LABS: Hematocrit 25.8 % (37.0-47.0); Hemoglobin 8.6 g/dL (12.0-16.0); Mean Corp Hgb Conc. 33.3 g/dL (33.0-37.0); Mean Corpuscular Hgb 28.6 pg (27.0-31.0); Mean Corpuscular Volume 85.7 fL (81.0-99.0); Mean Platelet Volume 9.6 fL (7.4-10.4); Platelet Count 83 10^3/uL (130-400); Red Blood Cell Count 3.01 10^6/uL (4.20-5.40); Red Cell Dist. Width 15.2 % (11.5-14.5); White Blood Cell Count 7.4 10^3/uL (4.8-10.8)
[2025-03-19 07:56] VITALS: BP 150/92
[2025-03-19 07:59] LABS: Blood Urea Nitrogen 20 mg/dl (7-17); Calcium 8.7 mg/dl (8.4-10.2); Carbon Dioxide 25 mmol/L (22-30); Chloride 105 mmol/L (98-107); Estimated Creatinine Clearance 35 ml/min; Glucose 117 mg/dl (70-99); Magnesium 1.8 mg/dl (1.6-2.3); Potassium 4.2 mmol/L (3.5-5.1); Sodium 134 mmol/L (135-145); eGFR 53.72
--- NOTE | 2025-03-19 08:32 | W.PN.ONC2 ---
Documented by User: KAMAR Duncan 03/19/25 10:33
Today's Communication / Plan
-
f/u HIT panel
continue fondaparinux
daily cbc
Impression
Impression
p/w rectal bleeding, Hgb 3.7g/dL, warfarin coagulopathy
ABLA/SAGE s/p 3U PRBC on 03/09 -Hgb stable
s/p neg EGD to 2nd portion of duodenum neg and colon with blood throughout and poor prep
s/p vitamin K and Kcentra 03/09 with INR >8 to 1.3. Heparin resumed 03/10, warfarin 03/11, however, due to worsening thrombocytopenia heparin stopped and last dose of warfarin was on 03/12
Antiphospholipid syndrome (triple positive), w/ h/o thrombosis/CVAs
Thrombocytopenia, progressive with nml platelets on admission. no B12 or folate deficiency. Dr. Mitchell's review of peripheral smear 03/13 no schistocytes. No evidence of acute DIC with elevated fibrinogen
Vascular dementia
Plan
Plan
Platelet count improving, 83,000 today
Argatroban was stopped, switched to fondaparinux on 03/16 due to inability to dose at appropriate level (very low), suspect baseline PTT elevation from APLS is interfering with ability to accurately dose argatroban
Continue fondaparinux
Await HIT Christine
Would likely continue fondaparinux vs enoxaparin (if HIT negative) indefinitely to minimize issues with warfarin dosing and supratherapeutic INR/bleeding discussed with pt and today who are agreeable to this plan
at bedside provided updates and questions answered
Subjective/Objective
Subjective
appears comfortable
no distress
able to answer 'yes' or 'no'
denies pain or bleeding
Vital Signs:
Vital Signs
Temp Pulse Resp BP Pulse Ox
98.2 F 90 18 150/92 97
03/19/25 07:56 03/19/25 07:56 03/19/25 07:56 03/19/25 07:56 03/19/25 07:56
Lab Results:
Laboratory Data
WBC 7.4 10^3/uL (4.8-10.8) 03/19/25 06:53
Hgb 8.6 g/dL (12.0-16.0) L 03/19/25 06:53
Plt Count 83 10^3/uL (130-400) L D 03/19/25 06:53
PT 17.7 Sec (11.4-14.6) H 03/19/25 06:53
INR 1.43 03/19/25 06:53
APTT 127.0 Sec (23.4-35.0) H 03/16/25 18:02
eGFR 53.72 03/19/25 06:53
Physical Exam
HEENT: Moist Mucous Membranes; No Jaundice
Cardiology: Normal Sinus Rhythm
Pulmonary: Clear
GI: Soft
Extremities: Pulses Present; No Edema
Neuro: Other (left hemiparesis, follows simple commands, awake and alert)
Orders
Orders
Orders From Last 24 Hours
03/19/25 06:53
Complete Blood Count/No Diff IN AM
03/20/25 06:00
Complete Blood Count/No Diff IN AM
03/21/25 06:00
Complete Blood Count/No Diff IN AM

Documented by User: Darío Mckinnon MD 03/19/25 11:50
Plan
Plan
Platelet count improving, 83,000 today
Argatroban was stopped, switched to fondaparinux on 03/16 due to inability to dose at appropriate level (very low), suspect baseline PTT elevation from APLS is interfering with ability to accurately dose argatroban
Continue fondaparinux
Await HIT Christine
Would likely continue fondaparinux vs enoxaparin (if HIT negative) indefinitely to minimize issues with warfarin dosing and supratherapeutic INR/bleeding discussed with pt and today who are agreeable to this plan
at bedside provided updates and questions answered
Hematology Addendum:
Patient seen and evaluated and agree w/ [employer] SALESPERSON note and plan as outlined
-plts stable - no bleeding
-cont arixtra
-f/u HITab
[2025-03-19] MEDS: PROTONIX 40 MG PO ×2 (08:53→20:11)
[2025-03-19] MEDS: FLUSH (NSS) 1 FLUSH IV (08:54)
--- NOTE | 2025-03-19 12:06 | W.PN.HOSP.TC ---
Addendum entered and electronically signed by Alberto Elam MD 03/19/25 17:26:
Seen and examined by me independently in collaboration with the medical laboratory specialist.
Lab data and imaging data reviewed.
Addendum as below :
No new issues. Await platelets to improve and for transition of Arixtra to Coumadin. Discharge when okay from hematology standpoint
Original Note:
Today's Communication/Plan
-
Awaiting HIT panel
Continue to monitor platelet count and any signs of bleed/thrombosis
Follow heme-onc recommendations
Assessment / Plan
Assessment / Plan
Impression
Patient is a 69-year-old female with extensive past medical history including hypertension, hyperlipidemia, history of CVA with residual expressive aphasia,rectal cancer s/p chemo and dementia who presented with rectal bleeding. She resides in a
dementia unit at [facility]. Developed diarrhea stool with demetrio blood per EMS and was brought to ER for further care.
S/p bidirectional scope, no acute pathology noted except for congested mucosa of rectum and internal hemorrhoids.
Has history of antiphospholipid syndrome, on chronic Coumadin therapy, supratherapeutic INR on presentation, reverted with Kcentra and vitamin K.
Current issue is her platelet counts, heme-onc following
Stroke alert during her stay in the hospital, no evidence of stroke on CT and CTA. Low platelet count, not a candidate for TNK.
Platelet count improved to 83, continue to monitor, once above 100 can start bridging with heparin to resume Coumadin.
Assessment/plan
#Acute blood loss anemia secondary to lower GI bleed
Endoscopy and colonoscopy could not explain the bleed
Vitamin B12 and folate normal
Peripheral smear no schistocytes, no evidence of acute DIC
Hemoglobin stable
S/p 3 units PRBC
S/p Kcentra and vitamin K
#TODD Resovled-serum creatinine stable at 1.1-1.2
#Acute thrombocytopenia
Progressive thrombocytopenia with platelet count dropped to as low as 23, Coumadin on hold, started on argatroban, held argatroban on 03/16 as platelet count started to improve, currently on fondaparinux
Monitor platelet [id number] now
Awaiting HIT osnmxae-Sfke-ejm consult appreciated-would likely continue fondaparinux indefinitely to minimize issues with warfarin dosing and supratherapeutic INR
No clinical concern for DIC at this time, no schistocytes on peripheral smear and fibrinogen is in 600s
#Lupus anticoagulant
High risk of thrombosis
Continue fondaparinux for now, heme-onc following regarding final recommendations for patient's chronic anticoagulation
#Anxiety/depression
Continue olanzapine and sertraline
#Hypothyroidism
Continue levothyroxine
#Hypokalemia replete as needed
#Hyponatremia encourage po intake
Called patient's Santy Beatty and updated him about patient's condition. I informed him that the patient's platelet counts are improving, we are waiting for HIT panel and once that is back we can decide about the anticoagulation with
heme-onc and plan discharge
CODE STATUS-DNR
DVT prophylaxis-fondaparinux
Anticipated Discharge: 24 - 48 hours
Subjective/Interval History
-
Date of Service: March 19, 2025
Denies any issues, lying comfortably in bed
Objective Data
-
Labs:
Laboratory Results
03/19/25
06:53
WBC 7.4
Hgb 8.6 L
Hct 25.8 L
Plt Count 83 L D
PT 17.7 H
INR 1.43
Sodium 134 L
Potassium 4.2
Chloride 105
Carbon Dioxide 25
BUN 20 H
Creatinine 1.1 H
Glucose 117 H
Calcium 8.7
Vital Signs:
Vital Signs
Temp Pulse Resp BP Pulse Ox
98.2 F 90 18 150/92 97
03/19/25 07:56 03/19/25 07:56 03/19/25 07:56 03/19/25 07:56 03/19/25 08:50
I&O
03/18/25 03/19/25 03/20/25
06:59 06:59 06:59
Intake Total 590 / 590 180 / 180
Balance 590 / 590 180 / 180
Review of Systems
-
All other systems: Reviewed and negative
Physical Exam
-
General: No Apparent Distress, Cachectic and Other (Fractures in left arm, bruising over hands and left lower extremity)
HEENT: Anicteric
Respiratory: Clear to Auscultation; Negative Wheezes, Rales or Rhonchi
Cardiac: Regular Rhythm and S1/S2
GI: Soft, Nontender and Normal Bowel Sounds
Musculoskeletal: No Clubbing, No Cyanosis, No Edema and Other (Bruises over both knees, left lower extremity, right hand)
Skin: Warm and Dry
Neuro: Awake and Oriented
Psych: Calm
[2025-03-19 16:13] VITALS: BP 140/90
--- NOTE | 2025-03-19 16:17 | DOWNTIME ---
There was a [employer] Downtime on 03/19/2025 from 1230 to 03/19/2025 at 1550. Downtime documentation of patient's care, including medication administrations, has been reconciled in the electronic record per guidelines. Refer to the
patient's paper chart under the miscellaneous tab to see printed paper medication records and downtime forms.
--- NOTE | 2025-03-19 16:26 | PTCARENOTE ---
Pt sleeping but easily arousable; difficult to assess full orientation; nods head to questions ; occ attempts to verbalize 'no'; has slight Lt facial droop. LUE contracted; LLE weak; has slight movement LUE/LLE at times. Moves RUE/RLE slowly. pt
cooperative; follows commands appropriately. VSS. On room air- pulse ox 97%, no SOB noted. Abd sodt, ab PO; appetite fair. Incont large amts urine. Resting quietly at present. Will continue to monitor.
[2025-03-19] MEDS: ARIXTRA 5 MG SC (17:39)
[2025-03-19 23:57] VITALS: BP 146/63
[2025-03-20 07:05] VITALS: BP 117/77
[2025-03-20 07:53] LABS: Hematocrit 26.1 % (37.0-47.0); Hemoglobin 8.6 g/dL (12.0-16.0); Mean Corpuscular Hgb 28.6 pg (27.0-31.0); Mean Corpuscular Volume 86.7 fL (81.0-99.0); Mean Platelet Volume 11.3 fL (7.4-10.4); Platelet Count 88 10^3/uL (130-400); Red Blood Cell Count 3.01 10^6/uL (4.20-5.40); Red Cell Dist. Width 15.7 % (11.5-14.5); White Blood Cell Count 7.6 10^3/uL (4.8-10.8)
[2025-03-20 07:58] LABS: INR 1.37; PT 17.3 Sec (11.4-14.6)
[2025-03-20] MEDS: PROTONIX 40 MG PO (08:21)
[2025-03-20] MEDS: FLUSH (NSS) 2 FLUSH IV (08:21)
[2025-03-20] MEDS: SENOKOT-S 1 TABLET PO (08:28)
--- NOTE | 2025-03-20 08:36 | W.PN.ONC2 ---
Today's Communication / Plan
-
discharge planning
Impression
Impression
p/w rectal bleeding, Hgb 3.7g/dL, warfarin coagulopathy
ABLA/SAGE s/p 3U PRBC on 03/09 -Hgb stable
s/p neg EGD to 2nd portion of duodenum neg and colon with blood throughout and poor prep
s/p vitamin K and Kcentra 03/09 with INR >8 to 1.3. Heparin resumed 03/10, warfarin 03/11, however, due to worsening thrombocytopenia heparin stopped and last dose of warfarin was on 03/12
Antiphospholipid syndrome (triple positive), w/ h/o thrombosis/CVAs
Thrombocytopenia, progressive with nml platelets on admission. no B12 or folate deficiency. Dr. Mitchell's review of peripheral smear 03/13 no schistocytes. No evidence of acute DIC with elevated fibrinogen
Vascular dementia
Plan
Plan
Platelet count improving, 83,000 today
Argatroban was stopped, switched to fondaparinux on 03/16 due to inability to dose at appropriate level (very low), suspect baseline PTT elevation from APLS is interfering with ability to accurately dose argatroban
Continue fondaparinux
Await HIT Christine
Would likely continue fondaparinux vs enoxaparin (if HIT negative) indefinitely to minimize issues with warfarin dosing and supratherapeutic INR/bleeding- pt and husbandb are agreeable to this plan
Subjective/Objective
Subjective
appears comfortable
no distress
Vital Signs:
Vital Signs
Temp Pulse Resp BP Pulse Ox
97.8 F 69 20 146/63 96
03/19/25 23:57 03/19/25 23:57 03/19/25 23:57 03/19/25 23:57 03/19/25 23:57
Lab Results:
Laboratory Data
WBC 7.6 10^3/uL (4.8-10.8) 03/20/25 07:29
Hgb 8.6 g/dL (12.0-16.0) L 03/20/25 07:29
Plt Count 88 10^3/uL (130-400) L 03/20/25 07:29
PT 17.3 Sec (11.4-14.6) H 03/20/25 07:29
INR 1.37 03/20/25 07:29
APTT 127.0 Sec (23.4-35.0) H 03/16/25 18:02
eGFR 53.72 03/19/25 06:53
Physical Exam
HEENT: Moist Mucous Membranes; No Jaundice
Cardiology: Normal Sinus Rhythm
Pulmonary: Clear
GI: Soft
Extremities: Pulses Present; No Edema
Neuro: Other (left hemiparesis, follows simple commands, awake)
Orders
Orders
Orders From Last 24 Hours
03/21/25 06:00
Complete Blood Count/No Diff IN AM
[2025-03-20 08:40] LABS: Glucose - Point of Care 130 mg/dl (70-99)
--- NOTE | 2025-03-20 08:45 | W.PN.HOSP.TC ---
Addendum entered and electronically signed by Alberto Elam MD 03/20/25 13:18:
Seen and examined by me independently in collaboration with the medical insurance collector.
Lab data and imaging data reviewed.
Addendum as below :
No events overnight.
Improving platelets. Discussed with hematology who recommends to continue Arixtra for now till reviewed in the office. Hold on Coumadin.
Medically stable for discharge to rehab.
More than 30 minutes spent in discharge including
Final examination of the patient
Summarizing hospital stay
Instructions for continuing care to all relevant caregivers
Preparation of discharge records, prescriptions, and referral forms
Total time spent (in minutes): 32 minutes
Original Note:
Today's Communication/Plan
-
Awaiting HIT panel
Heme-onc planning to discharge on Aprinox once HIT panel is back
Daily CBC
Assessment / Plan
Assessment / Plan
Impression
Patient is a 69-year-old female with extensive past medical history including hypertension, hyperlipidemia, history of CVA with residual expressive aphasia,rectal cancer s/p chemo and dementia who presented with rectal bleeding. She resides in a
dementia unit at [facility]. Developed diarrhea stool with demetrio blood per EMS and was brought to ER for further care.
S/p bidirectional scope, no acute pathology noted except for congested mucosa of rectum and internal hemorrhoids.
Has history of antiphospholipid syndrome, on chronic Coumadin therapy, supratherapeutic INR on presentation, reverted with Kcentra and vitamin K.
Current issue is her platelet counts, heme-onc following
Stroke alert during her stay in the hospital, no evidence of stroke on CT and CTA. Low platelet count, not a candidate for TNK.
Platelet count improved to 83, continue to monitor, once above 100 can start bridging with heparin to resume Coumadin.
Assessment/plan
#Acute blood loss anemia secondary to lower GI bleed
Endoscopy and colonoscopy could not explain the bleed-resolved
Hemoglobin stable
S/p 3 units PRBC
S/p Kcentra and vitamin K
#TODD Resovled-serum creatinine stable at 1.1-1.2
#Acute thrombocytopenia
Progressive thrombocytopenia with platelet count dropped to as low as 23, Coumadin on hold, started on argatroban, held argatroban on 03/16 as platelet count started to improve, currently on fondaparinux
Monitor platelet counts-improving 88 now
Awaiting HIT dwxtgng-Luhl-mkf consult appreciated-would likely continue fondaparinux indefinitely to minimize issues with warfarin dosing and supratherapeutic INR
No clinical concern for DIC at this time, no schistocytes on peripheral smear and fibrinogen is in 600s
#Lupus anticoagulant
High risk of thrombosis
Continue fondaparinux for now, heme-onc following regarding final recommendations for patient's chronic anticoagulation
#Anxiety/depression
Continue olanzapine and sertraline
#Hypothyroidism
Continue levothyroxine
#Hypokalemia replete as needed
#Hyponatremia encourage po intake
Called patient's Santy Beatty and updated him about patient's condition. I informed him that the patient's platelet counts are improving, we are waiting for HIT panel and once that is back we can decide about the anticoagulation with
heme-onc and plan discharge
CODE STATUS-DNR
DVT prophylaxis-fondaparinux
Anticipated Discharge: 24 - 48 hours
Subjective/Interval History
-
Date of Service: March 20, 2025
Patient sitting comfortably, initially sleepy, easily arousable, given sips of juice, feels fine
Objective Data
-
Labs:
Laboratory Results
03/20/25
07:29
WBC 7.6
Hgb 8.6 L
Hct 26.1 L
Plt Count 88 L
PT 17.3 H
INR 1.37
Vital Signs:
Vital Signs
Temp Pulse Resp BP Pulse Ox
97.8 F 69 20 146/63 96
03/19/25 23:57 03/19/25 23:57 03/19/25 23:57 03/19/25 23:57 03/19/25 23:57
I&O
03/19/25 03/20/25 03/21/25
06:59 06:59 06:59
Intake Total 180 / 180 680 / 680
Balance 180 / 180 680 / 680
Review of Systems
-
All other systems: Reviewed and negative
Physical Exam
-
General: No Apparent Distress and Other (contractures in left arm, bruising over hands and left extremity)
HEENT: Anicteric
Respiratory: Clear to Auscultation; Negative Wheezes, Rales or Rhonchi
Cardiac: Regular Rhythm and S1/S2
GI: Soft, Nontender and Normal Bowel Sounds
Musculoskeletal: No Clubbing, No Cyanosis, No Edema and Other (Left knee slightly swollen, left lower extremity has bruises)
Skin: Warm and Dry
Neuro: Awake and Other (Unable to assess as patient does not follow commands due to her dementia)
Psych: Calm
[2025-03-20 13:12] VITALS: BP 116/70; PULSE 95
[2025-03-20 13:17] VITALS: BP 116/70; PULSE 95
--- NOTE | 2025-03-20 13:46 | CM ---
Addendum entered by Jeanne Torres 03/20/25 14:09:
[facility] can accept today
Updated Rebecca and spouse on d/c today to SNF
Ambulance transport
IMM verbally reviewed, copy on chart
[facility]
Report: [phone]

Plan: D/c to [facility] today
Original Note:
Chart reviewed. Patient is from [facility]. Patient is stable for d/c today. Discussed d/c w/ Rebecca/top inventory control executive at [facility], requested for PT to see patient to see if patient needs any skilled rehab. CM did share that PT seen on 03/18 and signed
off because patient is w/c dependent and dependent w/ mobility and ADLs. Rebecca shared if PT can see again to determine and would like to plan for SNF.
Discussed w/ PT, seen today as requested, will recommend SNF even though patient is unable to follow cues and unable to meaningfully participate. 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
facility and would like for CM to plan for SNF today. Suggested [facility].
Discussed d/c plan w/ spouse who shared that patient has not walked since August and have not seen patient participate in therapy at [facility] but is agreeable to SNF as he stated she cannot return home if she cannot walk.
Referral placed to [facility], discussed w/ Verónica/admissions, agreeable to accept but will review referral
Updated physician resident on plan for SNF
Plan: [facility] poss can accept today
[2025-03-20 15:00] VITALS: BP 119/73
--- NOTE | 2025-03-20 15:14 | W.DCSUMMARY ---
Discharge Summary
Discharge Data
Date of Admission: 03/09/25
Date of Discharge: 03/20/25
-
Pending Results: No
Hospital Course
Discharging Physician :
Alberto Elam
Disposition :
Snf/half-way
Primary care physician :
Honey Leos
Principal Discharge diagnosis :
Acute blood loss anemia secondary to lower GI bleed/TODD/acute thrombocytopenia
Chronic Discharge diagnosis :
hypertension, hyperlipidemia, prior CVA, vascular dementia, lupus anticoagulant on Coumadin, rectal cancer s/p chemotherapy. hypothyroidism
Hospital Course :
Patient is a 69-year-old who presented with rectal bleeding. She resides in a dementia unit at [facility]. Developed diarrhea stool with demetrio blood per EMS and was brought to ER for further care.S/p bidirectional scope, no
acute pathology noted except for congested mucosa of rectum and internal hemorrhoids.
Has history of antiphospholipid syndrome, on chronic Coumadin therapy, supratherapeutic INR on presentation, reverted with Kcentra and vitamin K.
#Acute blood loss anemia secondary to lower GI bleed
Endoscopy and colonoscopy could not explain the bleed-resolved after warfarin held and INR reversed
Hemoglobin stable
S/p 3 units PRBC
S/p Kcentra and vitamin K
Hemoglobin stable
#TODD Resovled-serum creatinine stable at 1.1-1.2
#Acute thrombocytopenia
After warfarin was held and the bleed issue was resolved, an attempt was made to bridge heparin with warfarin
Sudden drop in platelets the next day, less likely HIT, common with antiphospholipid syndrome but still sudden drop could not be explained
Heme oncology was involved-who thought that the sudden drop could be dilutional/antiphospholipid syndrome/HIT
HIT panel still pending
Warfarin was held during the stay/started on argatroban-once platelet counts started to improve-shifted to fondaparinux
No evidence of DIC
Heme-onc suggested to discharge the patient on fondaparinux for now, platelet count 88, would be reviewed in office on outpatient basis
Important imaging findings :
Head CT 03/14/2025
IMPRESSION:
Moderate size old right frontoparietal infarct.
No acute intracranial infarct or hemorrhage.
Head/neck CTA 03/14/2025
IMPRESSION:
No significant atherosclerosis of the carotid arterial system bilaterally.
No findings to suggest internal carotid artery or vertebral artery dissection bilaterally. Mildly dominant left vertebral artery.
No proximal intracranial arterial stenosis bilaterally.
Discharge Plan
-
Patient Disposition: Correction/SNF
Discharge Diagnosis/Procedures: Acute blood loss anemia secondary to lower GI bleed/TODD/acute thrombocytopenia
Condition: Fair
Diet: Regular
Activity: As tolerated
Driving Restrictions: As prior to admission
Bathing Restrictions: OK to Shower
Activity Restrictions/Additional Instructions:
HIT test report pending.
Referrals:
Chandni Herr MD [Active, Hematology / Oncology] - in one to two weeks
Honey Leos DO [Family Provider, Family Practice] - in less than 1 week
Prescriptions:
New
fondaparinux 5 mg/0.4 mL Syringe
5 mg SC QPM 30 Days Qty: 12 1RF
Continued
alendronate 70 MG tablet
70 mg PO TU
olanzapine 5 mg Tablet
5 mg PO HS
sennosides [senna] 8.6 mg Tablet
8.6 mg PO DAILY
acetaminophen [Tylenol] 325 mg Tablet
650 mg PO Q6HPRN PRN (Reason: mild pain/fever )
famotidine [Pepcid] 20 mg Tablet
20 mg PO DAILY
magnesium hydroxide [Milk of Magnesia] 400 mg/5 mL Suspension
2,400 mg PO DAILYPRN PRN (Reason: CONSTIPATION)
Rx Instructions:
give on day 3 of no bm
ferrous sulfate 325 mg (65 mg iron) Tablet
325 mg PO Q48H
ezetimibe [Zetia] 10 mg Tablet
10 mg PO DAILY
atorvastatin 40 mg Tablet
40 mg PO DAILY
sertraline 100 mg Tablet
100 mg PO DAILY
amlodipine 5 mg Tablet
5 mg PO DAILY
tramadol 50 mg Tablet
50 mg PO TID
levothyroxine 100 mcg Tablet
100 mcg PO DAILY
Discontinued
warfarin 2.5 mg Tablet
2.5 mg PO QPM
Discharge Orders:
Discharge Patient (As Directed); Ordered 03/20/25
Ordered By: Kevin Varela
Discharge Date and Time
Print Language: MONGOLIAN
[2025-03-20] MEDS: ARIXTRA 5 MG SC (16:54)
== END 2025-03-20 17:56 | DRG 814 ==
LOC: 4 EAST ACU 13:23
PROVIDERS: Hospitalist; Nurse Practitioner Acute Care; Nurse Practitioner Adult Health; Nurse Practitioner Family; Physician Assistant Medical; Student in an Organized Health Care Education/Training Program; ADMITTING PHYSICIAN Hospitalist; ATTENDING PHYSICIAN Internal Medicine; CONSULT PHYSICIAN Internal Medicine Critical Care Medicine; CONSULT PHYSICIAN Internal Medicine Gastroenterology; CONSULT PHYSICIAN Internal Medicine Hematology & Oncology; CONSULT PHYSICIAN Psychiatry & Neurology Clinical Neurophysiology; EMERGENCY PHYSICIAN Emergency Medicine; FAMILY PHYSICIAN Family Medicine
PROC: 30283B1 Transfusion of Nonautologous 4-Factor Prothrombin Complex Concentrate into Vein, Percutaneous Approach (ICD-10-PCS; 2025-03-09)
PROC: 30233N1 Transfusion of Nonautologous Red Blood Cells into Peripheral Vein, Percutaneous Approach (ICD-10-PCS; 2025-03-09)
PROC: 0DJD8ZZ Inspection of Lower Intestinal Tract, Via Natural or Artificial Opening Endoscopic (ICD-10-PCS; 2025-03-10)
PROC: 0DJ08ZZ Inspection of Upper Intestinal Tract, Via Natural or Artificial Opening Endoscopic (ICD-10-PCS; 2025-03-10)
DX: D68.61 Antiphospholipid syndrome (principal); G92.8 Other toxic encephalopathy; K62.5 Hemorrhage of anus and rectum; F01.53 Vascular dementia, unspecified severity, with mood disturbance; F01.54 Vascular dementia, unspecified severity, with anxiety; N17.9 Acute kidney failure, unspecified; E87.1 Hypo-osmolality and hyponatremia; R64 Cachexia; Z68.1 Body mass index [BMI] 19.9 or less, adult; D68.32 Hemorrhagic disorder due to extrinsic circulating anticoagulants; D62 Acute posthemorrhagic anemia; F32.A Depression, unspecified; I10 Essential (primary) hypertension; E78.00 Pure hypercholesterolemia, unspecified; M81.0 Age-related osteoporosis without current pathological fracture; K64.0 First degree hemorrhoids; E03.9 Hypothyroidism, unspecified; R15.9 Full incontinence of feces; E87.6 Hypokalemia; D69.6 Thrombocytopenia, unspecified; R47.81 Slurred speech; R29.810 Facial weakness; L89.611 Pressure ulcer of right heel, stage 1; L89.522 Pressure ulcer of left ankle, stage 2; M25.462 Effusion, left knee; Z66 Do not resuscitate; I69.320 Aphasia following cerebral infarction; Z79.01 Long term (current) use of anticoagulants; Z85.048 Personal history of other malignant neoplasm of rectum, rectosigmoid junction, and anus; Z87.11 Personal history of peptic ulcer disease; Z88.2 Allergy status to sulfonamides; Z88.1 Allergy status to other antibiotic agents; Z79.82 Long term (current) use of aspirin; Z79.890 Hormone replacement therapy; Z92.21 Personal history of antineoplastic chemotherapy; Z87.440 Personal history of urinary (tract) infections; Z79.83 Long term (current) use of bisphosphonates
CPT/HCPCS: 0042T; 70450; 70496; 70498; 71045; 80048; 80053; 82248; 82607; 82728; 82746; 82962; 83540; 83550; 83690; 83735; 84100; 84466; 85014; 85018; 85025; 85027; 85379; 85384; 85610; 85730; 86022; 86850; 86900; 86901; 86920; 87070; 93005; 96360; 97163; 97167; 97168; 97530; 99291; J0883; J2916; J7168; P9016; Q9967